=== PATIENT | female | born 1960 | race Caucasian/White ===

== ENCOUNTER → 2020-03-08 | Outpatient (CLI) | payer OTHER, SELFPAY ==
[2015-02-25 07:00] VITALS: BMI 38.9
== END | disposition home or self-care (01) ==
LOC: LABSPEC 15:51
PROVIDERS: PCP Family Medicine; Visit Provider Nurse Practitioner Adult Health
DX: N20.0 Calculus of kidney (principal)
CPT/HCPCS: 87086; 87088

== ENCOUNTER 2023-04-02 13:05 | Emergency (ER) | payer OTHER, SELFPAY ==
[2023-04-02] VITALS (7 sets, daily range): BP systolic 111–144; BP diastolic 74–100; PULSE 104–130; RESP 18–29; TEMP 36.9–37.1; O2SAT 95–100; BMI 31.3
--- NOTE | 2023-04-02 13:13 | NURSING ---
NO OLD EKGS
--- NOTE | 2023-04-02 14:12 | EKG12_ITS ---
Test Reason : DIZZY Blood Pressure : / mmHG Vent. Rate : 119 BPM Atrial Rate : 119 BPM P-R Int : 142 ms QRS Dur : 070 ms QT Int : 322 ms P-R-T Axes : 054 -09 076 degrees QTc Int : 452 ms Sinus tachycardia Cannot rule out Inferior infarct , age undetermined Poor R wave progression Abnormal ECG Confirmed by Bobby Lombardo ([id number]), photography editor KAI BENITES ([id number]) on 04/03/2023 10:56:28 AM Referred By: KODAK/AR Confirmed By:Bobby Lombardo
--- NOTE | 2023-04-02 14:15 | RAD_ITS ---
STUDY: X-RAY CHEST REASON FOR EXAM: Female, 62 years old. Chest pain TECHNIQUE: Single AP portable view of the chest. COMPARISON: None. FINDINGS: EKG electrodes are seen. The lungs are clear and expanded. There is no demonstrated pleural abnormality. Normal size heart. Normal mediastinum and alicja. Normal visualized pulmonary arteries. Normal visualized aortic arch and descending thoracic aorta. There are degenerative changes of the visualized thoracic spine. Calcific tendinitis of the right shoulder. There is no demonstrated abnormality of the visualized soft tissue structures of the upper abdomen. RAD/Chest 1 View (Portable) IMPRESSION: No acute abnormality seen. Calcific tendinitis of the right shoulder. Electronically Signed: Darrel Knight MD at 14:33 EST ,
[2023-04-02] MEDS: 0.9% Normal Saline (1000mL) 1,000 ML 1000 ML IV (14:24)
[2023-04-02 14:32] LABS: Absolute Lymphocyte Count 0.66 X10^3/uL (0.83-4.51); Absolute Neutrophil Count 12.8 X10^3/uL (2.0-7.7); Basophil# 0.03 X10^3/uL; Basophil% 0.2 % (0-1); Eosinophil# 1.56 X10^3/uL; Eosinophils% 9.8 % (0-5); Hematocrit 48.7 % (37-47); Hemoglobin 15.5 g/dL (12.0-15.0); Lymphocyte # 0.66 X10^3/ul (0.83-4.51); Lymphocyte % 4.2 % (19-41); Mean Corp Hgb Conc 31.8 g/dL (32-36); Mean Corpuscular Hgb 28.9 pg (27.0-32.0); Mean Corpuscular Volume 90.7 fL (81-99); Mean Platelet Vol. 10.8 fl (6.2-12.0); Monocyte# 0.57 X10^3/uL; Monocyte% 3.6 % (0-10); NRBC Flagged by Analyzer 0 % (0-5); Neutrophil # 12.79 X10^3/uL (2.7-7.7); Neutrophil % 80.7 % (47-70); POSITIVE MORPHOLOGY YES; Platelet Count 215 K/mm3 (150-450); RBC Distribution Width CV 14.7 % (11.6-14.6); RBC Distribution Width SD 48.5 fl (35.1-43.9); Red Blood Count 5.37 M/mm3 (4.2-5.4); White Blood Count 15.8 K/mm3 (4.4-11.0)
[2023-04-02 14:34] LABS: Differential Indicated SCAN CRITERIA MET
--- NOTE | 2023-04-02 14:39 | CT_ITS ---
EXAM: CT ANGIOGRAPHY HEAD AND NECK WITH INTRAVENOUS CONTRAST CLINICAL INDICATION: Neuro deficit, acute, stroke suspected TECHNIQUE: [place] [facility] [place]/head and neck CT angiography protocol performed with intravenous contrast. This CT exam was performed using one or more of the following dose reduction techniques: automated exposure control, adjustment of the mA and/or kV according to patient size, and/or use of iterative reconstruction technique. MIP reconstructed images were created and reviewed. CONTRAST: IV 100mL [id number] COMPARISON: No relevant prior studies available. FINDINGS: HEAD: RIGHT ANTERIOR CEREBRAL ARTERY: Unremarkable. No occlusion or significant stenosis. Anterior communicating artery is present. No aneurysm. RIGHT MIDDLE CEREBRAL ARTERY: Unremarkable. No occlusion or significant stenosis. No aneurysm. RIGHT POSTERIOR CEREBRAL ARTERY: Unremarkable. No occlusion or significant stenosis. No aneurysm. RIGHT INTRACRANIAL INTERNAL CAROTID ARTERY: There is calcification seen within the distal internal carotid arteries bilaterally at the skull base with no stenosis. No dissection or occlusion. RIGHT INTRACRANIAL VERTEBRAL ARTERY: Unremarkable. No significant stenosis. No dissection or occlusion. LEFT ANTERIOR CEREBRAL ARTERY: Unremarkable. No occlusion or significant stenosis. No aneurysm. LEFT MIDDLE CEREBRAL ARTERY: Unremarkable. No occlusion or significant stenosis. No aneurysm. LEFT POSTERIOR CEREBRAL ARTERY: Unremarkable. No occlusion or significant stenosis. No aneurysm. LEFT INTRACRANIAL INTERNAL CAROTID ARTERY: See above. LEFT INTRACRANIAL VERTEBRAL ARTERY: Unremarkable. No significant stenosis. No dissection or occlusion. BASILAR ARTERY: Unremarkable. No occlusion or significant stenosis. No aneurysm. OTHER VASCULATURE: Left vertebral artery is larger on the right is dominant supplier to the basilar system. No vascular malformation. NECK: RIGHT COMMON CAROTID ARTERY: Unremarkable. No significant stenosis. No dissection or occlusion. RIGHT EXTRACRANIAL INTERNAL CAROTID ARTERY: Unremarkable. No significant stenosis. No dissection or occlusion. RIGHT EXTERNAL CAROTID ARTERY: Unremarkable. No occlusion. RIGHT EXTRACRANIAL VERTEBRAL ARTERY: Unremarkable. No significant stenosis. No dissection or occlusion. LEFT COMMON CAROTID ARTERY: Unremarkable. No significant stenosis. No dissection or occlusion. LEFT EXTRACRANIAL INTERNAL CAROTID ARTERY: There is dense calcification seen within the left carotid bulb and origin of the left internal carotid artery with the internal carotid artery likely narrowed greater than 50% at its origin. There is no soft plaque identified. LEFT EXTERNAL CAROTID ARTERY: Unremarkable. No occlusion. LEFT EXTRACRANIAL VERTEBRAL ARTERY: Unremarkable. No significant stenosis. No dissection or occlusion. BRACHIOCEPHALIC AND SUBCLAVIAN ARTERIES: Unremarkable as visualized. No occlusion or significant stenosis. LUNG APICES: See above. HEAD and NECK: BONES/JOINTS: Unremarkable. No discrete lytic or blastic abnormalities. SOFT TISSUES: Unremarkable. CAROTID STENOSIS REFERENCE USING NASCET CRITERIA: % ICA stenosis = (1 - narrowest ICA diameter/diameter of distal cervical ICA) x 100. Mild - <50% stenosis. Moderate - 50-69% stenosis. Severe - 70-94% stenosis. Near occlusion - 95-99% stenosis. Occluded - 100% stenosis. CT/CTA Head AND Neck W/ Contrast IMPRESSION: Dense calcification in the left carotid bulb and origin of the left internal carotid artery with the left internal carotid artery is narrowed greater than 50% at its origin. No other stenoses are identified. Electronically Signed: Garfield Soto MD at 17:16 EST ,
--- NOTE | 2023-04-02 14:39 | EX.ED.VIS.HA ---
HPI History of Present Illness Chief Complaint: Dizziness Narrative Narrative: 75-year-old female presenting with dizziness, nausea, vomiting. She states she presented to [facility] on the seventh with dizziness, headaches, nausea and vomiting and states she was about 4 days with symptoms until she was seen there. She had been admitted to the hospital admitted vascular studies that she had mixed plaques bilaterally in the carotids. There was significant stenosis in the right ICA of 70%. In the left ICA there was near occlusion. Patient discharged home to follow-up with [facility] but states nobody was calling her back. Today she has been having lightheadedness which is different than her dizziness. She originally had some double vision but now she states she has visual flashes when she moves her eyes around. She still has mild headache. She still vomiting periodically. She is able to hold down some food and fluids. She complains now of having diarrhea. No new foods or change in diet. Patient is on aspirin 81 mg daily. Patient overall feels somewhat better as her double vision is better but now concern for probably dehydration. Denies chest pain or shortness of breath. No fevers or chills. No abdominal pain. [facility] Medical History Diabetes Hypercholesteremia Hypertension Stroke/cerebrovascular accident Home Medications aspirin 81 mg tablet,delayed release 81 mg PO DAILY@0800 02/24/15 [History Last Taken Unknown] atorvastatin 20 mg tablet 20 mg PO QHS 02/24/15 [History Last Taken Unknown] glipizide 10 mg tablet 10 mg PO BIDAC 02/24/15 [History Last Taken Unknown] lisinopril 20 mg tablet 20 mg PO DAILY 02/24/15 [History Last Taken 02/25/15 04:30] metformin 500 mg tablet,extended release 24 hr 1,000 mg PO BID 02/24/15 [History Last Taken Unknown] metoprolol tartrate 100 mg tablet 100 mg PO DAILY 02/24/15 [History Last Taken 02/25/15 04:30] meclizine 25 mg tablet 25 mg PO TID PRN dizziness or vertigo #20 tabs 04/02/23 [Rx Last Taken Unknown] ondansetron 4 mg disintegrating tablet 4 mg PO Q8H PRN PRN Nausea #14 tabs 04/02/23 [Rx Last Taken Unknown] Allergy/AdvReac Type Severity Reaction Status Date / Time No Known Allergies Allergy Verified 04/02/23 13:06 Surgical History History of coronary artery stent placement Social History Smoking Status: Former smoker ROS ROS ED Constitutional Constitutional ED: Denies chills, fever(s) or sweats Eyes Eyes: Denies blurry vision or change in vision ENT ENT ED: Denies ear pain or sore throat Cardiovascular Cardiovascular: Denies chest pain, palpitations or racing heartbeat Respiratory/Chest Respiratory/Chest: Denies cough, dyspnea or sputum Gastrointestinal Gastrointestinal: Reports diarrhea, nausea and vomiting; Denies abdominal pain or constipation Genitourinary Genitourinary ED: Denies dysuria, hematuria or urinary frequency Musculoskeletal Musculoskeletal: Denies arthralgias, myalgias or neck pain Integumentary Denies abscess, Abrasions or rash Neurologic Neurologic: Reports headache(s); Denies paresthesias or weakness Psychiatric Psychiatric: Denies anxiety, depression, suicidal ideation or suicidal thoughts Endocrine Endocrinology: Denies polydipsia or polyuria EXAM Physical Exam Const Vital Signs: 04/02/23 13:06 04/02/23 14:20 04/02/23 15:00 Temperature 98.5 F Temperature Source Temporal Pulse Rate 130 H 124 H 115 H Respiratory Rate 18 21 H 29 H Blood Pressure 111/74 144/92 H Blood Pressure Mean 86 106 Pulse Ox 100 Oxygen Delivery Method Room Air 04/02/23 16:06 04/02/23 16:00 04/02/23 17:00 Temperature Temperature Source Pulse Rate 105 H 104 H Respiratory Rate 19 H 20 H Blood Pressure 137/82 H 142/100 H Blood Pressure Mean 96 113 Pulse Ox 96 95 Oxygen Delivery Method Room Air Positive well nourished General Appearance ED: NAD HEENT Reports normocephalic atraumatic Eyes PERRL and EOMs intact bilaterally Neck no lymphadenopathy Resp normal respiratory effort Auscultation: Negative for rales, rhonchi or wheezes Cardio regular rhythm Rate: tachycardic GI non-tender and non-distended Neuro oriented x3 and CN's II-XII intact bilaterally Neuro Narrative: No focal neurologic deficits or lateralizing signs or symptoms. Sensorium / Orientation: awake and alert Motor Exam: strength 5/5 throughout Psych mental status grossly normal MDM MDM MDM Narrative Medical decision making narrative: Patient presenting with nausea, vomiting, diarrhea. Recent stroke workup and discharge. She had posterior circulation stroke and some findings of carotid vessel disease. She is to follow-up with [facility] however now she is having nausea, vomiting, diarrhea. She still having headache and lightheadedness more than vertiginous dizziness symptoms. Differential includes stroke, intracranial hemorrhage, dehydration, anemia, electrolyte abnormalities, COVID, flu, influenza. Will obtain CT brain and CTA to rule out stroke or occlusive vessel disease. CBC to assess white blood cell count, hemoglobin, platelets. BMP to assess renal function, electrolytes, glucose. High-sensitivity troponin EKG to rule out dysrhythmia. BNP to rule out CHF. Urinalysis to rule out UTI. COVID, influenza, RSV all obtained. Patient given IV fluids and meclizine help with her dizziness. CBC shows leukocytosis of 15.8. Hemoglobin 15.5. Platelets are normal at 215. Renal function and electrolytes within normal limits. Troponin 6. BNP 24.7. EKG on my interpretation showed sinus tachycardia ventricular rate of 119 bpm without sign of ischemic change. Chest ray my interpretation shows no acute process. CT of the brain she is negative for acute findings. CT brain negative. Ultimately patient counseled that we did not find anything acute for her symptoms. She feels well enough to go home and does not require rehab or inpatient care. This was offered. Patient also asked if she could follow-up with vascular surgery here at [facility] so I did discuss with her that I would give her Dr. Aguilar's name. I do not believe she is in an urgent consult and we do not have vascular surgery on-call today. Patient amenable to this. She discharged home in stable condition. Impression: 1. History of posterior cerebellar stroke 2. Dizziness 3. Leukocytosis 4. Headache 5. Tachycardia Lab Data Attestation: I reviewed the patient's lab results. Labs: Laboratory Results - last 24 hr 04/02/23 04/02/23 04/02/23 14:25 15:25 17:41 WBC 15.8 H RBC 5.37 Hgb 15.5 H Hct 48.7 H MCV 90.7 MCH 28.9 MCHC 31.8 L RDW Std Deviation 48.5 H RDW Coeff of Afsaneh 14.7 H Plt Count 215 MPV 10.8 Immature Gran % (Auto) 1.500 H Neut % (Auto) 80.7 H Lymph % (Auto) 4.2 L Mcdonough % (Auto) 3.6 Eos % (Auto) 9.8 H Baso % (Auto) 0.2 Absolute Neuts (auto) 12.8 H Absolute Lymphs (auto) 0.66 L Nucleated RBC % 0 Differential Comment COMMENT Sodium 143 Potassium 4.6 Chloride 109 H Carbon Dioxide 26.0 Anion Gap 8 BUN 16 Creatinine 1.01 Estim Creat Clear Calc 60.89 Est GFR (MDRD) Af Amer 72 Est GFR (MDRD) Non-Af 59 L BUN/Creatinine Ratio 15.8 Glucose 204 H Calcium 9.5 Troponin I High Sens 6 B-Natriuretic Peptide 24.7 Urine Color Yellow Urine Clarity Clear Urine pH 5.0 Ur Specific [place] 1.020 Urine Protein 15 H Urine Glucose (UA) Normal Urine Ketones 5 H Urine Occult Blood Negative Urine Nitrite Negative Urine Bilirubin 1 H Urine Urobilinogen Normal Ur Leukocyte Esterase 25 H Urine RBC 0-5 SEEN Urine WBC 5-10 SEEN Ur Squamous Epith Cells 0-5 SEEN Urine Bacteria 0 SEEN Urine Mucus RARE POC Glucose 111 H Radiography Diagnostic Testing: Clinical Impression(s) from Imaging Studies Chest X-Ray 04/02/23 14:15 IMPRESSION: No acute abnormality seen. Calcific tendinitis of the right shoulder. Electronically Signed: Darrel Knight MD at 14:33 EST , Head/Neck CTA 04/02/23 14:39 IMPRESSION: Dense calcification in the left carotid bulb and origin of the left internal carotid artery with the left internal carotid artery is narrowed greater than 50% at its origin. No other stenoses are identified. Electronically Signed: Garfield Soto MD at 17:16 EST , Discharge Plan Triage Chief Complaint: Dizziness Other Complaint: Headache Nausea/Vomiting/Diarrhea ED Provider: Chandler Chakraborty Dx/Rx/DC Orders Instructions: ED Headache Unspecified, ED Vertigo, Unspecified Prescriptions: New ondansetron 4 mg tablet,disintegrating 4 mg PO Q8H PRN PRN (Reason: Nausea) Qty: 14 0RF meclizine 25 mg tablet 25 mg PO TID PRN (Reason: dizziness or vertigo) Qty: 20 0RF No Action atorvastatin 20 MG tablet 20 mg PO QHS metoprolol tartrate 100 MG tablet 100 mg PO DAILY lisinopril 20 MG tablet 20 mg PO DAILY glipizide 10 MG tablet 10 mg PO BIDAC aspirin 81 MG tablet 81 mg PO DAILY@0800 metformin 500 MG tablet 1,000 mg PO BID Primary Care Provider: Vee Singletary NP Referrals: Reese Aguilar MD [Med Staff - Active Staff] - 3-5 Days Josephine Celaya MD [Med Staff - Straightedge Worker] - Disposition Disposition: Home, Self Care
[2023-04-02 14:52] LABS: BNP,B-Type NATRIURETIC PEPTIDE 24.7 pg/mL (0-100)
[2023-04-02 14:53] LABS: Anion Gap 8 (5-15); BUN 16 mg/dL (7-18); BUN/Creat Ratio 15.8 RATIO (10-20); Calcium,Total 9.5 mg/dL (8.5-10.1); Chloride 109 mmol/L (98-107); Creatinine, Serum 1.01 mg/dL (0.55-1.02); EST Glomerular Filtration Rate 59 mL/min (>60); Est Glom Filt Rate - Afr Amer 72 mL/min (>60); Estimated Creatinine Clearance 60.89 ml/min; Glucose 204 mg/dL (74-106); Potassium 4.6 mmol/L (3.5-5.1); Sodium Level 143 mmol/L (136-145); Troponin-I HS 6 pg/mL (3.0-54.0)
[2023-04-02 15:36] LABS: Bacteria 0 SEEN /hpf (None Seen)
[2023-04-02 15:38] LABS: Color, Urine Yellow (Yellow); Glucose, Dipstick Normal (Normal); Ketone-Dipstick 5 mg/dl (Negative); Leukocyte Esterase-Dipstick 25 /ul (Negative); Nitrite-Dipstick Negative (Negative); Occult Blood-Urine Negative /ul (Negative); Protein-Dipstick 15 mg/dl (Negative); Urine Clarity Clear (Clear); Urine Urobilinogen Normal (Normal)
[2023-04-02 15:39] LABS: Urine Bilirubin Dipstick 1 mg/dL (Negative)
[2023-04-02 15:45] LABS: Mucous, Urine RARE /hpf (<or=2+); White Blood Cells 5-10 SEEN /hpf (0-5)
[2023-04-02] MEDS: Meclizine HCl 25 MG Tablet PO (15:45)
[2023-04-02 15:46] LABS: Red Blood Cells-Urine 0-5 SEEN /hpf (0-5); Squamous Epithelial Cells - UA 0-5 SEEN /hpf (5-10)
--- NOTE | 2023-04-02 17:43 | ED.RN ---
Pt and demanding food for pt. Educated that we are awaiting md re-evaluation and we cannot give her any food at this time. Pt's got loud and said well have you checked her sugar, she's diabetic! This RN stated she would be happy to check the BG, which was 111, with pt on po meds for DM. continued to be irrate that they've been here for 4 and a half hours! This RN continued education regarding expectations in the ED. Education re-emphasized on all labs and tests back and awaiting MD re-eval.
[2023-04-02 17:59] LABS: Bedside Glucose 111 mg/dL (74-106)
== END 2023-04-02 18:30 | disposition home or self-care (01) ==
PROVIDERS: Emergency Provider Student in an Organized Health Care Education/Training Program; PCP Nurse Practitioner Family; Visit Provider Student in an Organized Health Care Education/Training Program
DX: R11.2 Nausea with vomiting, unspecified (principal); E11.9 Type 2 diabetes mellitus without complications; R19.7 Diarrhea, unspecified; R42 Dizziness and giddiness; I10 Essential (primary) hypertension; E78.00 Pure hypercholesterolemia, unspecified; Z11.52 Encounter for screening for COVID-19; R00.0 Tachycardia, unspecified; D72.829 Elevated white blood cell count, unspecified; Z87.891 Personal history of nicotine dependence; I65.23 Occlusion and stenosis of bilateral carotid arteries; Z79.82 Long term (current) use of aspirin; Z79.84 Long term (current) use of oral hypoglycemic drugs; Z79.899 Other long term (current) drug therapy; Z86.73 Personal history of transient ischemic attack (TIA), and cerebral infarction without residual deficits
CPT/HCPCS: 70496; 70498; 71045; 80048; 81001; 82962; 83880; 84484; 85025; 87631; 93005; 96360; 99284; J7030; Q9967; A4216

== ENCOUNTER 2023-04-29 05:28 | Inpatient (IN) | payer OTHER, SELFPAY ==
[2023-04-29] VITALS (26 sets, daily range): BP systolic 99–147; BP diastolic 44–90; PULSE 64–91; RESP 11–19; TEMP 35.8–36.6; O2SAT 92–100; BMI 32.1; BMI 32.5
--- OUTSIDE RECORDS SUMMARY | 2023-04-29 05:44 | XMS RPT_ITS | CCD ---
Author Name Unknown Address [address] [place] [address] Organization [facility] Care Team Providers Care Dictating Machine Typist Name Role Phone MEDHAT GRIFFIN Unavailable Unavailable AUGUSTO TEMPLE Unavailable Unavailable MEDHAT GRIFFIN Unavailable Unavailable ANAM CARBAJAL Unavailable Unavailable AUGUSTO TEMPLE CNP Consulting Unavailable AUGUSTO TEMPLE CNP Referring Unavailable INDIO, DENISE E Admitting Unavailable INDIO, DENISE E Primary Care Unavailable INDIO, DENISE E Attending Unavailable PROVIDER, UNKNOWN Consulting Unavailable PROVIDER, UNKNOWN Consulting Unavailable SUKHJINDER LEE MD Admitting Unavailable SUKHJINDER LEE MD Primary Care Unavailable SUKHJINDER LEE MD Attending Unavailable AUGUSTO TEMPLE CNP Consulting Unavailable AUGUSTO TEMPLE CNP Referring Unavailable PROVIDER, UNKNOWN Consulting Unavailable PROVIDER, UNKNOWN Consulting Unavailable AUGUSTO TEMPLE CNP Consulting Unavailable HORN, DARSHAN DPM Admitting Unavailable HORN, DARSHAN DPM Primary Care Unavailable HORN, DARSHAN DPM Attending Unavailable PROVIDER, UNKNOWN Consulting Unavailable PROVIDER, UNKNOWN Consulting Unavailable AUGUSTO TEMPLE CNP Consulting Unavailable HORN, DARSHAN DPM Admitting Unavailable HORN, DARSHAN DPM Attending Unavailable HORN, DARSHAN DPM Primary Care Unavailable PROVIDER, UNKNOWN Consulting Unavailable PROVIDER, UNKNOWN Consulting Unavailable AUGUSTO TEMPLE CNP Consulting Unavailable AUGUSTO TEMPLE CNP Attending Unavailable AUGUSTO TEMPLE CNP Primary Care Unavailable AUGUSTO TEMPLE CNP Admitting Unavailable PROVIDER, UNKNOWN Consulting Unavailable PROVIDER, UNKNOWN Consulting Unavailable AUGUSTO TEMPLE CNP Consulting Unavailable AUGUSTO TEMPLE CNP Attending Unavailable AUGUSTO TEMPLE CNP Primary Care Unavailable AUGUSTO TEMPLE CNP Admitting Unavailable PROVIDER, UNKNOWN Consulting Unavailable PROVIDER, UNKNOWN Consulting Unavailable AUGUSTO TEMPLE CNP Consulting Unavailable AUGUSTO TEMPLE CNP Primary Care Unavailable AUGUSTO TEMPLE CNP Attending Unavailable AUGUSTO TEMPLE CNP Admitting Unavailable PROVIDER, UNKNOWN Consulting Unavailable PROVIDER, UNKNOWN Consulting Unavailable AUGUSTO TEMPLE CNP Consulting Unavailable AUGUSTO TEMPLE CNP Attending Unavailable AUGUSTO TEMPLE CNP Primary Care Unavailable AUGUSTO TEMPLE CNP Admitting Unavailable PROVIDER, UNKNOWN Consulting Unavailable PROVIDER, UNKNOWN Consulting Unavailable AUGUSTO TEMPLE CNP Consulting Unavailable AUGUSTO TEMPLE CNP Attending Unavailable AUGUSTO TEMPLE CNP Primary Care Unavailable AUGUSTO TEMPLE CNP Admitting Unavailable PROVIDER, UNKNOWN Consulting Unavailable PROVIDER, UNKNOWN Consulting Unavailable AUGUSTO TEMPLE CNP Consulting Unavailable JAN ADRIAN MD Primary Care Unavailable JAN ADRIAN MD Attending Unavailable JAN ADRIAN MD Admitting Unavailable PROVIDER, UNKNOWN Consulting Unavailable PROVIDER, UNKNOWN Consulting Unavailable AUGUSTO TEMPLE CNP Consulting Unavailable AUGUSTO TEMPLE CNP Attending Unavailable AUGUSTO TEMPLE CNP Primary Care Unavailable AUGUSTO TEMPLE CNP Admitting Unavailable PROVIDER, UNKNOWN Consulting Unavailable PROVIDER, UNKNOWN Consulting Unavailable DANNA MALDONADO MD Admitting Unavailabl e DANNA MALDONADO MD Primary Care Unavailabl DANNA Dawn MD Attending Unavailabl e AUGUSTO TEMPLE CNP Consulting Unavailable PROVIDER, UNKNOWN Consulting Unavailable PROVIDER, UNKNOWN Consulting Unavailable CSERNYIK, ELIEZER DO Admitting Unavailable CSERNYIK, ELIEZER DO Primary Care Unavailable CSERMANDI, ELIEZER DO Attending Unavailable AUGUSTO TEMPLE CNP Consulting Unavailable AUGUSTO TEMPLE CNP Referring Unavailable PROVIDER, UNKNOWN Consulting Unavailable PROVIDER, UNKNOWN Consulting Unavailable Problems Active Problems Problem Classification Problem Date Documented Da te Episodic/Chronic Acute cerebrovascular disease (3 sources) Cerebral infarction, unspecified; Translations: [Cerebral infarction, unspecified] Onset: 03-28-2023 Chronic Diabetes mellitus with complications (2 sources) Type 2 diabetes mellitus with hyperglycemia; Translations: [Type 2 diabetes mellitus with hyperglycemia] Onset: 02-20-2023 Chronic Other gastrointestinal disorders (1 source) Diarrhea, unspecified; Translations: [Diarrhea, unspecified] Onset: 03-27-2023 Episodic Other nutritional; endocrine; and metabolic disorders (4 sources) Hyperuricemia without signs of inflammatory arthritis and tophaceous disease; Translations: [Hyperuricemia without signs of inflammatory arthritis and tophaceous disease] Onset: 06-08-2022 Episodic Past or Other Problems Problem Classification Problem Date Documented Da te Episodic/Chronic Other non-traumatic joint disorders (3 sources) Pain in unspecified joint; Translations: [Pain in unspecified joint] Onset: 05-11-2022 Episodic Results Test Name Value Interpretation Reference Range Facil ity Encounters Encounter Date Encounter Type Care Provider Facility Start: 04-20-2023 End: 04-20-2023 ambulatory AUGUSTO GUILLAUME [facility] Start: 03-28-2023 End: 03-29-2023 Evaluation and management of inpatient SUKHJINDER RODRIGUEZ [facility] Start: 03-27-2023 ambulatory AUGUSTO GUILLAUME [facility] Start: 02-24-2023 End: 02-24-2023 Emergency department patient visit ELIEZER WOODY [facility] Start: 02-20-2023 End: 02-20-2023 ambulatory AUGUSTO GUILLAUME [facility] Start: 02-14-2023 End: 02[facility]14[facility]: 11-27-2022 End: 11-27-2022 ambulatory AUGUSTO [facility] Start: 11-24-2022 End: 11-24-2022 Emergency department patient visit AUGUSTO GUILLAUME [facility] Start: 10-15-2022 End: 10-15-2022 ambulatory AUGUSTO [facility] Start: 06-20-2022 End: 06-20-2022 ambulatory AUGUSTO [facility] Start: 06-08-2022 End: 06-08-2022 ambulatory AUGUSTO GUILALUME [facility] Start: 05-24-2022 End: 05-24-2022 ambulatory AUGUSTO GUILLAUME [facility] Start: 05-11-2022 End: 05-11-2022 ambulatory UAGUSTO [facility] Start: 07-25-2017 End: 07-26-2017 Ambulatory MEDHAT GRIFFIN Facility:A Payers Date Payer Category Payer Unknown [id number] 2017 Unknown [id number] 1960 Unknown [id number] 2.16.8 [id number] 1961 Unknown [id number] 2.16.8 [id number] 1961 Unknown [id number] 2.16.8 [id number] 1961 Unknown [id number] 2.16.8 [id number] 1961 Unknown [id number] 2.16.8 [id number] 1961 Unknown [id number] 2.16.8 [id number] 1961 Unknown [id number] 2.16.8 [id number] 1961 Unknown [id number] 2.16.8 [id number] 1961 Unknown [id number] 2.16.8 [id number] 1961 Unknown [id number] 2.16.84 [id number] 1961 Unknown [id number] 2.16.84 [id number] 1961 Unknown [id number] 2.16.84 [id number] 1961 Unknown [id number] 2.16.84 [id number] Summary Purpose Family History No Family History Records FoundNo Family History Records FoundNo Family History Records Found Advance Directives No Advanced Directives Records FoundNo Advanced Directives Records FoundNo Advanced Directives Records Found Additional Source Comments INFORMATION SOURCE (unrecogn ized section and content) DATE CREATED AUTHOR AUTHOR'S ORGANIZ ATION 01/13/2021 [facility] DATE CREATED AUTHOR AUTHOR'S ORGANIZ ATION [facility] FOR RECORDS PERTAINING TO PATIENTS WHO ARE OR HAVE BEEN ENROLLED IN A CHEMICAL DEPENDENCY/SUBSTANCEABUSE PROGRAM, SOME INFORMATION MAY BE OMITTED. This clinical summary was aggregated from multiple sources. Caution should be exercised in using it in the provision of clinical care. This summary normalizes information from multiple sources, and as a consequence, information in this document may materially change the coding, format and clinical context of patient data. In addition, data may be omitted in some cases. CLINICAL DECISIONS SHOULD BE BASED ON THE PRIMARY CLINICAL RECORDS. [facility]. provides no warranty or guarantee of the accuracy or completeness of information in this document.
[2023-04-29] MEDS: Lactated Ringers 1,000 ML 15 ML IV (06:18)
[2023-04-29] MEDS: 0.9% Normal Saline (1000mL) 1,000 ML IV (06:19)
[2023-04-29 06:53] LABS: Bedside Glucose 146 mg/dL (74-106)
--- NOTE | 2023-04-29 07:28 | HP.PCM_ITS ---
History and Physical Allergies No Known Allergies Allergy (Verified 04/10/23 15:19) Medications aspirin 81 mg tablet,delayed release 81 mg PO DAILY@0800 02/24/15 [History Confirmed 04/10/23] atorvastatin 20 mg tablet 20 mg PO QHS 02/24/15 [History Confirmed 04/10/23] glipizide 10 mg tablet 10 mg PO BIDAC 02/24/15 [History Confirmed 04/10/23] metformin 500 mg tablet,extended release 24 hr 1,000 mg PO BID 02/24/15 [History Confirmed 04/10/23] metoprolol tartrate 100 mg tablet 100 mg PO DAILY 02/24/15 [History Confirmed 04/10/23] meclizine 25 mg tablet 25 mg PO TID PRN dizziness or vertigo #20 tabs 04/02/23 [Rx Confirmed 04/10/23] ondansetron 4 mg disintegrating tablet 4 mg PO Q8H PRN PRN Nausea #14 tabs 04/02/23 [Rx Confirmed 04/10/23] PFSH Medical History Diabetes Hypercholesteremia Hypertension Stroke/cerebrovascular accident Surgical History History of coronary artery stent placement Family History Other Asthma Breast cancer CAD (coronary artery disease) Cancer Colon cancer Myocardial infarction Social History Smoking Status: Former smoker how long ago did patient quit smokin yrs HPI HPI HPI: DANYELLE GRANDE, is a 62 F who presents to the office today for evaluation of symptomatic left carotid stenosis. On ~ Mar she awoke not feeling well and wi th right hand numbness/weakness. She was taken to outside hospital where MRI revealed 2 left parietal infarcts and duplex revealed >70% left ICA stenosis. She was discharged and referred to vascular surgery but was unable to get connected with them. She subsequently was further evaluated with CTA neck here and referred to us for evaluation. No prior similar events, symptoms have fully resolved. She thinks she might have had more hand numbness intermittently that was brief in duration. She has been on ASA/plavix since cardiac stents several years ago. ROS General General: No weight change, appetite, fatigue, colon cancer, breast cancer or weakness HEENT HEENT: No difficulty swallowing, eye injury, eye surgery, swollen glands or hoarseness Endo Endocrine: Yes diabetes mellitus; No thyroid disease, thyroid cancer, Hair loss, heat intolerance or cold intolerance Skin Skin: No rash or changing moles Musc Musculoskeletal: Yes gout; No back problems, arthritis, rheumatoid arthritis or joint pain Cardio Cardiovascular: Yes high blood pressure, heart attack and heart stent; No murmur, pacemaker, heart disease, atrial fibrillation, palpitations, shortness of breat with exertion or chest pain Psych Psychiatric: No depression, anxiety or hearing voices Resp Respiratory: No shortness of breath, Yes sleep apnea, No cough, No COPD, No asthma, No emphysema and No wheezing Gastro Gastrointestinal: No abdominal pain, Yes nausea or vomiting, Yes diarrhea, No constipation, No blood in stool, No acid reflux, No hemorrhoids, No ulcers, No gallbladder problem and No black,tarry stools Hussain Hematologic: No blood thinners, No blood disorders, No bleeding, No anemia and No blood clots Neuro Neurologic: No system reviewed and no additional complaints, except as documented, No as per HPI, No abnormal gait, No abnormal hearing, No abnormal movements, No abnormal speech, No behavioral changes, No burning sensations, No confusion, No convulsions, Yes disequilibrium, Yes dizziness, No localized weakness, No frequent falls, Yes headache(s), No lack of coordination, No loss of vision, No memory loss, Yes numbness, No other visual disturbances, No radicular pain, No restless legs, No sensory deficit, No syncope, Yes tingling, No tremor(s), No weakness and No other Exam Const General: cooperative, healthy appearing, comfortable, no acute distress and well developed Nutritional Appearance: well nourished Orientation: alert, awake and oriented x3 HENMT Head: normocephalic and atraumatic Ears: hearing grossly normal bilaterally Nose: external nose normal Eyes General: appearance normal, both eyes and all related structures EOM: EOM intact bilaterally Neck Neck: normal visual inspection, full ROM, no lymphadenopathy and trachea midline Thyroid: thyroid normal Lymphatic: no lymphadenopathy noted Resp Effort & Inspection: normal respiratory effort, able to speak in complete sentences, symmetric chest movement, no audible wheezes, not labored, no stridor and no use of accessory muscles Cardio Rate: regular rate Rhythm: regular rhythm Pulses: brachial pulses present, radial pulses present, posterior tibial pulses present and dorsalis pedis present Skin General: no rashes or lesions noted and no erythema Wounds: no wounds Neuro Cranial Nerves: CN's II-XI intact bilaterally and EOM intact bilaterally Speech: speech normal Gait: normal gait Motor: strength 5/5 throughout Sensory Exam: no sensory deficits noted Psych Appearance: grossly normal and well kempt Mental Status: mental status grossly normal Mood: congruent mood Speech and Movement: speech and movement normal Thought Content: normal Judgment: judgment good Coding Level of Care Code Off vis,new,level 4 Diagnoses Stenosis of left internal carotid artery with cerebral infarction I63.232 Assessment and Plan Assessment and Plan (1) Stenosis of left internal carotid artery with cerebral infarction: Status: Chronic Comment: CTA- images reviewed, left ICA 83% stenosis by NASCET, right 51% NASCET Plan: -symptomatic left ICA stenosis with severe stenosis -significant calcification -plan CEA
--- NOTE | 2023-04-29 07:30 | PLAQ_PTH ---
PATHOLOGY RESULTS PATIENT: DANYELLE GRANDE LOC: ICU U#:[id number] AGE/SX: 62/F ROOM: [place] [id number] RE04/29/[address]: Dr. Reese Aguilar MD : 1960 BED: 1 DIS: 04/30/2023 SPEC #: [id number] RECD: 04/29/23 12:50 STATUS: ÁNGELA REClifford #: [id number] ARNIE: 04/29/23 07:[address]: Reese Aguilar DEPT: SURGICAL PATHOLOGY RECD BY: Hattie Back ENTERED: 04/29/23 13:45 SP TYPE: PLAQUE OTHR DR: Vee Singletary, RUDI-Salima Tissues: PLAQUE Procedures: Decalcification bone/plaque Surgery Specimen Level III HEADER OPERATION: Carotid Endarterectomy PRE-OP DIAGNOSIS: Stenosis of left internal carotid artery with cerebral infarction TISSUE SUBMITTED: Plaque left carotid artery MICROSCOPIC DIAGNOSIS Plaque left carotid artery, Endarterectomy; Atherosclerotic tissue with moderate calcifications (plaque). / 05/02/2023 GROSS DESCRIPTION Received in fixative is one container labeled with the patient's name and designated Plaque left carotid artery. The specimen consists of two irregular and elongated fragments of amato-yellow plaque-like material that in aggregate measure 2.2 x 1.0 x 1.0 cm. The specimen is totally submitted and totally submitted in one cassette after decalcification. DILIP/ 04/29/23 TC:5 CPT: 97135,63199
[2023-04-29] MEDS: Cefazolin 2 GM in 0.9% Normal Saline (100mL Bag) 100 ML IV (08:25)
[2023-04-29] MEDS: Heparin Injection (Vial) 5,000 UNIT/ML VIAL 5000 UNIT (09:12)
[2023-04-29] MEDS: Nitro/D5w 25MG/250ML Bottle 25 MG (10:56)
--- NOTE | 2023-04-29 10:58 | PCM.OPRPT ---
Report of Operation Date of Procedure: 04/29/23 Pre-Operative Diagnosis: symptomatic left carotid stenosis Post-Operative Diagnosis: same Surgery/Procedure Performed:: left carotid endarterectomy Surgeon: Reese Aguilar Type of Anesthesia: General Drains: 19 Fr TJ Estimated Blood Loss (mL): 25 Description of Procedure: HPI: Patient is a 62-year-old female with previous left hemispheric cerebrovascular accident and severe carotid stenosis. She presents now for carotid endarterectomy. Description of procedure: Upon obtaining form consent and verification correct patient procedure site patient was taken to the operating where she was placed under general anesthesia. She was then positioned prepped and draped in usual sterile fashion a time out was performed. Oblique incision was made along the sternocleidomastoid and Bovie electrocautery to dissect down through the subcutaneous tissue to the level of platysma. The platysma was then divided and self-retaining retractors put in position. Further dissection carried down to the sternocleidomastoid which was freed along its anterior border and retracted laterally. Sharp dissection was then used to dissect free the jugular vein with the facial vein identified, ligated with silk ties, and divided. This was then retracted laterally exposing the carotid vessels and sharp dissection used to dissect free the common carotid artery proximally with care taken to identify and protect the vagus nerve. A right angle was used to place a vessel loop and attention turned to the internal carotid artery. Sharp dissection used dissect free the internal carotid artery distal to the palpable and visible plaque with care taken to identify and protect the hypoglossal nerve. A right angle was used to place a vessel loop and the patient was in heparinized allowed to surveilled for 3 minutes. Subsequent heparin dosing was performed based on ACT results. Sharp dissection was then used to dissect free the external carotid artery with a right angle used to place a vessel loop. Vessels were then occluded first the internal followed by the common and external and a longitudinal arteriotomy created 11 blade extended with Lundberg scissors. A 10 Bengali [place] shunt was then placed first in the internal carotid artery allowed to backbleed before being placed in the common carotid artery. The shunt was interrogated Doppler found to be patent with low size and signal. We then performed her endarterectomy with a freer elevator with satisfactory endpoint distally onto the internal carotid artery and eversion endarterectomy of the external carotid artery. The limb was then flushed with heparinized saline to clear of debris and a bovine pericardial patch secured in position with a 6-0 Prolene in a running fashion. Prior to completing the suture line the shunt was removed and the vessels back bled. After completing the suture line the internal carotid artery was allowed to backbleed into the bifurcation and then reoccluded as origin and then the clamps released from the external and the common carotid arteries allowing 10 heartbeats of antegrade flow to flush prior to reestablishing flow into the internal carotid artery. After clamps removed satisfactory stasis was noted and the vessels were interrogated with Doppler. The internal carotid arteries. Low resistance signal in the external carotid was patent with normal signal. Heparin was then reversed with protamine and 19 Bengali channel TJ placed via separate stab incision. The incision was then closed with 2-0 Vicryl, 3-0 Vicryl, 4 Monocryl and Dermabond for the skin. At the conclusion of the case patient was awakened anesthesia moving all extremities to command with cranial nerves intact. She was then taken the recovery room with anticipated mission intensive care unit for hemodynamic and neurologic monitoring.
[2023-04-29] MEDS: Bupivacaine Mpf 0.5% 30 ML VIAL (11:04)
[2023-04-29] MEDS: 0.9% Normal Saline (1000mL) 1,000 ML 15 ML IV (11:26)
[2023-04-29 13:01] LABS: Bedside Glucose 229 mg/dL (74-106)
[2023-04-29] MEDS: 0.45% Normal Saline 1,000 ML 75 ML IV (13:01)
[2023-04-29] MEDS: Acetaminophen 500 MG Tablet 1000 MG PO ×2 (13:57→20:44)
[2023-04-29] MEDS: Cefazolin 1 GM/50 ML BAG IV ×2 (13:57→20:43)
[2023-04-29 17:25] LABS: Bedside Glucose 149 mg/dL (74-106)
--- NOTE | 2023-04-29 20:00 | NURSING ---
Telephone order from Dr. Aguilar given to louise RN to remove femoral arterial line so patient could get up and attempt to void on the BSC. Sutures removed and arterial line removed while holding pressure. Pressure held for 10 minutes and gauze dressing applied. Sandbag placed over site. Patient to remain on bedrest for 2 hours until she may get up.
[2023-04-29] MEDS: Atorvastatin Calcium 80 MG Tablet PO (20:44)
[2023-04-29 21:04] LABS: Bedside Glucose 191 mg/dL (74-106)
[2023-04-30] VITALS (15 sets, daily range): BP systolic 112–134; BP diastolic 57–97; PULSE 58–89; RESP 12–21; TEMP 36.2–36.3; O2SAT 95–100; BMI 32.5
[2023-04-30] MEDS: 0.45% Normal Saline 1,000 ML 75 ML IV (02:43)
[2023-04-30 02:57] LABS: Absolute Lymphocyte Count 1.26 X10^3/uL (0.83-4.51); Absolute Neutrophil Count 6.8 X10^3/uL (2.0-7.7); Basophil# 0.01 X10^3/uL; Basophil% 0.1 % (0-1); Eosinophil# 0.01 X10^3/uL; Eosinophils% 0.1 % (0-5); Hematocrit 32.3 % (37-47); Hemoglobin 10.6 g/dL (12.0-15.0); Lymphocyte # 1.26 X10^3/ul (0.83-4.51); Lymphocyte % 14.1 % (19-41); Mean Corp Hgb Conc 32.8 g/dL (32-36); Mean Corpuscular Hgb 30.2 pg (27.0-32.0); Mean Platelet Vol. 10.8 fl (6.2-12.0); Monocyte# 0.83 X10^3/uL; Monocyte% 9.3 % (0-10); NRBC Flagged by Analyzer 0 % (0-5); Neutrophil # 6.81 X10^3/uL (2.7-7.7); Neutrophil % 76.1 % (47-70); Platelet Count 179 K/mm3 (150-450); RBC Distribution Width CV 14.4 % (11.6-14.6); RBC Distribution Width SD 48.2 fl (35.1-43.9); Red Blood Count 3.51 M/mm3 (4.2-5.4)
[2023-04-30 03:06] LABS: Bedside Glucose 134 mg/dL (74-106)
[2023-04-30] MEDS: Acetaminophen 500 MG Tablet 1000 MG PO (05:07)
[2023-04-30] MEDS: Enoxaparin 40 MG/0.4 ML Syringe SC (08:05)
[2023-04-30] MEDS: Clopidogrel Bisulfate 75 MG Tablet PO (08:05)
[2023-04-30] MEDS: glipiZIDE XL 5 MG Tablet PO (08:05)
[2023-04-30] MEDS: Aspirin E.C. 81 MG Tablet PO (08:05)
[2023-04-30] MEDS: metFORMIN (XR) 500 MG Tablet 1000 MG PO (08:05)
[2023-04-30] MEDS: 0.9% Saline Lock 10 ML Syringe IV (08:13)
[2023-04-30 08:32] LABS: Bedside Glucose 137 mg/dL (74-106)
--- NOTE | 2023-04-30 09:23 | CASEMGMT ---
SARA WOODS Assessment Face to Face with patient for initial transition planning/care coordination assessment. SARA WOODS introduced self and role at [facility], pt voices understanding. Pt is A&Ox4 and is resting comfortably in bed and is calm. Care providers, pharmacy, and demographics verified. Admitting dx: Carotid Endarterectomy LACE Strata: 1 PCP: Vee Singletary ([employer]) Specialists: Patrick (Cardio), Angel (Neuro) Preferred Pharmacy: [facility] Insurance: [employer] Prescription Benefit: Yes LNOK: Lena Reynoso (DARCY) Living Arrangements: Pt lives alone in an apartment with 2 steps to enter with a HR. Pt states there is a basement with a slope/ ramp to go down. Pt denies issues at home. ADLs/IADLs: Ind Transportation: Self, pt cousin DME: Pt states that she has a working BGM and enough supplies to check her BS at home. Pt denies all other DME uses or needs. HHC/SNF: Denies history or needs. Pt?s goal: Home no needs. Plan: 6-click is 21. Therapy evaluation pending. Pt states that her cousin and daughter are good resources that help her at home. Pt states that she feels safe and comfortable being DC home with no additional needs at this time. Pt declines HH and OP therapy at time of assessment. CM to follow for safe DC home. Martir Will RN, CM
--- NOTE | 2023-04-30 16:06 | DS.PCM_ITS ---
Providers Date of Admission: 04/29/23 Date of Discharge: 04/30/23 Primary Care Physician: Vee Singletary, RUDI-C Reason For Visit: Carotid Endarterectomy Medications at Discharge Home Medications aspirin 81 mg tablet,delayed release 81 mg PO DAILY@0800 HEART 02/24/15 metformin 500 mg tablet,extended release 24 hr 1,000 mg PO BID DIABETIC 02/24/15 metoprolol tartrate 100 mg tablet 100 mg PO DAILY HEART 02/24/15 meclizine 25 mg tablet 25 mg PO TID PRN dizziness or vertigo #20 tabs 04/02/23 ondansetron 4 mg disintegrating tablet 4 mg PO Q8H PRN PRN Nausea #14 tabs 04/02/23 allopurinol 300 mg tablet 300 mg PO DAILY GOUT 04/17/23 clopidogrel 75 mg tablet 75 mg PO DAILY CAD 04/17/23 dicyclomine 20 mg tablet 20 mg PO PRN PRN IBS 04/17/23 atorvastatin 80 mg tablet 80 mg PO QHS Cholesterol 04/29/23 glipizide 5 mg tablet, extended release 24 hr 5 mg PO DAILY diabetes 04/29/23 oxycodone 5 mg tablet 5 mg PO Q8H PRN PRN Pain Score 4-10 5 days #15 tabs 04/30/23 Hospital Course Summary of Care Provided Hospital Course: Mrs. Kyra Roman is a 62 y/o female who underwent L CEA on 04/29/23. Postoperatively, she was routinely admitted to the ICU for neurologic and hemodynamic monitoring. Following surgery she was noted to have tongue deviation which has somewhat improved overnight. The hypoglossal nerve was identified and protected during surgery, but was manipulated for necessary exposure so this tongue deviation was not unexpected. She did pass a bedside dysphagia screen. Otherwise, she has remained neurologically stable. She has remained hemodynamically stable throughout her admission. TJ drain was removed today without issue. The incision site is satisfactory in appearance. She had some urinary retention postoperatively which has improved to her baseline. She is ambulating well and her pain is well controlled. She is medically stable for discharge home today with anticipated follow-up in the office on 05/16/23. Physical Exam Const oriented x3 and no apparent distress HEENT normocephalic, head/scalp atraumatic, hearing grossly normal bilaterally, external ears normal and external nose normal Eyes EOMs intact bilaterally General Eye: normal appearance of both eyes Neck Neck Narrative: L CEA incision site with surgical glue intact. No focal swelling, erythema, ecchymosis. Resp normal respiratory effort and clear to auscultation bilaterally Cardio regular rate and regular rhythm Extremity no clubbing, cyanosis or edema Skin no rashes or lesions noted and no wounds General Skin Exam: no breakdown Neuro Neuro Narrative: Tongue deviation as noted but otherwise neurologically intact Psych mental status grossly normal Appearance: grossly normal Attitude: calm and engaged Activity / Motor Behavior: appropriate eye contact Mood & Affect: euthymic mood Judgement: judgement good Weight / BMI Weight Weight: 189 lb 6.033 oz Body Mass Index (BMI) 32.5 ABG / Lab / Microbiology Data 04/30/23 02:45 Laboratory: Laboratory Results - last 24 hr 04/29/23 17:02: POC Glucose 149 H 04/29/23 20:42: POC Glucose 191 H 04/30/23 02:42: POC Glucose 134 H 04/30/23 02:45: WBC 9.0, RBC 3.51 L, Hgb 10.6 L, Hct 32.3 L, MCV 92.0, MCH 30.2, MCHC 32.8, RDW Std Deviation 48.2 H, RDW Coeff of Afsaneh 14.4, Plt Count 179, MPV 10.8, Immature Gran % (Auto) 0.300, Neut % (Auto) 76.1 H, Lymph % (Auto) 14.1 L, [place] % (Auto) 9.3, Eos % (Auto) 0.1, Baso % (Auto) 0.1, Absolute Neuts (auto) 6.8, Absolute Lymphs (auto) 1.26, Nucleated RBC % 0 04/30/23 08:12: POC Glucose 137 H D/C Instructions Discharge Diet: No restrictions May shower in (days): 1 Weight Bearing Status: Weight bearing as tolerated Lifting Restricted to (Lbs): 20 Lifting Restrictions: Do not lift greater than 20 pounds for 3 weeks Call your doctor if your incision/area has: Sudden Increased Bleeding, Increased Pain/ Swelling and Foul Smelling Discharge Call your doctor if you observe: Fever of 101 or Higher and Uncontrolled pain Additional Instructions: You have a small bandage over the site from which the surgical drain was removed. You may remove this bandage tomorrow. As long as there is no residual drainage, you may leave this open to air. If you do notice some continued drainage, you may re-cover with a Band-Aid. Your incision site is covered with surgical glue which will continue to protect it. The surgical glue will peel/flake off on its own over the next few weeks. Please do not pick at it. You may shower tomorrow. It is okay for soap and water to rinse over the incision site, pat to dry. Do not submerge the incision site in water such as to take a bath or go swimming etc. for 3 weeks. Do not lift greater than 20 pounds for 3 weeks. Otherwise, please continue with activity as tolerated. Do not drive until you can turn your head well enough to safely check your blind spots. I have prescribed a prescription pain medication oxycodone 5 mg tablets to be taken by mouth every 8 hours as needed for pain. This is an opioid pain medication and is to be taken only as directed and as needed. Do not take in combination with any other prescription pain medications. You may take this in addition to Tylenol or ibuprofen as allowed. Follow-up in the office in 2 to 4 weeks. If an appointment has not already been scheduled then please contact the office at [phone] to make your appointment. Please call or return to the office sooner as needed. Please Follow Up With: Shasta De Los Santos PA When: 05/16/2023 Meaningful Use Info Meaningful Use Diagnoses (Choose all that apply): None applicable Discharge Plan Admission Admit Date/Time: 04/29/23 05:28 Primary Reason for Your Visit: Left Carotid Endarterectomy Attending Provider: Reese Aguilra Primary Care Provider: Vee Singletary NP Instructions Additional Instructions / Restrictions: You have a small bandage over the site from which the surgical drain was removed. You may remove this bandage tomorrow. As long as there is no residual drainage, you may leave this open to air. If you do notice some continued drainage, you may re-cover with a Band-Aid. Your incision site is covered with surgical glue which will continue to protect it. The surgical glue will peel/flake off on its own over the next few weeks. Please do not pick at it. You may shower tomorrow. It is okay for soap and water to rinse over the incision site, pat to dry. Do not submerge the incision site in water such as to take a bath or go swimming etc. for 3 weeks. Do not lift greater than 20 pounds for 3 weeks. Otherwise, please continue with activity as tolerated. Do not drive until you can turn your head well enough to safely check your blind spots. I have prescribed a prescription pain medication oxycodone 5 mg tablets to be taken by mouth every 8 hours as needed for pain. This is an opioid pain medi cation and is to be taken only as directed and as needed. Do not take in combination with any other prescription pain medications. You may take this in addition to Tylenol or ibuprofen as allowed. Your follow-up appointment is scheduled for 05/16/2023. If you need to change this appointment or have any other questions/concerns, please contact the office at [phone]. Discharge Orders/Prescriptions Prescriptions: New oxycodone 5 mg Tablet 5 mg PO Q8H PRN PRN (Reason: Pain Score 4-10) 5 Days Qty: 15 0RF Continued metoprolol tartrate 100 MG tablet 100 mg PO DAILY aspirin 81 MG tablet 81 mg PO DAILY@0800 metformin 500 MG tablet 1,000 mg PO BID ondansetron 4 mg tablet,disintegrating 4 mg PO Q8H PRN PRN (Reason: Nausea) Qty: 14 0RF meclizine 25 mg tablet 25 mg PO TID PRN (Reason: dizziness or vertigo) Qty: 20 0RF allopurinol 300 mg tablet 300 mg PO DAILY Patient Comments: TAKE 1 TABLET BY MOUTH ONCE DAILY dicyclomine 20 mg tablet 20 mg PO PRN PRN (Reason: IBS) Patient Comments: TAKE 1 TABLET BY MOUTH 4 TIMES DAILY NEEDED clopidogrel 75 mg tablet 75 mg PO DAILY Patient Comments: TAKE 1 TABLET BY MOUTH ONCE DAILY atorvastatin 80 mg tablet 80 mg PO QHS glipizide 5 mg tablet extended release 24hr 5 mg PO DAILY Discontinued atorvastatin 20 MG tablet 20 mg PO QHS glipizide 10 MG tablet 10 mg PO BIDAC Referrals / Follow Up: Vee Singletary NP, [employer] [Primary Care Provider] - Disposition Disposition (needs filled in before D/C Order can be placed): Home, Self Care
[2023-05-01 13:00] LABS: ACT Activated Clotting Time 260 sec (74-137)
== END 2023-04-30 16:55 | disposition home or self-care (01) | DRG 39 ==
LOC: ACINP 05:35 → ICU 08:25
PROVIDERS: Admitting Provider Surgery Trauma Surgery; PCP Nurse Practitioner Family; Visit Provider Surgery Trauma Surgery
PROC: 03CL0ZZ Extirpation of Matter from Left Internal Carotid Artery, Open Approach (ICD-10-PCS; CPT 35301; principal; 2023-04-29 07:10)
DX: I65.22 Occlusion and stenosis of left carotid artery (principal); E11.9 Type 2 diabetes mellitus without complications; I10 Essential (primary) hypertension; E78.00 Pure hypercholesterolemia, unspecified; I25.10 Atherosclerotic heart disease of native coronary artery without angina pectoris; I25.2 Old myocardial infarction; G52.3 Disorders of hypoglossal nerve; Z95.5 Presence of coronary angioplasty implant and graft; Z79.02 Long term (current) use of antithrombotics/antiplatelets; Z79.82 Long term (current) use of aspirin; Z79.84 Long term (current) use of oral hypoglycemic drugs; Z79.899 Other long term (current) drug therapy; Z86.73 Personal history of transient ischemic attack (TIA), and cerebral infarction without residual deficits; Z87.891 Personal history of nicotine dependence
CPT/HCPCS: 82962; 85025; 85347; 86850; 86900; 86901; 88304; 88311; 94668; 99252; A4648; J7030; J7120; A4216; G0463; J2405

== ENCOUNTER → 2023-11-12 | Outpatient (CLI) | payer OTHER, SELFPAY ==
--- NOTE | 2023-11-12 10:39 | CDU_ITS ---
Reason For Study: s/p Lt CEA Rt. Velocities/BP Lt. Velocities/BP Prox CCA 82/17 cm/sec. Prox CCA 89/20 cm/sec. Mid CCA 62/11 cm/sec. Mid CCA 87/23 cm/sec. Dist CCA 74/17 cm/sec. Dist CCA 73/20 cm/sec. Prox ICA 218/31 cm/sec. Prox ICA 79/16 cm/sec. Mid ICA 71/16 cm/sec. Mid ICA 60/22 cm/sec. Dist ICA 66/20 cm/sec. Dist ICA 71/27 cm/sec. Rt. ICA/CCA = 3.5. Lt. ICA/CCA = 0.9. Prox ECA 159/43 cm/sec. Prox ECA 105/11 cm/sec. Rt. Vert. 45/10 cm/sec. Lt. Vert. 50/17 cm/sec. Right Extracranial There is intimal thickening but no significant atherosclerotic plaque noted in the right common carotid artery. There is heterogeneous, irregular atherosclerotic plaque noted in the right internal carotid artery. There is heterogeneous, irregular atherosclerotic plaque noted in the right external carotid artery. Antegrade flow is noted in the right vertebral artery. Left Extracranial There is heterogeneous, irregular atherosclerotic plaque noted in the left common carotid artery. There is intimal thickening but no significant atherosclerotic plaque noted in the left internal carotid artery. There is no significant atherosclerotic plaque noted in the left external carotid artery. Antegrade flow is noted in the left vertebral artery. Procedure Carotid Duplex [id number]. This is a Carotid Duplex examination using B-mode, color flow and specral Doppler. Exam performed in department. VL/Carotid Duplex Ultrasound Interpretation Summary Moderate (50-69%) stenosis right extracranial internal carotid. Normal left extracranial internal carotid. Patent and antegrade vertebrals bilaterally. Ordering Physician: Shasta De Los Santos Referring Physician: Vee Singletary Performed By: Rani Jones, JAYMECS, RVT
== END | disposition home or self-care (01) ==
LOC: CVS 10:36
PROVIDERS: PCP Nurse Practitioner Family; Referring Provider Physician Assistant; Visit Provider Physician Assistant
DX: I63.232 Cerebral infarction due to unspecified occlusion or stenosis of left carotid arteries (principal); Z98.890 Other specified postprocedural states
CPT/HCPCS: 93880

== ENCOUNTER → 2024-02-05 | Outpatient (CLI) | payer OTHER, SELFPAY ==
[2024-02-05 16:39] LABS: Absolute Lymphocyte Count 1.06 X10^3/uL (0.83-4.51); Absolute Neutrophil Count 8.4 X10^3/uL (2.0-7.7); Basophil# 0.03 X10^3/uL; Basophil% 0.3 % (0-1); Eosinophil# 0.02 X10^3/uL; Eosinophils% 0.2 % (0-5); Hematocrit 42.3 % (37-47); Hemoglobin 13.7 g/dL (12.0-15.0); Lymphocyte # 1.06 X10^3/ul (0.83-4.51); Lymphocyte % 10.9 % (19-41); Mean Corp Hgb Conc 32.4 g/dL (32-36); Mean Corpuscular Hgb 28.7 pg (27.0-32.0); Mean Corpuscular Volume 88.5 fL (81-99); Mean Platelet Vol. 10.1 fl (6.2-12.0); Monocyte# 0.14 X10^3/uL; Monocyte% 1.4 % (0-10); NRBC Flagged by Analyzer 0 % (0-5); Neutrophil # 8.39 X10^3/uL (2.7-7.7); Neutrophil % 86.6 % (47-70); Platelet Count 216 K/mm3 (150-450); RBC Distribution Width CV 14.6 % (11.6-14.6); RBC Distribution Width SD 46.2 fl (35.1-43.9); Red Blood Count 4.78 M/mm3 (4.2-5.4); White Blood Count 9.7 K/mm3 (4.4-11.0)
[2024-02-05 17:09] LABS: Ferritin 27 ng/mL (8-252); Iron 41 ug/dL (50-170); Iron Binding Capacity,Total 418 ug/dL (250-450); PERCENT IRON SATURATION 9.8 % (15.0-55.0)
== END | disposition home or self-care (01) ==
LOC: LAB 15:40
PROVIDERS: PCP Nurse Practitioner Family; Referring Provider Nurse Practitioner Acute Care; Visit Provider Nurse Practitioner Acute Care
DX: R19.7 Diarrhea, unspecified (principal); R11.2 Nausea with vomiting, unspecified; R15.9 Full incontinence of feces
CPT/HCPCS: 36415; 82728; 83540; 83550; 85025

== ENCOUNTER → 2024-02-17 | Outpatient (CLI) | payer OTHER, SELFPAY ==
[2024-02-18 15:07] LABS: H. PYLORI STOOL AG Negative (Negative)
[2024-02-20 08:07] LABS: Calprotectin, Stool 15 ug/g (0-120)
== END | disposition home or self-care (01) ==
LOC: LAB 06:43 → LABSPEC 06:43
PROVIDERS: PCP Nurse Practitioner Family; Referring Provider Nurse Practitioner Acute Care; Visit Provider Nurse Practitioner Acute Care
DX: K58.0 Irritable bowel syndrome with diarrhea (principal); R11.2 Nausea with vomiting, unspecified; R15.9 Full incontinence of feces
CPT/HCPCS: 83993; 87177; 87209; 87338; 87506

== ENCOUNTER 2024-02-21 05:10 | Day surgery (SDC) | payer OTHER, SELFPAY ==
--- NOTE | 2024-02-17 17:07 | PAT.ANESEVAL ---
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 When Was Last Pacemaker Check QUESTION #4 FULL TEXT: You/Your Family Experience fever (hyperthermia) with Anesthesia Last Oral Intake Last Oral intake: Last Oral Intake NPO since Meds taken in AM with sips of water? Meds patient instructed to take am of surgery PONV PONV - production tech: PONV - production tech Female Yes 02/17/24 09:12 HX of Motion Sickness No 02/17/24 09:12 HX of N/V After Surgery No 02/17/24 09:12 Non-Smoker Yes 02/17/24 09:12 Duration of Surgery greater No 02/17/24 09:12 than 60 minutes Number of Risk Factors 2 02/17/24 09:12 PONV Score Moderate Risk 02/17/24 09:12 Height & Weight Height & Weight: Anesthesia: Height & Weight Height 5 ft 4 in 02/05/24 14:38 Respiratory Assessment Respiratory Assessment - production tech: Respiratory Tract Infection Hx - production tech Hx Respiratory Tract Infection No 02/17/24 09:12 STOP Sleep Apnea STOP Sleep Apnea - production tech: STOP Sleep Apnea - production tech Hx Hypertension Yes: CONTROLLED WITH MED 02/17/24 09:12 Hx Sleep Apnea Yes 02/17/24 09:12 CPAP No 02/17/24 09:12 BIPAP Yes 02/17/24 09:12 Do you snore loudly (louder than talking or can be heard Do you often feel tired/ fatigued/ sleepy during daytime? Has anyone observed you stop breathing during sleep? STOP Results Positive 02/17/24 09:12 QUESTION #5 FULL TEXT : Do you snore loudly (louder than talking or can be heard through closed doors)? 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 Specify any problems Hx of Preganancy in last 3 No 02/17/24 09:12 Months Nurse Filling Out Transfusion VCHRISTIN 02/17/24 09:12 & Questions: Date: 02/17/24 02/17/24 09:12 Time: 09:14 02/17/24 09:12 Patient unable to answer at this time (ie. confused, unrespo /Reproduction History /Reproductive History - production tech: /Reproductive Hx- production tech Hx Now Gestational Age (in weeks): EDC: Hx Hx Para Hx Section SAB PFSH Medical History (Updated 02/17/24 @ 09:12 by Juana Green) GERD (gastroesophageal reflux disease) Reflux esophagitis Kidney stones High cholesterol Generalized headaches Gout IBS (irritable bowel syndrome) Back problem Wears glasses Post-menopausal CAD (coronary artery disease) Anemia Back pain Migraine headache Syncope Dietary restriction History of IBS Former smoker Shortness of breath on exertion BiPAP (biphasic positive airway pressure) dependence History of echocardiogram History of stress test Cardiology follow-up encounter History of heart attack Hypercholesteremia Diabetes Hypertension Stroke/cerebrovascular accident Home Medications ?Medication ?Instructions ?Recorded ?Last Taken ?Type aspirin 81 mg tablet,delayed 81 mg PO DAILY@0800 HEART 02/24/15 04/29/23 History release metoprolol tartrate 100 mg tablet 100 mg PO DAILY HEART 02/24/15 04/29/23 History meclizine 25 mg tablet 25 mg PO TID PRN dizziness or 04/02/23 Unknown Rx vertigo #20 tabs allopurinol 300 mg tablet 300 mg PO DAILY GOUT 04/17/23 04/28/23 History clopidogrel 75 mg tablet 75 mg PO DAILY CAD 04/17/23 04/29/23 History dicyclomine 20 mg tablet 20 mg PO PRN PRN IBS 04/17/23 04/28/23 History atorvastatin 80 mg tablet 80 mg PO QHS Cholesterol 04/29/23 04/28/23 History glipizide 5 mg tablet, extended 5 mg PO DAILY diabetes 04/29/23 04/28/23 History release 24 hr pramipexole 0.125 mg tablet 0.125 mg PO QDAY 09/05/23 Unknown History cilostazol 50 mg tablet 50 mg PO BID #60 tabs 12/03/23 Unknown Rx lisinopril 20 mg tablet 20 mg PO QDAY 02/05/24 Unknown History nitroglycerin 0.4 mg sublingual 0.4 mg sublingual Q5M PRN chest 02/05/24 Unknown History tablet pain ondansetron 8 mg disintegrating 8 mg PO Q8H PRN nausea and vomiting 02/05/24 Unknown History tablet tirzepatide 7.5 mg/0.5 mL 7.5 mg subcut QWEEK 02/05/24 02/14/24 History subcutaneous pen injector (Mounjaro) Allergy/AdvReac Type Severity Reaction Status Date / Time No Known Allergies Allergy Verified 02/17/24 09:05 Family History Other Asthma Breast cancer CAD (coronary artery disease) Cancer Cervical cancer Colon cancer Heart disease Kidney disease Myocardial infarction Ovarian cancer Surgical History History of left-sided carotid endarterectomy History of cardiac catheterization Hx of tonsillectomy Hx of hysterectomy History of coronary artery stent placement Social History Smoking Status: Former smoker how long ago did patient quit smokin yrs alcohol intake: never substance use type: does not use Audit: Pertinent Findings Pertinent Findings EKG Perinent findings: 04/03/2023 sinus tachycardia at 119 bpm cannot rule out inferior infarct age undetermined poor R wave progression Consult pertinent findings: [facility] 02/13/2024 preoperative clearance stress test - July 2023 low risk procedure EKG done today normal sinus rhythm at 92 low voltage QRS status post PCI RCA and left circumflex 2013 2017 hypertension status post CEA of left ICA carotid no further workup recommended Recommendation Anesthesia Recommendation Anesthesia recommendation: OPTIMIZED for anesthesia
[2024-02-21] VITALS (8 sets, daily range): BP systolic 81–170; BP diastolic 50–97; PULSE 84–97; RESP 14–18; TEMP 36.3–37.4; O2SAT 94–98; BMI 33.5
[2024-02-21 06:19] LABS: Bedside Glucose 180 mg/dL (74-106)
--- NOTE | 2024-02-21 06:30 | IMM_PTH ---
PATIENT: DANYELLE GRANDE LOC: EN U#:[id number] AGE/SX: 63/F ROOM: RE02/21/[address]: Dr. Thor Galdamez DO : 1960 BED: DIS: 02/21/2024 SPEC #: [id number] RECD: 02/21/24 10:41 STATUS: ÁNGELA REQ #: [id number] ARNIE: 02/21/24 06:[address]: Thor Galdamez DEPT: IMMUNOHISTOCHEMISTRY RECD BY: Gasper Davis ENTERED: 02/21/24 10:42 SP TYPE: IMMUNO OTHR DR: Vee Singletary, PLASTIC SHEETING CUTTER-C Tissues: B - Gastric mucous membrane Procedures: H Pylori (initial) PHYSICIAN & INSTITUTION [place] [id number] SPECIMEN INFORMATION: Tissue Source: B- Gastric body biopsy Clinical Info: Diarrhea, nausea/vomiting, fecal incontinence Specimen Number: [id number] CPT code: 94453 METHODOLOGY: Deparaffinized sections of prefer/formalin-fixed tissue or PAP/DQ stained slides are incubated with monoclonal/polyclonal antibodies/oligonucleotide probes. Localization is made via biotin free immunoperoxidase method. Appropriate controls are performed and reacted as expected. Results on target cell population are indicated in the following table: RESULTS: ANTIBODY / CLONE RESULT Block B H Pylori (polyclonal) negative These tests were developed and their performance characteristics determined by [facility]. They may not have been cleared or approved by the [place]. Food and Drug Administration. The FDA has determined that such clearance or approval is not necessary. The above immunohistochemical/dualISH markers are ordered and reviewed by the Pathologist. INTERPRETATION: B. Gastric body, biopsy: Negative for Helicobacter pylori organisms. 02/24/2024
--- NOTE | 2024-02-21 06:30 | EGD_PTH ---
PATIENT: DANYELLE GRANDE LOC: EN U#:[id number] AGE/SX: 63/F ROOM: RE02/21/[address]: Dr. Thor Galdamez DO : 1960 BED: DIS: 02/21/2024 SPEC #: [id number] RECD: 02/21/24 08:37 STATUS: ÁNGELA GHULAM #: [id number] ARNIE: 02/21/24 06:[address]: Thor Galdamez DEPT: SURGICAL PATHOLOGY RECD BY: Hattie Back ENTERED: 02/21/24 09:53 SP TYPE: EGD BIOPSY OT DR: Vee Singletary, CUSTOMER SERVICE SECURITY OFFICER-C Tissues: A - Duodenum, NOS B - Gastric mucous membrane C - Esophagus, NOS D - Ileum, NOS E - COLON BIOPSY Procedures: Surgery Specimen Level IV HEADER OPERATION: Colonoscopy with biopsy, EGD with biopsy PRE-OP DIAGNOSIS: Diarrhea, nausea/vomiting, fecal incontinence TISSUE SUBMITTED: A- Duodenum biopsy, B- Gastric body biopsy, C- Distal esophagus biopsy,D- Terminal ileum biopsy, E- Random colon biopsy MICROSCOPIC DIAGNOSIS A. Duodenum, biopsy: A fragment of duodenal mucosa with focal villous blunting. B. Gastric body, biopsy: Mild gastritis. See microscopic description and comment. C. Distal esophagus, biopsy: Fragments of benign squamous epithelium. D. Terminal ileum, biopsy: Fragments of small intestinal mucosa, no pathologic diagnosis. E. Colon, random biopsy: Fragments of colonic mucosa, no pathologic diagnosis. 02/24/2024 COMMENT B. The results of immunohistochemistry for Helicobacter pylori will be reported separately ([id number]). MICROSCOPIC DESCRIPTION Slides are reviewed. B. The specimen shows fragments of gastric mucosa with chronic inflammatory cell infiltrates in the lamina propria consisting of lymphocytes and plasma cells, consistent with mild chronic gastritis. GROSS DESCRIPTION A. Received in fixative is one container labeled with the patient's name and designated Duodenum biopsy. The specimen consists of one irregular fragment of light amato soft tissue that measures 0.5 x 0.2 x 0.1 cm. The specimen is totally submitted in one cassette. B. Received in fixative is one container labeled with the patient's name and designated Gastric body biopsy. The specimen consists of one irregular fragment of light amato soft tissue that measures 0.5 x 0.3 x 0.1 cm. The specimen is totally submitted in one cassette. C. Received in fixative is one container labeled with the patient's name and designated Distal esophagus biopsy. The specimen consists of two irregular fragments of light amato soft tissue that in aggregate measure 0.5 x 0.2 x 0.1 cm. The specimen is totally submitted in one cassette. D. Received in fixative is one container labeled with the patient's name and designated Terminal ileum biopsy. The specimen consists of two irregular fragments of light amato soft tissue that in aggregate measure 0.9 x 0.3 x 0.1 cm. The specimen is totally submitted in one cassette. E. Received in fixative is one container labeled with the patient's name and designated Random colon biopsy. The specimen consists of multiple irregular fragments of light amato soft tissue that in aggregate measure 1.2 x 0.4 x 0.1 cm. The specimen is totally submitted in one cassette. 02/21/2024 TC:3 CPT:67141k1
--- NOTE | 2024-02-21 06:39 | PCM.PRE.AN2 ---
ASA Classification* ASA Classification ASA Classification: 3 Assessment & Plan Anesthesia* Anesthesia Assessment Anesthesia Assessment: Discussed sedation and/or anesthesia options, risks, benefits, and alternatives with patient/parents/legal guardian/POA. Questions invited. The patient/parents/legal guardian/POA seems to understand and agrees to proceed with anesthesia plan. Reviewed the physical assessment, medical history, allergy history and patient home medications list prior to surgery/procedure/anesthetic and documented any changes. Performed airway and anesthesia risk assessments. Anesthesia Type Anesthesia Type: MAC Anesthesia Focused Assessment* Temperature: 99.3 F Pulse Rate: 97 Blood Pressure: 170/97 Respiratory Rate: 16 Pulse Ox: 98 Airway Assessment Mouth opens: >3 cm Mallampati Score: II Focused Labs Anesthesia Preop lab: CBC WBC 9.7 K/mm3 (4.4-11.0) 02/05/24 15:42 RBC 4.78 M/mm3 (4.2-5.4) 02/05/24 15:42 Hgb 13.7 g/dL (12.0-15.0) 02/05/24 15:42 Hct 42.3 % (37-47) 02/05/24 15:42 Plt Count 216 K/mm3 (150-450) 02/05/24 15:42 CHEMISTRY Potassium 4.6 mmol/L (3.5-5.1) 04/02/23 14:25 Sodium 143 mmol/L (136-145) 04/02/23 14:25 BUN 16 mg/dL (7-18) 04/02/23 14:25 Creatinine 1.01 mg/dL (0.55-1.02) 04/02/23 14:25 Glucose 204 mg/dL (74-106) H 04/02/23 14:25 POC Glucose 180 mg/dL (74-106) H 02/21/24 05:59 COAG Pre-Assessment Diagnosis/Proposed Procedure Planned Operative Procedure(s): COLONOSCOPY/EGD Anesthesia History Anesthesia History - potato chip cooker machine: Anesthesia History - potato chip cooker machine Hx Hospitalization Yes: 03/27/2023 STROKE, 02/17/24 09:12 2023 L CAROTID Any Problems With Anesthesia No 02/17/24 09:12 Cholinesterase deficiency No 02/17/24 09:12 You/Your Family Experience No 02/17/24 09:12 fever (hyperthermia) with Relationship Recent Exposure to Contagious No 02/21/24 05:49 Disease Does patient have nerve No 02/17/24 09:12 stimulator Patient instructed to have device shut off --Does patient have Pacemaker No 02/21/24 05:49 or ICD? When Was Last Pacemaker Check QUESTION #4 FULL TEXT: You/Your Family Experience fever (hyperthermia) with Anesthesia Last Oral Intake Last Oral intake: Last Oral Intake NPO since Meds taken in AM with sips of water? Meds patient instructed to take am of surgery PONV PONV - potato chip cooker machine: PONV - potato chip cooker machine Female Yes 02/17/24 09:12 HX of Motion Sickness No 02/17/24 09:12 HX of N/V After Surgery No 02/17/24 09:12 Non-Smoker Yes 02/17/24 09:12 Duration of Surgery greater No 02/17/24 09:12 than 60 minutes Number of Risk Factors 2 02/17/24 09:12 PONV Score Moderate Risk 02/17/24 09:12 Height & Weight Height & Weight: Anesthesia: Height & Weight Height 5 ft 3 in 02/21/24 05:49 Weight: 85.7 kg 02/21/24 05:49 Body Mass Index (BMI) 33.5 02/21/24 05:49 Respiratory Assessment Respiratory Assessment - potato chip cooker machine: Respiratory Tract Infection Hx - potato chip cooker machine Hx Respiratory Tract Infection No 02/17/24 09:12 STOP Sleep Apnea STOP Sleep Apnea - potato chip cooker machine: STOP Sleep Apnea - potato chip cooker machine Hx Hypertension Yes: CONTROLLED WITH MED 02/17/24 09:12 Hx Sleep Apnea Yes 02/17/24 09:12 CPAP No 02/17/24 09:12 BIPAP Yes 02/17/24 09:12 Do you snore loudly (louder than talking or can be heard Do you often feel tired/ fatigued/ sleepy during daytime? Has anyone observed you stop breathing during sleep? STOP Results Positive 02/17/24 09:12 QUESTION #5 FULL TEXT : Do you snore loudly (louder than talking or can be heard through closed doors)? 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 Specify any problems Hx of Preganancy in last 3 No 02/17/24 09:12 Months Nurse Filling Out Transfusion VCHRISTIN 02/17/24 09:12 & Questions: Date: 02/17/24 02/17/24 09:12 Time: 09:14 02/17/24 09:12 Patient unable to answer at this time (ie. confused, unrespo /Reproduction History /Reproductive History - potato chip cooker machine: /Reproductive Hx- potato chip cooker machine Hx Now Gestational Age (in weeks): EDC: Hx Hx Para Hx Section SAB PFSH Medical History GERD (gastroesophageal reflux disease) Reflux esophagitis Kidney stones High cholesterol Generalized headaches Gout IBS (irritable bowel syndrome) Back problem Wears glasses Post-menopausal CAD (coronary artery disease) Anemia Back pain Migraine headache Syncope Dietary restriction History of IBS Former smoker Shortness of breath on exertion BiPAP (biphasic positive airway pressure) dependence History of echocardiogram History of stress test Cardiology follow-up encounter History of heart attack Hypercholesteremia Diabetes Hypertension Stroke/cerebrovascular accident Home Medications ?Medication ?Instructions ?Recorded ?Last Taken ?Type aspirin 81 mg tablet,delayed 81 mg PO DAILY@0800 HEART 02/24/15 02/16/24 History release metoprolol tartrate 100 mg tablet 100 mg PO DAILY HEART 02/24/15 02/21/24 History meclizine 25 mg tablet 25 mg PO TID PRN dizziness or 04/02/23 Unknown Rx vertigo #20 tabs allopurinol 300 mg tablet 300 mg PO DAILY GOUT 04/17/23 04/28/23 History clopidogrel 75 mg tablet 75 mg PO DAILY CAD 04/17/23 02/16/24 History dicyclomine 20 mg tablet 20 mg PO PRN PRN IBS 04/17/23 04/28/23 History atorvastatin 80 mg tablet 80 mg PO QHS Cholesterol 04/29/23 04/28/23 History glipizide 5 mg tablet, extended 5 mg PO DAILY diabetes 04/29/23 04/28/23 History release 24 hr pramipexole 0.125 mg tablet 0.125 mg PO QDAY 09/05/23 Unknown History cilostazol 50 mg tablet 50 mg PO BID #60 tabs 12/03/23 Unknown Rx lisinopril 20 mg tablet 20 mg PO QDAY 02/05/24 Unknown History nitroglycerin 0.4 mg sublingual 0.4 mg sublingual Q5M PRN chest 02/05/24 Unknown History tablet pain ondansetron 8 mg disintegrating 8 mg PO Q8H PRN nausea and vomiting 02/05/24 Unknown History tablet tirzepatide 7.5 mg/0.5 mL 7.5 mg subcut QWEEK 02/05/24 02/14/24 History subcutaneous pen injector (Mounjaro) Allergy/AdvReac Type Severity Reaction Status Date / Time No Known Allergies Allergy Verified 02/21/24 05:49 Family History Other Asthma Breast cancer CAD (coronary artery disease) Cancer Cervical cancer Colon cancer Heart disease Kidney disease Myocardial infarction Ovarian cancer Surgical History History of left-sided carotid endarterectomy History of cardiac catheterization Hx of tonsillectomy Hx of hysterectomy History of coronary artery stent placement Social History Smoking Status: Former smoker how long ago did patient quit smokin yrs alcohol intake: never substance use type: does not use Review of Systems (Anesthesia) ROS Narrative System reviewed and no additional complaints, except as documented.
--- NOTE | 2024-02-21 06:47 | HP.PCM_ITS ---
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 scared to have an accident - symptoms started 1 month ago with watery diarrhea - no control - does not matter what she eats it just goes right through her - can settle down for a couple of days and then kicks back up - she is trying to stick to a bland diet - diarrhea wakes her in middle of the night - weight loss of 4lbs - denies any bleeding - vomiting can be clear liquid or food - she is on an ATB presently for bronchitis - prior to now denies any ATB in the past 6 months - denies any travel - denies any sick contact - denies any prior colonoscopy - she is diabetic x8 years - c/o nausea - denies any new medications or dose changes - she does experience HB - manages with Tums CCX 7-8 years ago - has not had issues with diarrhea post CCX COUNTS INCLUDE 234 BEDS AT THE [facility] Medical History GERD (gastroesophageal reflux disease) Reflux esophagitis Kidney stones High cholesterol Generalized headaches Gout IBS (irritable bowel syndrome) Back problem Wears glasses Post-menopausal CAD (coronary artery disease) Anemia Back pain Migraine headache Syncope Dietary restriction History of IBS Former smoker Shortness of breath on exertion BiPAP (biphasic positive airway pressure) dependence History of echocardiogram History of stress test Cardiology follow-up encounter History of heart attack Hypercholesteremia Diabetes Hypertension Stroke/cerebrovascular accident Home Medications ?Medication ?Instructions ?Recorded ?Last Taken ?Type aspirin 81 mg tablet,delayed 81 mg PO DAILY@0800 HEART 02/24/15 02/16/24 History release metoprolol tartrate 100 mg tablet 100 mg PO DAILY HEART 02/24/15 02/21/24 History meclizine 25 mg tablet 25 mg PO TID PRN dizziness or 04/02/23 Unknown Rx vertigo #20 tabs allopurinol 300 mg tablet 300 mg PO DAILY GOUT 04/17/23 04/28/23 History clopidogrel 75 mg tablet 75 mg PO DAILY CAD 04/17/23 02/16/24 History dicyclomine 20 mg tablet 20 mg PO PRN PRN IBS 04/17/23 04/28/23 History atorvastatin 80 mg tablet 80 mg PO QHS Cholesterol 04/29/23 04/28/23 History glipizide 5 mg tablet, extended 5 mg PO DAILY diabetes 04/29/23 04/28/23 History release 24 hr pramipexole 0.125 mg tablet 0.125 mg PO QDAY 09/05/23 Unknown History cilostazol 50 mg tablet 50 mg PO BID #60 tabs 12/03/23 Unknown Rx lisinopril 20 mg tablet 20 mg PO QDAY 02/05/24 Unknown History nitroglycerin 0.4 mg sublingual 0.4 mg sublingual Q5M PRN chest 02/05/24 Unknown History tablet pain ondansetron 8 mg disintegrating 8 mg PO Q8H PRN nausea and vomiting 02/05/24 Unknown History tablet tirzepatide 7.5 mg/0.5 mL 7.5 mg subcut QWEEK 02/05/24 02/14/24 History subcutaneous pen injector (Mounjaro) Allergy/AdvReac Type Severity Reaction Status Date / Time No Known Allergies Allergy Verified 02/21/24 05:49 Family History Other Asthma Breast cancer CAD (coronary artery disease) Cancer Cervical cancer Colon cancer Heart disease Kidney disease Myocardial infarction Ovarian cancer Surgical History History of left-sided carotid endarterectomy History of cardiac catheterization Hx of tonsillectomy Hx of hysterectomy History of coronary artery stent placement Social History Smoking Status: Former smoker how long ago did patient quit smokin yrs alcohol intake: never substance use type: does not use ROS Constitutional Constitutional: Denies fatigue, fever(s), poor appetite, weight gain or weight loss Gastrointestinal Gastrointestinal: Denies belching, bloating, change in bowel habits, change in stool character, chewing difficulty, coffee ground emesis, constipation, cramping, diarrhea, dyspepsia, dysphagia, early satiety, excessive flatus, fecal incontinence, heartburn, hematemesis, hematochezia, hemorrhoids, loose stools, melena, nausea, odynophagia, rectal bleeding, tenesmus, vomiting or weight changes Vital Signs Vital Signs Vital Signs: 02/21/24 05:49 02/21/24 05:49 02/21/24 06:40 Temperature 99.3 F H 99.3 F H Temperature Source Temporal Pulse Rate 97 97 Respiratory Rate 16 16 Respiratory Pattern Normal Blood Pressure 170/97 H 170/97 H Blood Pressure Mean 121 Blood Pressure Source Monitor Blood Pressure Position Semi-Fowlers Blood Pressure Location Left Arm Pulse Ox 98 98 Oxygen Delivery Method Room Air Weight Weight: 188 lb 14.978 oz Body Mass Index (BMI) 33.5 Physical Exam Const alert, oriented x3, no apparent distress and healthy appearing General Appearance: cooperative GI normal to inspection, nondistended, normoactive bowel sounds, soft to palpation, non-tender and non-distended Percussion: normal to percussion Rectal Exam: deferred Results Lab / Micro Data Labs: Laboratory Results - last 24 hr 02/21/24 05:59: POC Glucose 180 H Assessment & Plan Assessment/Plan (1) Fecal incontinence: (2) Nausea & vomiting: (3) Diarrhea: PLAN: Plan Assessment and Plan Assessment and Plan (1) Diarrhea: Status: Acute (2) Nausea & vomiting: Status: Acute (3) Fecal incontinence: Status: Acute Orders: Orders Calprotectin, Stool Today R11.2 - Nausea with vomiting, unspecified, R15.9 - Full incontinence of feces, R19.7 - Diarrhea, unspecified ENTERIC PATHOGEN PANEL STOOL Today K58.9 - Irritable bowel syndrome, unspecified, R11.2 - Nausea with vomiting, unspecified, R15.9 - Full incontinence of feces, R19.7 - Diarrhea, unspecified Ova and Parasites 8623 Today K58.9 - Irritable bowel syndrome, unspecified, R11.2 - Nausea with vomiting, unspecified, R15.9 - Full incontinence of feces, R19.7 - Diarrhea, unspecified CBC W/Diff, Automated Today R11.2 - Nausea with vomiting, unspecified, R15.9 - Full incontinence of feces, R19.7 - Diarrhea, unspecified H. PYLORI STOOL AG Today R11.2 - Nausea with vomiting, unspecified, R15.9 - Full incontinence of feces, R19.7 - Diarrhea, unspecified Colonoscopy Today R11.2 - Nausea with vomiting, unspecified, R15.9 - Full incontinence of feces, R19.7 - Diarrhea, unspecified EGD 1 Month R11.2 - Nausea with vomiting, unspecified, R15.9 - Full incontinence of feces, R19.7 - Diarrhea, unspecified Ferritin Today R11.2 - Nausea with vomiting, unspecified, R15.9 - Full incontinence of feces, R19.7 - Diarrhea, unspecified Plan 63y/o female presents for consultation with complaints of vomiting and diarrhea for the past month. She reports a long history of IBS. PMH is significant for DM, [place] 2012 with stenting in 2012 and 2016, CVA s/p left CEA 04/29/2023 on cilostazol and clopidogrel. Family history significant for mom with colon cancer in her 40's. Diarrhea is frequent, urgent and she is experiencing incontinence as well as nocturnal stools. She denies any new medications or dietary changes prior to the onset of symptoms. Nausea is persistent with intermittent emesis and heartburn. I have ordered labs, stool testing and scheduled her for a colonoscopy and EGD. She will start Metamucil and probiotic daily with Imodium prn. Patient Instructions: Start a daily probiotic: Parish Montaño or Cloudvu Start Metamucil 2tsp once a day in 8 ounces of water Imodium as needed Follow-up in office 3 weeks after procedure is completed Off work note provided for remainder of the week Plan Details Follow Up: 6 Weeks
--- NOTE | 2024-02-21 07:26 | PCM.POST.ANE ---
Anesthesia: Postop Eval I Current Vital Signs Temperature: 97.3 F Pulse Rate: 89 Blood Pressure: 81/51 Respiratory Rate: 16 Pulse Ox: 97 Oxygen Delivery Method: Room Air Assessment Airway patent: Yes Spontaneous unlabored respirations: Yes Mental status: Awake and Calm nausea: No Vomiting: No Anesthesia Complication: No Fluid Hydration Crystalloid volume administer (ml): 75 Total IV fluid infused: 75 Progress Note Anesthesia document: Postop Eval 1 completed: Yes
--- NOTE | 2024-02-21 07:27 | OP.EGD_ITS ---
Patient Name: Kyra Roman Procedure Date: 02/21/2024 6:18 AM Date of : 1960 Age: 63 Procedure: Upper GI endoscopy Indications: Epigastric abdominal pain Providers: Thor Galdamez DO Referring MD: Tano Tidwell Medicines: Monitored Anesthesia Care Patient Profile: This is a 63 year old female. Refer to note in patient chart for documentation of history and physical. Patient has symptoms of acute abdominal cramping, acute abdominal distention, acute nausea, chronic nausea and acute vomiting. Complications: No immediate complications. Procedure: Pre-Anesthesia Assessment: - Prior to the procedure, a History and Physical was performed, and patient medications and allergies were reviewed. The patient is competent. The risks and benefits of the procedure and the sedation options and risks were discussed with the patient. All questions were answered and informed consent was obtained. Patient identification and proposed procedure were verified by the physician in the pre-procedure area. Mental Status Examination: alert and oriented. Airway Examination: normal oropharyngeal airway and neck mobility. Respiratory Examination: clear to auscultation. CV Examination: normal. Prophylactic Antibiotics: The patient does not require prophylactic antibiotics. Prior Anticoagulants: The patient has taken no anticoagulant or antiplatelet agents except for NSAID medication. ASA Grade Assessment: II - A patient with mild systemic disease. After reviewing the risks and benefits, the patient was deemed in satisfactory condition to undergo the procedure. The anesthesia plan was to use monitored anesthesia care (MAC). Immediately prior to administration of medications, the patient was re-assessed for adequacy to receive sedatives. The heart rate, respiratory rate, oxygen saturations, blood pressure, adequacy of pulmonary ventilation, and response to care were monitored throughout the procedure. The physical status of the patient was re-assessed after the procedure. After obtaining informed consent, the endoscope was passed under direct vision. Throughout the procedure, the patient's blood pressure, pulse, and oxygen saturations were monitored continuously. The Colonoscope was introduced through the mouth, and advanced to the second part of duodenum. The upper GI endoscopy was accomplished without difficulty. The patient tolerated the procedure well. Scope In: 6:57:26 AM Scope Out: 7:01:02 AM Total Procedure Duration Time 0 hours 3 minutes 36 seconds Findings: LA Grade B (one or more mucosal breaks greater than 5 mm, not extending between the tops of two mucosal folds) esophagitis with no bleeding was found 38 to 40 cm from the incisors. Biopsies were taken with a cold forceps for histology. Verification of patient identification for the specimen was done. Estimated blood loss was minimal. A small hiatal hernia was present. Patchy mildly erythematous mucosa without bleeding was found in the cardia and in the gastric body. Biopsies were taken with a cold forceps for histology. Verification of patient identification for the specimen was done. Biopsies were taken with a cold forceps for Helicobacter pylori testing. Verification of patient identification for the specimen was done. Estimated blood loss was minimal. Suspect gastroparesis due to absence of peristalsis and patient symptoms. No gross lesions were noted in the duodenal bulb. Biopsies were taken with a cold forceps for histology. Verification of patient identification for the specimen was done. Estimated blood loss was minimal. Impression: - LA Grade B erosive esophagitis with no bleeding. Biopsied. - Small hiatal hernia. - Erythematous mucosa in the cardia and gastric body. Biopsied. - Gastroparesis, secondary to drug side effect. - No gross lesions in the duodenal bulb. Biopsied. Recommendation: - Discharge patient to home. - Resume previous diet. - Continue present medications. - Await pathology results. Procedure Code(s): --- Professional --- 30856, Esophagogastroduodenoscopy, flexible, transoral; with biopsy, single or multiple CPT copyright 2021 [employer]. All rights reserved. The codes documented in this report are preliminary and upon utilization reviewer review may be revised to meet current compliance requirements. Thor Galdamez DO 02/21/2024 7:26:31 AM This report has been signed electronically. Number of Addenda: 0 Note Initiated On: 02/21/2024 6:18 AM
--- NOTE | 2024-02-21 07:27 | OP.CCLET_ITS ---
02/21/2024 Tano Tidwell Re : Upper GI endoscopy procedure for Kyra Roman Dear Hayder This procedure was performed on Wednesday, February 21, 2024. My impressions and recommendations are as follows: Impressions : - LA Grade B erosive esophagitis with no bleeding. Biopsied. - Small hiatal hernia. - Erythematous mucosa in the cardia and gastric body. Biopsied. - Gastroparesis, secondary to drug side effect. - No gross lesions in the duodenal bulb. Biopsied. Recommendations : - Discharge patient to home. - Resume previous diet. - Continue present medications. - Await pathology results. My findings are described in the full procedure note, which is enclosed. If I can be of further assistance, please feel free to contact me at . Sincerely, Thor Galdamez, 02/21/2024 7:26:31 AM This report has been signed electronically.
--- NOTE | 2024-02-21 07:30 | OP.COLON_ITS ---
Patient Name: Kyra Roman Procedure Date: 02/21/2024 7:01 AM Date of : 1960 Age: 63 Procedure: Colonoscopy Indications: Clinically significant diarrhea of unexplained origin Providers: Thor Galdamez DO Referring MD: Tano Tidwell Medicines: Monitored Anesthesia Care Patient Profile: This is a 63 year old female. Refer to note in patient chart for documentation of history and physical. Patient has symptoms of acute abdominal cramping, acute abdominal distention, acute nausea, chronic nausea and acute vomiting. Last Colonoscopy: more than 10 years ago. Complications: No immediate complications. Procedure: Pre-Anesthesia Assessment: - Prior to the procedure, a History and Physical was performed, and patient medications and allergies were reviewed. The patient is competent. The risks and benefits of the procedure and the sedation options and risks were discussed with the patient. All questions were answered and informed consent was obtained. Patient identification and proposed procedure were verified by the physician in the pre-procedure area. Mental Status Examination: alert and oriented. Airway Examination: normal oropharyngeal airway and neck mobility. Respiratory Examination: clear to auscultation. CV Examination: normal. Prophylactic Antibiotics: The patient does not require prophylactic antibiotics. Prior Anticoagulants: The patient has taken no anticoagulant or antiplatelet agents except for NSAID medication. ASA Grade Assessment: II - A patient with mild systemic disease. After reviewing the risks and benefits, the patient was deemed in satisfactory condition to undergo the procedure. The anesthesia plan was to use monitored anesthesia care (MAC). Immediately prior to administration of medications, the patient was re-assessed for adequacy to receive sedatives. The heart rate, respiratory rate, oxygen saturations, blood pressure, adequacy of pulmonary ventilation, and response to care were monitored throughout the procedure. The physical status of the patient was re-assessed after the procedure. After I obtained informed consent, the scope was passed under direct vision. Throughout the procedure, the patient's blood pressure, pulse, and oxygen saturations were monitored continuously. The Colonoscope was introduced through the anus and advanced to the terminal ileum. The colonoscopy was performed without difficulty. The patient tolerated the procedure well. The quality of the bowel preparation was fair. The terminal ileum, ileocecal valve, appendiceal orifice, and rectum were photographed. Scope In: 7:02:12 AM Scope Withdrawal Time 0 hours 11 minutes 19 seconds Scope Out: 7:16:18 AM Total Procedure Duration Time 0 hours 14 minutes 6 seconds Findings: The perianal and digital rectal examinations were normal. Stool was found in the rectum, in the recto-sigmoid colon, in the sigmoid colon, in the transverse colon and in the ascending colon. An area of mildly congested mucosa was found in the recto-sigmoid colon, in the sigmoid colon and in the descending colon. Biopsies were taken with a cold forceps for histology. Verification of patient identification for the specimen was done. Estimated blood loss was minimal. A patchy area of the distal ileum and terminal ileum was congested. Biopsies were taken with a cold forceps for histology. Verification of patient identification for the specimen was done. Estimated blood loss was minimal. Impression: - Preparation of the colon was fair. - Stool in the rectum, in the recto-sigmoid colon, in the sigmoid colon, in the transverse colon and in the ascending colon. - Congested mucosa in the recto-sigmoid colon, in the sigmoid colon and in the descending colon. Biopsied. - Congested mucosa in the distal ileum and in the terminal ileum. Biopsied. Recommendation: - Patient has a contact number available for emergencies. The signs and symptoms of potential delayed complications were discussed with the patient. Return to normal activities tomorrow. Written discharge instructions were provided to the patient. - Resume previous diet. - Continue present medications. - Await pathology results. - Repeat colonoscopy in 5 years because the bowel preparation was poor and for surveillance. Procedure Code(s): --- Professional --- 91855, Colonoscopy, flexible; with biopsy, single or multiple CPT copyright 2021 [employer]. All rights reserved. The codes documented in this report are preliminary and upon certified orthotist review may be revised to meet current compliance requirements. Thor Galdamez DO 02/21/2024 7:30:10 AM This report has been signed electronically. Number of Addenda: 0 Note Initiated On: 02/21/2024 7:01 AM
--- NOTE | 2024-02-21 07:30 | OP.CCLET_ITS ---
02/21/2024 Tano Tidwell Re : Colonoscopy procedure for Kyra Johnsonr Hayder This procedure was performed on Wednesday, February 21, 2024. My impressions and recommendations are as follows: Impressions : - Preparation of the colon was fair. - Stool in the rectum, in the recto-sigmoid colon, in the sigmoid colon, in the transverse colon and in the ascending colon. - Congested mucosa in the recto-sigmoid colon, in the sigmoid colon and in the descending colon. Biopsied. - Congested mucosa in the distal ileum and in the terminal ileum. Biopsied. Recommendations : - Patient has a contact number available for emergencies. The signs and symptoms of potential delayed complications were discussed with the patient. Return to normal activities tomorrow. Written discharge instructions were provided to the patient. - Resume previous diet. - Continue present medications. - Await pathology results. - Repeat colonoscopy in 5 years because the bowel preparation was poor and for surveillance. My findings are described in the full procedure note, which is enclosed. If I can be of further assistance, please feel free to contact me at . Sincerely, Thor Galdamez, 02/21/2024 7:30:10 AM This report has been signed electronically.
== END 2024-02-21 08:13 | disposition home or self-care (01) ==
LOC: EN 05:11 → AC 05:17
PROVIDERS: PCP Nurse Practitioner Family; Referring Provider Nurse Practitioner Family; Visit Provider Internal Medicine Gastroenterology
PROC: 0DJD8ZZ Inspection of Lower Intestinal Tract, Via Natural or Artificial Opening Endoscopic (ICD-10-PCS; CPT 45378; principal; 2024-02-21 06:25)
DX: K29.70 Gastritis, unspecified, without bleeding (principal); E11.43 Type 2 diabetes mellitus with diabetic autonomic (poly)neuropathy; I25.10 Atherosclerotic heart disease of native coronary artery without angina pectoris; K44.9 Diaphragmatic hernia without obstruction or gangrene; R15.9 Full incontinence of feces; Z80.0 Family history of malignant neoplasm of digestive organs; E78.00 Pure hypercholesterolemia, unspecified; Z87.891 Personal history of nicotine dependence; I10 Essential (primary) hypertension; K31.84 Gastroparesis; Z79.899 Other long term (current) drug therapy; K22.10 Ulcer of esophagus without bleeding; T50.905A Adverse effect of unspecified drugs, medicaments and biological substances, initial encounter; R19.7 Diarrhea, unspecified; K21.9 Gastro-esophageal reflux disease without esophagitis
CPT/HCPCS: 45380; 82962; 88305; 88312; 88342; A4216; J2405

== ENCOUNTER → 2024-03-12 | Outpatient (CLI) | payer OTHER, SELFPAY ==
[2024-03-16 12:07] LABS: Endomysial Antibody IgA Negative (Negative); Immunoglobulin A 238 mg/dL (87-352); t-Transglutaminase IgA <2 U/mL (0-3)
== END | disposition home or self-care (01) ==
PROVIDERS: PCP Nurse Practitioner Family; Referring Provider Nurse Practitioner Acute Care; Visit Provider Nurse Practitioner Acute Care
DX: R11.2 Nausea with vomiting, unspecified (principal); R19.7 Diarrhea, unspecified; D50.9 Iron deficiency anemia, unspecified
CPT/HCPCS: 82784; 83516; 86255

== ENCOUNTER → 2024-07-27 | Outpatient (CLI) | payer OTHER, SELFPAY ==
--- NOTE | 2024-07-27 08:45 | CDU_ITS ---
Reason For Study Reason For Study: S/P Left CEA Rt. Velocities/BP Lt. Velocities/BP Prox CCA 81.4/15.1 cm/sec. Prox CCA 86.3/24.9 cm/sec. Mid CCA 81.4/18.8 cm/sec. Mid CCA 71.6/20 cm/sec. Dist CCA 66.7/17.6 cm/sec. Dist CCA 61.8/18.8 cm/sec. Prox ICA 249.9/72.1 cm/sec. Prox ICA 110.1/24.3 cm/sec. Mid ICA 41/14.6 cm/sec. Mid ICA 60.5/17.6 cm/sec. Dist ICA 50.9/19 cm/sec. Dist ICA 58.1/23.7 cm/sec. Rt. ICA/CCA = 3.07. Lt. ICA/CCA = 1.54. Prox ECA 124.7/7.9 cm/sec. Prox ECA 76.5/12.6 cm/sec. Rt. Vert. 35.5 cm/sec. Lt. Vert. 42.1/11.6 cm/sec. Right Extracranial There is intimal thickening but no significant atherosclerotic plaque noted in the right common carotid artery. There is heterogeneous, irregular atherosclerotic plaque noted in the right internal carotid artery. There is heterogeneous, irregular atherosclerotic plaque noted in the right external carotid artery. Antegrade flow is noted in the right vertebral artery. Left Extracranial There is heterogeneous, irregular atherosclerotic plaque noted in the left common carotid artery. There is intimal thickening but no significant atherosclerotic plaque noted in the left internal carotid artery. The left external carotid artery is not well visualized. Antegrade flow is noted in the left vertebral artery. Procedure Carotid Duplex 94182. This is a Carotid Duplex examination using B-mode, color flow and specral Doppler. Preliminary report given to SARA garcia. Exam performed in department. VL/Carotid Duplex Ultrasound Interpretation Summary Severe (>70%) stenosis right extracranial internal carotid. Normal left extracranial internal carotid. Patent and antegrade vertebrals bilaterally. Ordering Physician: Shasta De Los Santos Referring Physician: Vee Singletary Performed By: Alma Delia Lei RVT
--- OUTSIDE RECORDS SUMMARY | 2024-07-27 09:46 | XMS RPT_ITS | CCD ---
Author Organization [facility] Care Team Providers Care Bar Back Name Role Phone Windy DIRECTOR OF MARKET INTELLIGENCE, DIRECTOR OF MARKET INTELLIGENCE-C Augusto Primary Care Provider 1( [phone] Windy DIRECTOR OF MARKET INTELLIGENCE, DIRECTOR OF MARKET INTELLIGENCE-C Augusto Referring Provider Dr. Reese Aguilar Attending Provider [phone] Reese Aguilar Admit Provider Dr. Reese Aguilar Other Provider FRANCES De Los Santos Attending Provider REMIGIO WILEY MD Attending Unavailable AUGUSTO TEMPLE Primary Care Unavailable REMIGIO WILEY Primary Care Unavailable REMIGIO WILEY Attending Unavailable REMIGIO WILEY Admitting Unavailable AUGUSTO TEMPLE CNP Consulting Unavailable AUGUSTO TEMPLE CNP Referring Unavailable PROVIDER, UNKNOWN Consulting Unavailable PROVIDER, UNKNOWN Consulting Unavailable DANNA MALDONADO MD Primary Care Unavailabl e DANNA MALDONADO MD Attending Unavailabl e AUGUSTO TEMPLE CNP Consulting Unavailable DANNA MALDONADO MD Admitting Unavailabl e PROVIDER, UNKNOWN Consulting Unavailable PROVIDER, UNKNOWN Consulting Unavailable AUGUSTO TEMPLE CNP Primary Care Unavailable AUGUSTO TEMPLE CNP Consulting Unavailable AUGUSTO TEMPLE CNP Attending Unavailable AUGUSTO TEMPLE CNP Admitting Unavailable PROVIDER, UNKNOWN Consulting Unavailable PROVIDER, UNKNOWN Consulting Unavailable SHANAE LAKHANI APRN Primary Care Unavailab SHANAE Arellano APRN Attending Unavailab SHANAE Arellano APRN Admitting Unavailab le AUGUSTO TEMPLE CNP Consulting Unavailable PROVIDER, UNKNOWN Consulting Unavailable PROVIDER, UNKNOWN Consulting Unavailable CURTIS SOOD Primary Care Unavailable CURTIS SOOD Attending Unavailable AUGUSTO TEMPLE CNP Referring Unavailable AUGUSTO TEMPLE CNP Consulting Unavailable CURTIS SOOD Admitting Unavailable PROVIDER, UNKNOWN Consulting Unavailable PROVIDER, UNKNOWN Consulting Unavailable DAVID MERRITT DO Primary Care Unavailable DAVID MERRITT DO Attending Unavailable DAVID MERRITT DO Admitting Unavailable AUGUSTO TEMPLE CNP Consulting Unavailable WINDY, AUGUSTO GUILLAUME Referring Unavailable PROVIDER, UNKNOWN Consulting Unavailable PROVIDER, UNKNOWN Consulting Unavailable WINDY, AUGUSTO GUILLAUME Primary Care Unavailable WINDY, AUGUSTO GUILLAUME Consulting Unavailable WINDY, AUGUSTO GUILLAUME Attending Unavailable AUGUSTO TEMPLE CNP Admitting Unavailable PROVIDER, UNKNOWN Consulting Unavailable PROVIDER, UNKNOWN Consulting Unavailable WINDY BALANCE CLERK-PRODUCT SAFETY ENGINEER, AUGUSTO Patton Primary Care Physicia n DEVAUGHN RUELAS Attending Unavailable WINDY BALANCE CLERK-PRODUCT SAFETY ENGINEER, AUGUSTO Patton Primary Care Unava ilable JHONATHAN DICKSONS, BUCK Blair Consulting Unavailab le De Los Santos, Shasta Referring Unavailable De Los Santos, Shasta Attending Unavailable Windy DIRECTOR OF MARKET INTELLIGENCE, Augsuto Primary Care Unavailable Rony, Shanae Attending Unavailable Rony, Shanae Referring Unavailable Windy DIRECTOR OF MARKET INTELLIGENCE, Augusto Primary Care Unavailable Rony, Shanae Attending Unavailable Rony, Shanae Referring Unavailable Windy DIRECTOR OF MARKET INTELLIGENCE, Augusto Primary Care Unavailable Windy DIRECTOR OF MARKET INTELLIGENCE, Augusto Primary Care Unavailable De Los Santos, Shasta Referring Unavailable De Los Santos, Shasta Attending Unavailable Rony, Shanae Referring Unavailable Rony, Shanae Attending Unavailable Windy DIRECTOR OF MARKET INTELLIGENCE, Augusto Primary Care Unavailable Friend, Thor Attending Unavailable Windy DIRECTOR OF MARKET INTELLIGENCE, Augusto Referring Unavailable Windy DIRECTOR OF MARKET INTELLIGENCE, Augusto Primary Care Unavailable De Los Santos, Shasta Attending Unavailable Windy DIRECTOR OF MARKET INTELLIGENCE, Augusto Primary Care Unavailable De Los Santos, Shasta Attending Unavailable Windy DIRECTOR OF MARKET INTELLIGENCE, Augusto Primary Care Unavailable Windy DIRECTOR OF MARKET INTELLIGENCE, Augusto Referring Unavailable Rony, Shanae Attending Unavailable Windy DIRECTOR OF MARKET INTELLIGENCE, Augusto Referring Unavailable Windy DIRECTOR OF MARKET INTELLIGENCE, Augusto Primary Care Unavailable Windy DIRECTOR OF MARKET INTELLIGENCE, Augusto Primary Care Unavailable De Los Santos, Shasta Referring Unavailable Reese Aguilar Attending Unavailable Friend, Thor Consulting Unavailable Friend, Thor Attending Unavailable Windy DIRECTOR OF MARKET INTELLIGENCE, Augusto Referring Unavailable Windy DIRECTOR OF MARKET INTELLIGENCE, Augusto Primary Care Unavailable Windy DIRECTOR OF MARKET INTELLIGENCE, Augusto Primary Care Unavailable Rony, Shanae Attending Unavailable Windy DIRECTOR OF MARKET INTELLIGENCE, Augusto Referring Unavailable Medications Current Medications Medication Drug Class(es) Dates Sig (Normalized) Sig (Original) 0.5 ML tirzepatide 10 MG/ML Auto-Injector [Tiffanie] (1 source) Start: 01-31-2023 inject 1 dose by subcutaneous injection every week Mounjaro 5 mg/0.5 mL subcutaneous solution Dose : 5 mg =, Subcutaneous, qWeek, rotate injection sites, # 4 EA, 0 Refill(s) Start Date: 01/31/23 Status: Ordered Quantity: 4.0 Unit: EA Repeat number: 1 allopurinol 300 mg oral tablet (2 sources) Xanthine Oxidase Inhibitor Start: 02-13-2024 allopurinol 300 mg oral tablet Dose : 300 mg = 1 tab(s), TAKE 1 TABLET BY MOUTH ONCE DAILY Start Date: 02/13/24 Status: Ordered Repeat number: 1 Start: 04-17-2023 take 300 mg by mouth once tammi y Allopurinol Active 300 MG PO DAILY April 17, 2023 1:00am amoxicillin 500 mg / clavulanate 125 mg oral tablet (1 source) Penicillin-class Antibacterial Start: 06-12-2024 End: 06-22-2024 take 1 tablet by mouth every eight hours amoxicillin-clavulanate 500 mg-125 mg oral tablet 1 tab(s), Oral, q8h, X 10 day(s), # 30 tab(s), 0 Refill(s), 06/22/24 5:39:00 PM EDT, 83.8 Start Date: 06/12/24 Stop Date: 06/22/24 Status: Ordered Quantity: 30.0 Unit: tab(s) Repeat number: 1 aspirin 81 mg delayed release oral tablet (3 sources) Platelet Aggregation Inhibitor, Nonsteroidal Anti-inflammatory Drug Start: 02-24-2015 take 81 mg by mouth once daily Aspirin Active 81 MG PO DAILY@0800 February 24, 2015 1:00am Start: 03-06-2013 [facility] Aspirin 81 mg oral tablet, (chewable) Dose : 81 mg = 1 tab(s), Oral, qDayM, 0 Refill(s) Start Date: 03/06/13 Status: Ordered Repeat number: 1 atorvastatin 80 mg oral tablet (4 sources) HMG-CoA Reductase Inhibitor Start: 01-31-2023 take 80 mg by mouth at bedtime Atorvastatin Active 80 MG PO AT BEDTIME April 29, 2023 12:00am Start: 02-24-2015 End: 04-30-2023 take 20 mg by mouth at bedtime Atorvastatin Discontinu ed 20 MG PO AT BEDTIME February 24, 2015 1:00am April 30, 2023 4:20pm cilostazol 50 mg oral tablet (1 source) Phosphodiesterase 3 Inhibitor Start: 07-29-2023 take 1 tablet by mouth twice daily cilostazol 50 mg oral tablet TAKE 1 TABLET BY MOUTH TWICE DAILY Start Date: 07/29/23 Status: Ordered Repeat number: 1 clopidogrel 75 mg oral tablet (2 sources) [id number] Platelet Inhibitor Start: 02-13-2024 clopidogrel 75 mg oral tablet Dose : 75 mg = 1 tab(s), TAKE 1 TABLET BY MOUTH ONCE DAILY Start Date: 02/13/24 Status: Ordered Repeat number: 1 Start: 04-17-2023 take 75 mg by mouth once daily Clopidogrel Active 75 MG PO DAILY April 17, 2023 1:00am dicyclomine hydrochloride 20 mg oral tablet (2 sources) Anticholinergic Start: 07-24-2017 Dicyclomine Ac tive 20 MG PO NEEDED April 17, 2023 1:00am glipiZIDE er 5 mg 24 hr extended release oral tablet (4 sources) Sulfonylurea Start: 04-29-2023 take 5 mg by mouth once daily Glipizide Active 5 MG PO DAILY April 29, 2023 12:00am Start: 07-24-2017 glipiZIDE 5 mg oral tablet Dose : 5 mg = 1 tab(s), Oral, qDayAC, 0 Refill(s) Start Date: 07/24/17 Status: Ordered Repeat number: 1 Start: 02-24-2015 End: 04-30-2023 take 10 mg by mouth twice daily before mealtime Glipizide Discontinued 10 MG PO TWICE DAILY BEFORE MEALS February 24, 2015 1:00am April 30, 2023 4:21pm lisinopril 20 mg oral tablet (3 sources) Angiotensin Converting Enzyme Inhibitor Start: 02-24-2015 End: 04-10-2023 lisinopril 20 mg oral tablet Dose : 20 mg = 1 tab(s), Oral, Daily, 0 Refill(s) Start Date: 07/24/17 Status: Ordered Repeat number: 1 meclizine hydrochloride 25 mg oral tablet (2 sources) Antiemetic Start: 04-02-2023 take 25 mg by mouth three times daily Meclizine Active 25 MG PO THREE TIMES A DAY April 02, 2023 7:08pm metFORMIN hydrochloride 500 mg oral tablet (3 sources) Biguanide Start: 07-25-2017 metFORMIN 500 mg oral tablet Dose : 1,000 mg = 2 tab(s), Oral, BIDM, 0 Refill(s) Start Date: 07/25/17 Status: Ordered Repeat number: 1 Start: 02-24-2015 take 1000 mg by mout h twice daily Metformin Active 1000 MG PO TWICE A DAY February 24, 2015 1:00am methylPREDNISolone 4 mg oral tablet (1 source) Corticosteroid Start: 06-12-2024 End: 06-18-2024 Medrol Dosepak 4 mg oral tablet Per Dosepak Instructions, Oral, Daily, as directed on package labeling, X 6 day(s), # 1 EA, 0 Refill(s), 06/18/24 5:39:00 PM EDT Start Date: 06/12/24 Stop Date: 06/18/24 Status: Ordered Quantity: 1.0 Unit: EA Repeat number: 1 24 hr metoprolol succinate 100 mg extended release oral tablet (3 sources) beta-Adrenergic Marlene Start: 07-24-2017 metoprolol succinate 100 mg oral tablet, extended release Dose : 100 mg = 1 tab(s), Oral, qDayM, 0 Refill(s) Start Date: 07/24/17 Status: Ordered Repeat number: 1 Start: 02-24-2015 take 100 mg by mouth once tammi y Metoprolol Tartrate Active 100 MG PO DAILY February 24, 2015 1:00am nitroglycerin 0.4 mg sublingual tablet (1 source) Nitrate Vasodilator Start: 02-13-2024 Nitrostat 0.4 mg sublingual tablet Dose : 0.4 mg = 1 tab(s), Sublingual, q5min, PRN as needed for chest pain, # 30 tab(s), 11 Refill(s), Pharmacy: [id number], 160, cm, 02/13/24 15:36:00 EST, Height, kg, 02/13/24 15:36:00 EST, Dosing Weight Start Date: 02/13/24 Status: Ordered Quantity: 30.0 Unit: tab(s) Repeat number: 12 ondansetron 4 mg disintegrating oral tablet (2 sources) Serotonin-3 Receptor Antagonist Start: 04-02-2023 take 4 mg by mouth every eight hours as needed Ondansetron Active 4 MG PO EVERY 8 HOURS NEEDED April 02, 2023 1:00am oxyCODONE hydrochloride 5 mg oral tablet (1 source) Opioid Agonist Start: 04-30-2023 take 5 mg by mouth every eight hours as needed Oxycodone Active 5 MG PO EVERY 8 HOURS NEEDED 15 April 30, 2023 pramipexole dihydrochloride 0.125 mg oral tablet (1 source) Nonergot Dopamine Agonist Start: 02-13-2024 pramipexole 0.125 mg oral tablet Dose : 0.125 mg = 1 tab(s), 0 Refill(s) Start Date: 02/13/24 Status: Ordered Repeat number: 1 Problems Active Problems Problem Classification Problem Date Documented Da te Episodic/Chronic Acute cerebrovascular disease (3 sources) Cerebral infarction due to stenosis of carotid artery; Translations: [Cerebral infarction due to unspecified occlusion or stenosis of left carotid arteries] Onset: 4 04-10-2023 Chronic Acute myocardial infarction (1 source) Acute non-ST segment elevation myocardial infarction 07-24-2017 Chronic Coronary atherosclerosis and other heart disease (2 sources) Coronary arteriosclerosis; Translations: [Coronary arteriosclerosis in [place] artery] 07-14-2019 Chronic Comment on above: 07/25/17:Left main nor mal; LAD 50% ostial stenosis followed by 40% proximal stenosis; first diagonal minor luminal irregularities. LCx 90% mid vessel stenosis. RCA 50% proximal stenosis. RPDA 30% stenosis. Right posterior lateral extension had patent stent. PCI on the 90% stenosis in the mid left circumflex- balloon angioplasty- stent placement: 2.75mm x 15mm Resolute Misha RX stent status post NSTEMI on 03/06/2013 treated with 2.25 x 12 mm Promus Premier drug-eluting stent placed into posterolateral branch of RCA. There is residual 70% LAD disease. Diabetes mellitus with complications (1 source) Type 2 diabetes mellitus with hyperglycemia; Translations: [Type 2 diabetes mellitus with hyperglycemia] Onset: 5 Chronic Diabetes mellitus without complication (1 source) Diabetes mellitus 07-24-2017 Chronic Disorders of lipid metabolism (1 source) Hyperlipidemia 03-24-2019 Chronic Comment on above: 12/03/14 CHOL 161 TR IG 114 HDL 45 LDL 93 04/19/2018: Cholesterol 162, triglycerides 89, HDL 45, LDL 99. Disorders of teeth and jaw (5 sources) Disorder of teeth AND/OR supporting structures; Translations: [Other specified disorders of teeth and supporting structures] Onset: 5 Episodic Endometriosis (1 source) Endometriosis of cervix 03-05-2013 Chronic Essential hypertension (2 sources) Essential hypertension; Translations: [Hypertensive disorder] 03-24-2019 Chronic Headache; including migraine (2 sources) Headache; including migraine; Translations: [Headache, unspecified] Onset: 5 Occlusion or stenosis of precerebral arteries (1 source) Carotid artery stenosis 02-14-2024 Chronic Other aftercare (1 source) Encounter for surgical aftercare following surgery on the circulatory system; Translations: [Encounter for surgical aftercare following surgery on the circulatory system] Onset: 5 Episodic Other gastrointestinal disorders (1 source) Celiac disease; Translations: [Celiac disease] Onset: 5 Chronic Other gastrointestinal disorders (1 source) Irritable bowel syndrome with diarrhea; Translations: [Irritable bowel syndrome with diarrhea] Onset: 5 Chronic Other lower respiratory disease (1 source) Dyspnea 03-24-2019 Episodic Other nutritional; endocrine; and metabolic disorders (1 source) Overweight 03-24-2019 Episodic Peripheral and visceral atherosclerosis (1 source) Atherosclerosis of [place] arteries of extremities with intermittent claudication, right leg; Translations: [Atherosclerosis of [place] arteries of extremities with intermittent claudication, right leg] Onset: 4 Chronic Residual codes; unclassified (1 source) Obstructive sleep apnea syndrome 07-29-2021 Chronic Residual codes; unclassified (1 source) Peripheral edema 07-24-2017 Episodic Residual codes; unclassified (1 source) Preoperative state 02-14-2024 Episodic Residual codes; unclassified (1 source) Other specified postprocedural states; Translations: [Other specified postprocedural states] Onset: 5 Episodic Screening and history of mental health and substance abuse codes (1 source) Personal history of nicotine dependence; Translations: [Personal history of nicotine dependence] Onset: 5 Episodic Unclassified (1 source) Influenza vaccination declined 03-24-2019 Comment on above: 2019/ Patient inform ed to follow up with Primary Care Physician. Unclassified (1 source) Vaccine refused by parent 03-24-2019 Comment on above: Patient informed to follow up with Primary Care Physician. 2019 Past or Other Problems Problem Classification Problem Date Documented Da te Episodic/Chronic Deficiency and other anemia (2 sources) Iron deficiency anemia, unspecified; Translations: [Iron deficiency anemia, unspecified] Onset: 03-02-2024 Episodic Nausea and vomiting (6 sources) Nausea with vomiting, unspecified; Translations: [Nausea and vomiting] Onset: 03-02-2024 Episodic Other gastrointestinal disorders (4 sources) Diarrhea, unspecified; Translations: [Diarrhea, unspecified] Onset: 02-20-2024 Episodic Other gastrointestinal disorders (2 sources) Full incontinence of feces; Translations: [Full incontinence of feces] Onset: 02-05-2024 Episodic Other nutritional; endocrine; and metabolic disorders (1 source) Hyperuricemia without signs of inflammatory arthritis and tophaceous disease; Translations: [Hyperuricemia without signs of inflammatory arthritis and tophaceous disease] Onset: 02-20-2024 Episodic Results Test Name Value Interpretation Reference Range Facility .Auto Diffon 06-12-2024 Basophil, Absolute 0.0 10 3/mcL Normal 0.0-0.3 [facility] Comment on above: Performed By: #### A DIFF, ANEU, BMP, MDW, GFR, CBC #### [address] [address] Basophils/100 WBC (Bld) 0.4 % Normal 0.0-2.5 [facility] Comment on above: Performed By: #### A DIFF, ANEU, BMP, MDW, GFR, CBC #### [address] [address] Eosinophil, Absolute 0.1 10 3/mcL Normal 0.0-0.7 [facility] Comment on above: Performed By: #### A DIFF, ANEU, BMP, MDW, GFR, CBC #### [address] [address] Eosinophils/100 WBC (Bld) 1.1 % Normal 0.0-6.0 [facility] Comment on above: Performed By: #### A DIFF, ANEU, BMP, MDW, GFR, CBC #### [address] [address] Lymphocyte, Absolute 2.2 10 3/mcL Normal 0.9-4.3 [facility] Comment on above: Performed By: #### A DIFF, ANEU, BMP, MDW, GFR, CBC #### [address] [address] Lymphocytes/100 WBC (Bld) 19.7 % Low 20.0-40.0 [facility] Comment on above: Performed By: #### A DIFF, ANEU, BMP, MDW, GFR, CBC #### [address] [address] Monocyte, Absolute 1.4 10 3/mcL Normal 0.1-1.4 [facility] Comment on above: Performed By: #### A DIFF, ANEU, BMP, MDW, GFR, CBC #### [address] [address] Monocytes/100 WBC (Bld) 12.8 % Normal 2.0-13.0 [facility] Comment on above: Performed By: #### A DIFF, ANEU, BMP, MDW, GFR, CBC #### [address] [address] Neutrophils/100 WBC (Bld) 66.0 % Normal 50.0-75.0 [facility] Comment on above: Performed By: #### A DIFF, ANEU, BMP, MDW, GFR, CBC #### [address] [address] .GFRon 06-12-2024 Estimated Glomerular Filtration Rate 33 ml/min/1.73sqm Normal [facility] Comment on above: Result Comment: Stages of Chronic Kidney Disease (CKD) Stage Description eGFR(ml/min/1.73 sq.m.) CKD 1 Normal kidney function or >=90 normal kindney function with possible kidney damage (ex. Proteinuria) CKD 2 Kidney damage with mild loss 60-89 of kidney function CKD 3a Mild to moderate loss of kidney 45-59 function CKD 3b Moderate to severe loss of 30-44 of kindey function CKD 4 Severe loss of kidney function 15-29 CKD 5 Kidney failure <15 Note: (go live 2024) the eGFR calculation was updated to the 2020 CKD-EPI creatinine equation without a race factor to calculate the eGFR results. Performed By: #### A DIFF, ANEU, BMP, MDW, GFR, CBC #### [address] [address] .MDWon 06-12-2024 Monocyte Distribution Width 19.23 Normal 0.00-20.00 [facility] Comment on above: Result Comment: For ED adult patients suspected of sepsis, MDW<=20.0 does not rule out sepsis or risk of sepsis Performed By: #### A DIFF, ANEU, BMP, MDW, GFR, CBC #### [address] [address] .NEUABSon 06-12-2024 Neutrophil, Absolute 7.4 10 3/mcL Normal 2.3-8.1 [facility] Comment on above: Performed By: #### A DIFF, ANEU, BMP, MDW, GFR, CBC #### [address] [address] BMPon 06-12-2024 BUN/Creatinine Ratio 12.8 ratio Normal 10.0-22.0 [facility] Comment on above: Performed By: #### A DIFF, ANEU, BMP, MDW, GFR, CBC #### [address] [address] Calcium [Mass/Vol] 10.0 mg/dL Normal 8.7-10.4 [facility] Comment on above: Performed By: #### A DIFF, ANEU, BMP, MDW, GFR, CBC #### [address] [address] Chloride [Moles/Vol] 103 mmol/L Normal 98-110 [facility] Comment on above: Performed By: #### A DIFF, ANEU, BMP, MDW, GFR, CBC #### [address] [address] CO2 [Moles/Vol] 28 mmol/L Normal 22-32 [facility] Comment on above: Performed By: #### A DIFF, ANEU, BMP, MDW, GFR, CBC #### [address] [address] Creatinine [Mass/Vol] 1.72 mg/dL High 0.50-1.20 [facility] Comment on above: Result Comment: Test ing performed on Zoyi analyzer using enzymatic creatinine methodology. Performed By: #### A DIFF, ANEU, BMP, MDW, GFR, CBC #### [address] [address] Electrolyte Balance 9.0 mEq/L Normal 4.0-15.0 [facility] Comment on above: Performed By: #### A DIFF, ANEU, BMP, MDW, GFR, CBC #### [place] [id number] Glucose [Mass/Vol] 85 mg/dL Normal 82-115 [facility] Comment on above: Performed By: #### A DIFF, ANEU, BMP, MDW, GFR, CBC #### [place] [id number] Potassium [Moles/Vol] 4.4 mmol/L Normal 3.5-5.0 [facility] Comment on above: Performed By: #### A DIFF, ANEU, BMP, MDW, GFR, CBC #### [place] [id number] Sodium [Moles/Vol] 140 mmol/L Normal 136-145 [facility] Comment on above: Performed By: #### A DIFF, ANEU, BMP, MDW, GFR, CBC #### [place] [id number] Urea nitrogen [Mass/Vol] 22.0 mg/dL Normal 8.0-22.0 [facility] Comment on above: Performed By: #### A DIFF, ANEU, BMP, MDW, GFR, CBC #### [address] [address] CBCon 06-12-2024 Erythrocyte distribution width (RBC) [Ratio] 14.4 % Normal 11.5-15.5 [facility] Comment on above: Performed By: #### A DIFF, ANEU, BMP, MDW, GFR, CBC #### [address] [address] Hematocrit (Bld) [Volume fraction] 40.2 % Normal 34.0-46.0 [facility] Comment on above: Performed By: #### A DIFF, ANEU, BMP, MDW, GFR, CBC #### [place] [address] Hgb 13.6 G/dL Normal 12.0-16.0 [facility] Comment on above: Performed By: #### A DIFF, ANEU, BMP, MDW, GFR, CBC #### [place] [address] MCH (RBC) [Entitic mass] 30.4 pg Normal 27.0-33.0 [facility] Comment on above: Performed By: #### A DIFF, ANEU, BMP, MDW, GFR, CBC #### [place] [address] MCHC 33.9 G/dL Normal 32.0-36.0 [facility] Comment on above: Performed By: #### A DIFF, ANEU, BMP, MDW, GFR, CBC #### [place] [address] MCV (RBC) [Entitic vol] 89.7 fL Normal 80.0-99.0 [facility] Comment on above: Performed By: #### A DIFF, ANEU, BMP, MDW, GFR, CBC #### [place] [address] Platelet 233 10 3/mcL Normal 150-450 [facility] Comment on above: Performed By: #### A DIFF, ANEU, BMP, MDW, GFR, CBC #### [place] [address] Platelet mean volume (Bld) [Entitic vol] 8.3 fL Normal 6.6-10.5 [facility] Comment on above: Performed By: #### A DIFF, ANEU, BMP, MDW, GFR, CBC #### [place] [address] RBC 4.48 10 6/mcL Normal 4.10-5.30 [facility] Comment on above: Performed By: #### A DIFF, ANEU, BMP, MDW, GFR, CBC #### [address] [place], [place] [address] WBC 11.2 10 3/mcL High 4.5-10.8 [facility] Comment on above: Performed By: #### A DIFF, ANEU, BMP, MDW, GFR, CBC #### [facility] [address] [place] [id number] MAXILLOFACIAL W/ CONTRAST on 06-12-2024 CT MAXILLOFACIAL W/ CONTRAST ORIGINAL EXAMINATION: CT OF THE FACE WITH CONTRAST 06/12/2024 TECHNIQUE: CT of the face was performed with the administration of intravenous contrast. Multiplanar reformatted images are provided for review. Automated exposure control, iterative reconstruction, and/or weight based adjustment of the mA/kV was utilized to reduce the radiation dose to as low as reasonably achievable. COMPARISON: None. HISTORY: ORDERING SYSTEM PROVIDED HISTORY: Reason for Exam: impacted left wisdom teeth, w abscess and infection in left jaw, left facial swelling left dental abscess FINDINGS: Periapical lucency of the left maxillary 2nd premolar, with a buccal sided subperiosteal abscess measuring 1.6 x 0.6 cm in the axial plane and 1.7 cm cranio caudally. Overlying phlegmonous changes. Soft tissue swelling and edema, which extends into the infraorbital, left cheek and mandibular/submandibula r region. Multiple dental caries and periapical lucencies, including of the left mandibular 2nd molar with lingual sided cortical dehiscence although without subjacent fluid collection. Mucosal thickening in the left maxillary sinus inferiorly, presumably odontogenic. IMPRESSION: Periapical lucency of the left maxillary 2nd premolar, with a buccal sided subperiosteal abscess. Interpreted by: Stephany Brown Preliminary Report By: Stephany Brown Electronically signed By Stephany Brown Dictated Date: 06/12/2024 4:01:15 PM Prelim Date: 06/12/2024 4:06:15 PM Sign Date: 06/12/2024 4:06:15 PM Ordering Provider: MAYUR Pelaez [facility] LABORATORYOrdered By: SYSTEM SYSTEM on 06-12-2024 Basophils (Bld) [#/Vol] 0.0 103/mcL Normal 0.0 - 0.3 10^3/mcL AH Workflow SS Basophils/100 WBC (Bld) 0.4 % Normal 0.0 - 2.5 % AH Workflow SS Calcium [Mass/Vol] 10.0 mg/dL Normal 8.7 - 10. 4 mg/dL ADM SS Chloride [Moles/Vol] 103 mmol/L Normal 98 - 11 0 mEq/L ADM SS CO2 [Moles/Vol] 28 mmol/L Normal 22 - 32 mEq/L ADM SS Creatinine [Mass/Vol] 1.72 mg/dL High 0.50 - 1.20 mg/dL ADM SS Comment on above: Interpretive Data: T esting performed on Zoyi analyzer using enzymatic creatinine methodology. Electrolyte Balance 9.0 mEq/L Normal 4.0 - 15 .0 mEq/L ADM SS Eosinophils (Bld) [#/Vol] 0.1 103/mcL Normal 0.0 - 0.7 10^3/mcL Workflow SS Eosinophils/100 WBC (Bld) 1.1 % Normal 0.0 - 6.0 % Workflow SS Erythrocyte distribution width (RBC) [Ratio] 14.4 % Normal 11.5 - 15.5 % Workflow SS Estimated Glomerular Filtration Rate 33 ml/min/1.73sqm Invalid Interpretation Code ADM SS Comment on above: Interpretive Data: Stages of Chronic Kidney Disease (CKD) Stage Description eGFR(ml/min/1.73 sq.m.) CKD 1 Normal kidney function or >=90 normal kindney function with possible kidney damage (ex. Proteinuria) CKD 2 Kidney damage with mild loss 60-89 of kidney function CKD 3a Mild to moderate loss of kidney 45-59 function CKD 3b Moderate to severe loss of 30-44 of kindey function CKD 4 Severe loss of kidney function 15-29 CKD 5 Kidney failure <15 Note: (go live 2024) the eGFR calculation was updated to the 2020 CKD-EPI creatinine equation without a race factor to calculate the eGFR results. Glucose [Mass/Vol] 85 mg/dL Normal 82 - 115 mg/dL ADM SS Hematocrit (Bld) [Volume fraction] 40.2 % Normal 34.0 - 46.0 % Workflow SS Hemoglobin (Bld) [Mass/Vol] 13.6 G/dL Normal 12.0 - 16.0 G/dL Workflow SS Lymphocytes (Bld) [#/Vol] 2.2 103/mcL Normal 0.9 - 4.3 10^3/mcL Workflow SS Lymphocytes/100 WBC (Bld) 19.7 % Low 20.0 - 40.0 % AH Workflow SS MCH (RBC) [Entitic mass] 30.4 pg Normal 27. 0 - 33.0 pg AH Workflow SS MCHC 33.9 G/dL Normal 32.0 - 36.0 G/dL AH Workflow SS MCV (RBC) [Entitic vol] 89.7 fL Normal 80.0 - 99.0 fL AH Workflow SS Monocyte distribution width Auto (Bld) [Entitic vol] 19.23 1 Normal 0.00 - 20.00 AH Workflow SS Comment on above: Result Comment: For ED adult patients suspected of sepsis, MDW<=20.0 does not rule out sepsis or risk of sepsis Monocytes (Bld) [#/Vol] 1.4 103/mcL Normal 0.1 - 1.4 10^3/mcL AH Workflow SS Monocytes/100 WBC (Bld) 12.8 % Normal 2.0 - 13.0 % AH Workflow SS Neutrophils (Bld) [#/Vol] 7.4 103/mcL Normal 2.3 - 8.1 10^3/mcL AH Workflow SS Neutrophils/100 WBC (Bld) 66.0 % Normal 50.0 - 75.0 % AH Workflow SS Platelet mean volume (Bld) [Entitic vol] 8.3 fL Normal 6.6 - 10.5 fL AH Workflow SS Platelets (Bld) [#/Vol] 233 103/mcL Normal 150 - 450 10^3/mcL AH Workflow SS Potassium [Moles/Vol] 4.4 mmol/L Normal 3.5 - 5.0 mEq/L AH ADM SS RBC (Bld) [#/Vol] 4.48 106/mcL Normal 4.10 - 5.3 0 10^6/mcL AH Workflow SS Sodium [Moles/Vol] 140 mmol/L Normal 136 - 145 mEq/L AH ADM SS Urea nitrogen [Mass/Vol] 22.0 mg/dL Normal 8.0 - 22.0 mg/dL AH ADM SS Urea nitrogen/Creatinine [Mass ratio] 12.8 ratio Normal 10.0 - 22.0 ratio AH ADM SS WBC (Bld) [#/Vol] 11.2 103/mcL High 4.5 - 10.8 10^3/mcL AH Workflow SS No Panel Informationon 06-12 Microscopic examination of blood, culture Culture has been received in lab and is no growth to date. Routine cultures are held for 5 days. [facility] Work Phone: Microscopic examination of blood, culture Culture has been received in lab and is no growth to date. Routine cultures are held for 5 days. [facility] Work Phone: CBC + DIFFon 06-11-2024 Baso # 0.02 x10EE3/UL Normal 0.00 - 0.10 [facility] Comment on above: Performed By: #### 2 [id number] ####[facility],[address] [place] [address]7840 Basophils/100 WBC (Bld) 0.2 % Normal 0.0 - 2.0 [facility] Comment on above: Performed By: #### 2 36636 ####[facility],[address] [place] [address] 33710 CBC + DIFF Normal [facility] Comment on above: Result Comment: CBC- COMPLETE BLOOD COUNT Performed By: #### 2 [id number] ####[facility],[address] [place] [address] 23917 EO # 0.22 x10EE3/UL Normal 0.00 - 0.50 [facility] Comment on above: Performed By: #### 2 99028 ####[facility],[address] [place] [address] 29703 Eosinophils/100 WBC (Bld) 2.3 % Normal 0.0 - 7.0 [facility] Comment on above: Performed By: #### 2 25170 ####[facility],[address] [place] [address] 18479 Erythrocyte distribution width (RBC) [Ratio] 13.2 % Normal 12.0 - 15.6 [facility] Comment on above: Performed By: #### 2 49569 ####[facility],[address] [place] [address] Hematocrit (Bld) [Volume fraction] 40.8 % Normal 34.0 - 46.0 [facility] Comment on above: Performed By: #### 2 50148 ####[facility],[address] [place] [address] Hemoglobin (Bld) [Mass/Vol] 14.6 g/dL Normal 12.0 - 16.0 [facility] Comment on above: Result Comment: RPT FOR H & H CHECK Performed By: #### 2 97777 ####[facility],[address] [place] [address] Lymph # 1.09 x10EE3/UL Normal 0.80 - 2.80 [facility] Comment on above: Performed By: #### 2 78722 ####[facility],[address] [place] [address] Lymphocytes/100 WBC (Bld) 11.4 % Low 20.0 - 45.0 [facility] Comment on above: Performed By: #### 2 26181 ####[facility],[address] [place] [address] MANUAL DIFF N/A Normal [facility] Comment on above: Performed By: #### 2 97397 ####[facility],[address] [place] [address] MCH (RBC) [Entitic mass] 32 pg Normal 27 - 33 [facility] Comment on above: Performed By: #### 2 [id number] ####[facility],[address] [place] [address] MCHC 36 X10 3 Normal 32 - 36 [facility] Comment on above: Performed By: #### 2 08260 ####[facility],[address] [place], [place] [id number] MCV (RBC) [Entitic vol] 89 fL Normal 80 - 99 [facility] Comment on above: Performed By: #### 2 99610 ####[facility],[address] [place] [address] [place] # 0.75 x10EE3/UL Normal 0.20 - 1.00 [facility] Comment on above: Performed By: #### 2 77724 ####[facility],[address] [place] [address] MONOS % 7.9 % Normal 0.0 - 10.0 [facility] Comment on above: Performed By: #### 2 67328 ####[facility],[address] [place] [address] 83688 Morphology Alexander (Bld) [Interp] N/A Normal [facility] Comment on above: Performed By: #### 2 18867 ####[facility],[address] [place] [address] Neut # 7.50 x10EE3/UL High 1.50 - 7.10 [facility] Comment on above: Performed By: #### 2 39739 ####[facility],[address] [place] [address] 28078 Neutrophils/100 WBC (Bld) 78.3 % High 46.0 - 76.0 [facility] Comment on above: Performed By: #### 2 25141 ####[facility],[address] [place] [address] 93226 PLATELET 196 x10EE3/UL Normal 150 - 450 [facility] Comment on above: Performed By: #### 2 09884 ####[facility],[address] [place] [address] 20988 Platelet mean volume (Bld) [Entitic vol] 7.5 fL Normal 6.6 - 10.5 [facility] Comment on above: Result Comment: AUTO MATED DIFFERENTIAL Performed By: #### 2 58837 ####[facility],[address] [place] [address] 66587 RBC 4.60 x 10EE6/UL Normal 4.10 - 5.30 [facility] Comment on above: Performed By: #### 2 64590 ####[facility],[address] [place] [address] 22261 WBC 9.6 x 10EE3/UL Normal 4.5 - 10.8 [facility] Comment on above: Performed By: #### 2 55042 ####[facility],[address] [place] [address] 31685 ED MED ADMINISTRATION DETAIL on 06-11-2024 ED MED ADMINISTRATION DETAIL Control Systems Technician Medication Administration Record [address] [address] [id number] 06/11/2024 Patient: KYRA GRANDE Sex: Female : 1960 Age: 63y MEASUREMENTS: Wt: 102.1 kg, Ht/Aris: 62.0 in, BMI: 41.15 ALLERGIES: No known drug allergies Medication Ordered Medication Administration Date/Time Clindamycin PO 01:39 06/11 Clindamycin PO 300 mg given. Allergies verified and Given 300 mg (NOW x1) confirmed 5 rights. Information reviewed with patient. Verbalizes 01:39 06/11/2024 understanding. - 01:40 Ana Nelson R.N. Scanned 1 of 1 Normal [facility] ED NURSES CLINICAL NOTEon ED NURSES CLINICAL NOTE Nurse Narrative Nurse Clinical Narrative [address] [address] [id number] 06/11/2024 01:18:00 Patient: KYRA GRANDE Sex: Female : 1960 Age: 63y Disposition: Discharge to Home Disposition Decision Time: 02:18 06/11/2024 Departure Time: 02:20 06/11/2024 TRIAGE Arrived by private vehicle. Historian: (patient). Primary care physician notified of patient's arrival. Primary physician (AUGUSTO TEMPLE PCP/ - ORAL SURGEON). Triage time: 01:12 06/11/2024. Chief Complaint: LEFT LOWER TOOTHACHE and SWELLING OF JAW / FACE. ( DR AWARE OF SIRS). The patient has had severe left-sided facial pain (- worsening). No mouth sores or enlarged lymph nodes. The patient has had moderate swelling of the left jaw (- worsening). The patient has had moderate swelling of the left face (- worsening). 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 (PATIENT TAKING PAIN MEDICINE FROM PAST RX). SEPSIS SCREEN: NEGATIVE. SIRS criteria positive: heart rate greater than 90 and respiratory rate greater than 20. No possible sources of infection. -- 01:06/11/24 DEANDRAT Mali David R.N. 01:06/11/24. ( DR. MERRITT NOTIFIED OF PATIENT MEETING SIRS CRITERIA). -- 02:06/11/24 EDT Mali David R.N. 01:06/11/24. BP: 171/91 MAP: 118. HR: 112. RR: 22. O2 saturation: 95% Temperature: 99.1 F. Pain level now 10/10. (PATIENT STATES 11). -- 01:06/11/24 EDT Mali David R.N. 1 of 4 Nurse Narrative Acuity: LEVEL 4. 01:06/11/24. -- 01:06/11/24 EDT Mali David R.N. Measurements: 01:06/11/24 Wt: 102.1 kg, Ht/Aris: 62.0 in, BMI: 41.15 -- 01:06/11/24 DEANDRAT Mali David R.N. Medications: nitroglycerin 0.4 mg sublingual tablet -- 01:06/11/24 DEANDRAT Mali David R.N. metoprolol succinate ER 100 mg tablet,extended release 24 hr -- 01:06/11/24 DEANDRAT Mali David R.N. aspirin 81 mg tablet,delayed release -- 01:06/11/24 DEANDRAT Mali David R.N. pramipexole 0.125 mg tablet -- 01:06/11/24 DEANDRAT Mali David R.N. atorvastatin 80 mg tablet -- 01:06/11/24 AMARA David R.N. cilostazol 50 mg tablet -- 01:06/11/24 DEANDRAT Mali David R.N. lisinopril 20 mg tablet -- 01:06/11/24 AMARA David R.N. clopidogrel 75 mg tablet -- 01:06/11/24 AMARA David R.N. dicyclomine 20 mg tablet -- 01:06/11/24 DEANDRAT Mali David R.N. glipizide ER 5 mg tablet, extended release 24 hr -- 01:06/11/24 AMARA David R.N. Mounjaro 7.5 mg/0.5 mL subcutaneous pen injector -- 01:06/11/24 DEANDRAT Mali David R.N. allopurinol 300 mg tablet -- 01:06/11/24 DEANDRAT Mali David R.N. Allergies: no known drug allergies -- 01:06/11/24 AMARA David R.N. Problems: Myocardial Infarction -- 01:06/11/24 AMARA David R.N. Hypertension -- 01:06/11/24 AMARA David R.N. Diabetes Mellitus -- 01:06/11/24 AMARA David R.N. Celiac Disease -- 01:06/11/24 AMARA David R.N. Hyperlipidemia -- 01:06/11/24 AMARA David R.N. CVA - Cerebrovascular Accident -- 01:06/11/24 AMARA David R.N. ADDITIONAL SURGERIES: Cardiac Catheterization -- 01:06/11/24 AMARA David R.N. Hysterectomy -- 01:06/11/24 AMARA David R.N. Cholecystectomy -- 01:06/11/24 AMARA David R.N. 2 of 4 Nurse Narrative Carotid Surgery -- 01:06/11/24 AMARA David R.N. History 01:06/11/24. SOCIAL HX: Never smoker. No alcohol use or drug use. ABUSE ASSESSMENT: No report of abuse. SELF HARM ASSESSMENT: Self harm assessment was performed. The patient answered no to the question(s) Have you recently felt down, depressed, or hopeless? and Do you have thoughts of harming or killing yourself?. FALL RISK ASSESSMENT: Fall risk assessment completed. No risk factors identified. -- 01:31 06/11/24 EDT Mali David R.N. 01:32 06/11/24. SOCIAL HX: The patient has not traveled outside the [place] Infectious disease exposure: No infectious disease exposure. -- 01:32 06/11/24 EDT Mali David R.N. PHYSICAL ASSESSMENT 01:30 06/11/24. Ambulatory to room. ( PATIENT STATES 11/10 PAIN. THIS STARTED WHEN SHE WOKE UP AN HAD THE PAIN. THIS PAULO IS CHRONIC AND SHE IS UNDER THE TREATMENT OF A ORAL FACIAL SURGEON FOR THIS ISSUE. PATIENT HAS SWELLING TO LEFT LOWER ASPECT OF THE FACE THAT DOES NOT GO PAST THE JAW LINE OF THE FACE. I DID NOT APPRECIATE LYMPH NODE SWELLING AT THIS TIME.). GENERAL / NEURO / PSYCH: Alert. Oriented X 4. Appears in no acute distress. HEENT: Pharynx within normal limits. Voice within normal limits. No dental injury noted. Left buccal area: tenderness, swelling and erythema (UNABLE TO VISUALIZE ANY DENTAL TERESA (more content not included)... Normal [facility] ED ORDER SHEET (CPOE ONLY)on 06-11-2024 ED ORDER SHEET (CPOE ONLY) Order Sheet Order Sheet [address] [address] [id number] 06/11/2024 Patient: KYRA GRANDE Sex: Female : 1960 Age: 63y MEASUREMENTS: Wt: 102.1 kg, Ht/Aris: 62.0 in, BMI: 41.15 ALLERGIES: No known drug allergies MEDICATION/IV/DRIP/FLUI D ORDERS Order Description Priority Entered Acknowledged Completed Clindamycin PO300 mg (NOW 01:34 06/11/2024 01:40 x1) David Merritt D.O. 06/11/2024 Mali David R.N. LAB ORDERS Order Description Priority Entered Acknowledged Collected Completed CBC w Diff Stat Stat 01:33 06/11/2024 01:37 06/11/2024 01:46 06/11/2024 David Merritt, Crystal Mali David D.O. R.N. RMaria TeresaNMaria Teresa DIAGNOSTIC STUDY ORDERS Order Description Priority Entered Acknowledged Completed STAFF ORDERS Order Description Priority Entered Acknowledged Collected Completed 1 of 2 Order Sheet [Electronically signed by David Merritt D.O. (06/11/2024 02:30 EDT)] 2 of 2 Normal [facility] ED PHYSICIAN CLINICAL REPORT on 06-11-2024 ED PHYSICIAN CLINICAL REPORT Narrative Physician Clinical Narrative [place] [address] [place] [address] [phone] 06/11/2024 01:18:00 Patient: KYRA GRANDE Sex: Female : 1960 Age: 63y Disposition: Discharge to Home Disposition Decision Time: 02:18 06/11/2024 Departure Time: 02:20 06/11/2024 Measurements Wt: 102.1 kg, Ht/Aris: 62.0 in, BMI: 41.15 Initial Vital Sign Measured Time BP MAP HR RR O2Sat ETCO2 Temp Pain GCS RTS 01:20 06/11/2024 171/91 118 112 22 95% 99.1 F 10 Time Seen: 01:16 06/11/2024. Arrived- By private vehicle. Historian- patient. HISTORY OF PRESENT ILLNESS Chief Complaint: DENTAL PAIN. (this 63-year-old female presents to ER complaining of increased left lower dental pain since Saturday. Patient states she has not impacted left lower wisdom tooth and is trying to get scheduled to have an extraction. She also complains of awakening with increased pain this evening with facial edema which she did not have before. She was placed on penicillin by her PCP on Saturday. She has also taken some Advil and left over oxycodone for discomfort. She denies any fever. Patient states also that her left lower wisdom tooth had fractured and there is lateral widening between the 2 fragments.). Is still present. Pain described as moderate. No sore throat or mouth sores. Similar symptoms previously. Patient has had similar symptoms chronically. Milder from previously. 1 of 6 Narrative REVIEW OF SYSTEMS CONSTITUTIONAL: No fever. EYES: No eye discomfort. NEUROLOGICAL: No headache. PAST HISTORY Celiac Disease CVA - Cerebrovascular Accident Diabetes Mellitus Hyperlipidemia Hypertension Myocardial Infarction Surgeries: Cardiac Catheterization Carotid Surgery Cholecystectomy Hysterectomy Medications: allopurinol 300 mg tablet aspirin 81 mg tablet,delayed release atorvastatin 80 mg tablet cilostazol 50 mg tablet clopidogrel 75 mg tablet dicyclomine 20 mg tablet glipizide ER 5 mg tablet, extended release 24 hr lisinopril 20 mg tablet metoprolol succinate ER 100 mg tablet,extended release 24 hr Mounjaro 7.5 mg/0.5 mL subcutaneous pen injector nitroglycerin 0.4 mg sublingual tablet pramipexole 0.125 mg tablet Allergies: no known drug allergies 2 of 6 Narrative SOCIAL HISTORY Never smoker. No alcohol use. Does not use tobacco. ADDITIONAL NOTES The nursing notes have been reviewed. PHYSICAL EXAM Vital Signs: Have been reviewed. Appearance: Alert. No acute distress. Head: No mandibular swelling. (there is some mild to moderate swelling of the left facial area without erythema. There is Mild left lower gingival edema but no erythema. Left lower molar with significant widening between 2 broken fragments with filler between the fragments.). ENT: Dental decay. Ears normal. Nose normal. No trismus. Neck: Normal inspection. Trachea midline. No adenopathy. Thyroid normal. Neck supple. CVS: Normal heart rate. Heart sounds normal. Respiratory: No respiratory distress. Skin: Normal skin color. No rash. Neuro: Oriented X 3. LABS, X-RAYS, AND EKG Laboratory Tests: CBC + DIFF Final ARNIE: 06/11/2024 01:35:00 EDT MsgRcvd: 06/11/2024 01:53 EDT Lab Test Result Reference Status Received Comments 06/11/2024 01:53 CBC-COMPLETE CBC + DIFF Final EDT BLOOD COUNT 06/11/2024 01:53 WBC 9.6 x 10/UL 4.5 - 10.8 Final EDT 3 of 6 Narrative Lab Test Result Reference Status Received Comments 06/11/2024 01:53 RBC 4.60 x 10/UL 4.10 - 5.30 Final EDT 06/11/2024 01:53 RPT FOR H H HEMOGLOBIN 14.6 g/dl 12.0 - 16.0 Final EDT CHECK 06/11/2024 01:53 HEMATOCRIT 40.8 % 34.0 - 46.0 Final EDT 06/11/2024 01:53 MCV 89 fl 80 - 99 Final EDT 06/11/2024 01:53 MCH 32 pg 27 - 33 Final EDT 06/11/2024 01:53 MCHC 36 X10 3 32 - 36 Final EDT 06/11/2024 01:53 RDW/CV 13.2 % 12.0 - 15.6 Final EDT 06/11/2024 01:53 PLATELET 196 x10/UL 150 - 450 Final EDT 06/11/2024 01:53 AUTOMATED MPV 7.5 fl 6.6 - 10.5 Final EDT DIFFERENTIAL 78.3 % 06/11/2024 01:53 NEUT % 46.0 - 76.0 Final Above high normal EDT 11.4 % 06/11/2024 01:53 LYMPH % 20.0 - 45.0 Final Below low normal EDT 06/11/2024 01:53 MONOS % 7.9 % 0.0 - 10.0 Final EDT 06/11/2024 01:53 EO % 2.3 % 0.0 - 7.0 Final EDT 4 of 6 Narrative Lab Test Result Reference Status Received Comments 06/11/2024 01:53 BASO % 0.2 % 0.0 - 2.0 Final EDT 06/11/2024 01:53 Lymph # 1.09 x10/UL 0.80 - 2.80 Final EDT 7.50 x10/UL 06/11/2024 01:53 Neut # 1.50 - 7.10 Final Above high normal EDT 06/11/2024 01:53 [place] # 0.75 x10/UL 0.20 - 1.00 Final EDT 06/11/2024 01:53 EO # 0.22 x10/UL 0.00 - 0.50 Final EDT 06/11/2024 01:53 Baso # 0.02 x10/UL 0.00 - 0.10 Final EDT 06/11/2024 01:53 MAN (more content not included)... Normal [facility] ED SUPER BILLon 06-11-2024 ED SUPER BILL [facility] [address] [place] [address] [phone] 06/11/2024 Patient: KYRA GRANDE Sex: Female : 1960 Age: 63y Item Professional Category Description Facility Code Code Quantity Fee Total Nurse/E/M EMERGENCY 950889 1 $0.00 $0.00 DEPARTMENT VISIT MODERATE SEVERITY (38659-12) Grand Total $0.00 Providers David Merritt D.O. Chief Complaint DENTAL PAIN. Principal Diagnosis Dental abscess. No sinus tract or Andrew's angina. Tooth impaction. 1 of 2 Superbill ICD-10 Codes K04.7: Periapical abscess without sinus K01.1: Impacted teeth 2 of 2 Normal [facility] ED VISIT SUMMARYon ED VISIT SUMMARY Visit Overview Visit Overview [facility] [address] [place] [address] [id number] 06/11/2024 Patient: KYRA GRANDE Sex: Female : 1960 Age: 63y 06/11/2024 02:30 AM EDT ED Arrival:01:18 06/11/2024 EDT Status: Recent Travel:no Language:eng Adv Directive: Isolation Status: Ethnicity:N Fall Risk:no risk Infectious Disease Exposure:no Measurements:5'2 / 157.5 Self-Harm Status:no risk Sepsis Screen:negative cm 225.0 lb / 102.1 kg Chief Complaint:LEFT LOWER TOOTHACHE, SWELLING OF JAW / FACE, (- worsening), (AUGUSTO TEMPLE PCP/ - ORAL SURGEON), (DR AWARE OF SIRS), and (PATIENT TAKING PAIN MEDICINE FROM PAST RX) ALLERGIES No Known Drug Allergies HOME MEDICATIONS allopurinol 300 mg tablet 1 of 4 Visit Overview aspirin 81 mg tablet,delayed release atorvastatin 80 mg tablet cilostazol 50 mg tablet clopidogrel 75 mg tablet dicyclomine 20 mg tablet glipizide ER 5 mg tablet, extended release 24 hr lisinopril 20 mg tablet metoprolol succinate ER 100 mg tablet,extended release 24 hr Mounjaro 7.5 mg/0.5 mL subcutaneous pen injector nitroglycerin 0.4 mg sublingual tablet pramipexole 0.125 mg tablet PAST MEDICAL HISTORY / PROBLEMS Celiac Disease CVA - Cerebrovascular Accident Diabetes Mellitus Hyperlipidemia Hypertension Myocardial Infarction PAST SURGICAL HISTORY Cardiac Catheterization Carotid Surgery Cholecystectomy Hysterectomy SOCIAL HISTORY Smoking status: No Alcohol use: No Drug use: No ED COURSE MEDICATIONS GIVEN IN EMERGENCY DEPARTMENT 01:39 06/11/24 Clindamycin PO 300 mg 2 of 4 Visit Overview IV SITE INFORMATION INTAKE OUTPUT REASSESMENT (most recent) 01:30 06/11/24. Ambulatory to room. ( PATIENT STATES 11 PAIN. THIS STARTED WHEN SHE WOKE UP AN HAD THE PAIN. THIS PAUOL IS CHRONIC AND SHE IS UNDER THE TREATMENT OF A ORAL FACIAL SURGEON FOR THIS ISSUE. PATIENT HAS SWELLING TO LEFT LOWER ASPECT OF THE FACE THAT DOES NOT GO PAST THE JAW LINE OF THE FACE. I DID NOT APPRECIATE LYMPH NODE SWELLING AT THIS TIME.). GENERAL / NEURO / PSYCH: Alert. Oriented X 4. Appears in no acute distress. HEENT: Pharynx within normal limits. Voice within normal limits. No dental injury noted. Left buccal area: tenderness, swelling and erythema (UNABLE TO VISUALIZE ANY DENTAL CARIES AT THIS TIME.). Mucous membranes are pink. RESPIRATORY: Respirations not labored. The patient can speak in full sentences. CVS: Capillary refill less than 2 seconds. SKIN: Skin is warm. Normal skin turgor. VITAL SIGNS First Vitals Last Vitals Temp 01:20 06/11/24 99.1 F Temp 02:06/11/24 98.1 F BP 01:06/11/24 171/91 BP 02:06/11/24 158/91 HR 01:06/11/24 112 HR 02:06/11/24 95 RR 01:06/11/24 22 RR 02:06/11/24 16 O2 Sat 01:06/11/24 95% O2 Sat 02:06/11/24 93% Pain 01:06/11/24 10 Pain 02:06/11/24 7 ETCO2 01:06/11/24 ETCO2 02:06/11/24 GCS 01:06/11/24 GCS 02:06/11/24 RTS 01:06/11/24 RTS 02:06/11/24 PROCEDURES NURSING INTERVENTIONS LABS / STUDIES LABS / STUDIES ORDERED CBC w Diff 3 of 4 Visit Overview CLINICAL IMPRESSION DENTAL ABSCESS. NO SINUS TRACT OR ANDREW'S ANGINA TOOTH IMPACTION 4 of 4 Normal [facility] ED VITALS FLOW SHEETon 06-11 ED VITALS FLOW SHEET Vitals Vital Sign Flow Sheet [facility] [address] [place] [address] [id number] 06/11/2024 Patient: KYRA GRANDE Sex: Female : 1960 Age: 63y Measurements Wt: 102.1 kg, Ht/Aris: 62.0 in, BMI: 41.15 Measured Time BP MAP HR RR O2Sat ETCO2 Temp Pain GCS RTS 02:15 06/11/2024 158/91 113 95 16 93% 98.1 F 7 01:20 06/11/2024 171/91 118 112 22 95% 99.1 F 10 1 of 1 Normal [facility] CHEST 1 VIEWon 04-02-2024 CHEST [address] [address] Patient: KYRA GRANDE Phone#: : 1960 Age: 63 Gender: F Pt. Type: ER Account: [id number] Location: [facility] Ordering: CURTIS SOOD Exam Date: 04/02/2024/12:32 Family Phys: AUGUSTO TEMPLE Charge Code: [id number] Physician: [place] Order #: [id number] Dose#: PROCEDURE: X-RAY CHEST 1 VIEW COMPARISON: [facility], XR, CHEST 1 VIEW, 03/27/2023, 12:24. INDICATIONS: Cough. FINDINGS: LUNGS: Normal. No significant pulmonary parenchymal abnormalities. VASCULATURE: Normal. Unremarkable pulmonary vasculature. CARDIAC: Normal. No cardiac silhouette abnormality or cardiomegaly. MEDIASTINUM: Aortic arch calcifications PLEURA: Normal. No effusion or pleural thickening. BONES: Degenerative changes of the spine OTHER: Monitoring leads project across the CONCLUSION: No acute disease. No significant change has occurred. Dictated by: Khalida Turcios MD on 04/02/2024 at 12:48 Approved by: Khalida Turcios MD on 04/02/2024 at 12:49 Normal [facility] CORONAVIRUS (SARS) ANTIGEN T ESTon 04-02-2024 EXTERNAL QC DONE? YES Normal [facility] Comment on above: Performed By: #### 2 [id number] #### [facility],[address] [place] [address] INTERNAL CONTROL PASS Normal [facility] Comment on above: Performed By: #### 2 [id number] #### [facility],[address] [place] [address],[facility] [address] SARS ANTIGEN Negative Normal NORMAL: NEGATIVE [facility] Comment on above: Performed By: #### 2 [id number] #### [facility],[address] [place] [address] SEND TO IC? NO Normal [facility] Comment on above: Result Comment: SARS -CoV-2 THIS TEST IS BEING USED UNDER THE FDA EUA PROCEDURE. THIS ASSAY HAS BEEN VALIDATED AT [facility] FOR USE WITH NASAL AND NASOPHARYNGEAL SWAB SPECIMENS. INTERPRETIVE DATA TEST RESULTS SHOULD ALWAYS BE CONSIDERED IN THE CONTEXT OF CLINICAL OBSERVATIONS AND EPIDEMIOLOGICAL DATA IN MAKING FINAL DIAGNOSIS AND PATIENT MANAGEMENT DECISIONS. PATIENT MANAGEMENT SHOULD FOLLOW CURRENT CDC GUIDELINES. THE KIRILL SARS ANTIGEN CHARLIE DOES NOT DIFFERENTIATE BETWEEN SARS-CoV & SARS-CoV-2. A POSITIVE TEST RESULT INDICATES THE PRESENCE OF SARS-CoV-2 NUCLEOCAPSID PROTEIN ANTIGEN, AND THE PATIENT IS INFECTED WITH THE VIRUS AND PRESUMED TO BE CONTAGIOUS. A NEGATIVE TEST RESULT FOR THIS TEST MEANS THAT SARS-CoV-2 NUCLEOCAPSID PROTEIN ANTIGEN WAS NOT PRESENT IN THE SPECIMEN ABOVE THE LIMIT OF DETECTION. HOWEVER, A NEGATIVE RESULT DOES NOT RULE OUT COVID-19 AND SHOULD NOT BE USED THE SOLE BASIS FOR TREATMENT OR PATIENT MANAGEMENT DECISIONS. A NEGATIVE RESULT DOES NOT EXCLUDE THE POSSIBILITY OF COVID-19. NEGATIVE RESULTS, FROM PATIENTS WITH SYMPTOM ONSET BEYOND FIVE DAYS, SHOULD BE TREATED PRESUMPTIVE AND CONFIRMATION WITH A MOLECULAR ASSAY, IF NECESSARY, FOR PATIENT MANAGEMENT, MAY BE PERFORMED. WHEN DIAGNOSTIC TESTING IS NEGATIVE, THE POSSIBLILTY OF A FALSE NEGATIVE RESULT SHOULD BE CONSIDERED IN THE CONTEXT OF A PATIENT'S RECENT EXPOSURES AND THE PRESENCE OF CLINICAL SIGNS AND SYMPTOMS CONSISTENT WITH COVID-19. THE POSSIBILITY OF A FALSE NEGATIVE RESULT SHOULD ESPECIALLY BE CONSIDERED IF THE PATIENT'S RECENT EXPOSURES OR CLINICAL PRESENTATION INDICATE THAT COVID-19 IS LIKELY, AND DIAGNOSTIC TESTS FOR OTHER CAUSES OF ILLNESS (e.g., OTHER RESPIRATORY ILLNESS) ARE NEGATIVE. IF COVID-19 IS STILL SUSPECTED BASED ON EXPOSURE HISTORY TOGETHER WITH OTHER CLINICAL FINDINGS, RE-TESTING SHOULD BE CONSIDERED BY HEALTHCARE PROVIDERS IN CONSULTATION WITH PUBLIC HEALTH AUTHORITIES. Performed By: #### 2 [id number] #### [facility],[address] [place] [address] ED MED ADMINISTRATION DETAIL on 04-02-2024 ED MED ADMINISTRATION DETAIL Control Systems Technician Medication Administration Record [address] [address] [id number] 04/02/2024 Patient: KYRA GRANDE Sex: Female : 1960 Age: 63y MEASUREMENTS: Wt: 85.3 kg, Ht/Aris: 63.0 in, BMI: 33.30 ALLERGIES: No known drug allergies Medication Ordered Medication Administration Date/Time 1 of 1 Normal [facility] ED NURSES CLINICAL NOTEon ED NURSES CLINICAL NOTE Nurse Narrative Nurse Clinical Narrative [address] [address] [id number] 04/02/2024 Patient: KYRA GRANDE Sex: Female : 1960 Age: 63y Primary Insurance: [employer] OUTPATIENT Policy Number: [id number] Group Number: [id number] Subscriber: Other Disposition: Discharge Disposition Decision Time: 13:24 04/02/2024 Departure Time: 13:30 04/02/2024 TRIAGE Arrived by private vehicle. Historian: (patient). Accompanied by family. Patient has a primary care physician. Primary physician (windy). Triage time: 12:15 04/02/2024. Acuity: LEVEL 3. Chief Complaint: COUGH. Onset. (saturday evening). SEPSIS SCREEN: NEGATIVE. SIRS criteria negative. No possible sources of infection. -- 12:04/02/24 JOSE E Gonzalez R.N. 12:04/02/24. BP: 170/102 MAP: 125. HR: 80. RR: 18. O2 saturation: 98% Temperature: 98.7 F. Pain level now 0/10. -- 12:04/02/24 JOSE E Gonzalez R.N. Measurements: 12:25 Wt: 85.3 kg, Ht/Aris: 63.0 in, BMI: 33.30 -- 04/02/24 JOSE E Gonzalez R.N. Medications: nitroglycerin 0.4 mg sublingual tablet -- 12:04/02/24 JOSE E Gonzalez R.N. 1 of 4 Nurse Narrative metoprolol succinate ER 100 mg tablet,extended release 24 hr -- 12:04/02/24 JOSE E Gonzalez R.N. aspirin 81 mg tablet,delayed release -- 12:04/02/24 JOSE E Gonzalez R.N. pramipexole 0.125 mg tablet -- 12:04/02/24 JOSE E Gonzalez R.N. atorvastatin 80 mg tablet -- 12:04/02/24 JOSE E Gonzalez R.N. cilostazol 50 mg tablet -- 12:04/02/24 JOSE E Gonzalez R.N. lisinopril 20 mg tablet -- 12:04/02/24 JOSE E Gonzalez R.N. clopidogrel 75 mg tablet -- 12:04/02/24 JOSE E Gonzalez R.N. dicyclomine 20 mg tablet -- 12:04/02/24 JOSE E Gonzalez R.N. glipizide ER 5 mg tablet, extended release 24 hr -- 12:04/02/24 JOSE E Gonzalez R.N. Mounjaro 7.5 mg/0.5 mL subcutaneous pen injector -- 12:04/02/24 JOSE E Gonzalez R.N. allopurinol 300 mg tablet -- 12:04/02/24 JOSE E Gonzalez R.N. Allergies: no known drug allergies -- 12:04/02/24 JOSE E Gonzalez R.N. Problems: Myocardial Infarction -- 12:04/02/24 JOSE E Gonzalez R.N. Hypertension -- 12:04/02/24 JOSE E Gonzalez R.N. Diabetes Mellitus -- 12:04/02/24 JOSE E Gonzalez R.N. Celiac Disease -- 12:16 04/02/24 JOSE E Gonzalez R.N. Hyperlipidemia -- 12:16 04/02/24 JOSE E Gonzalez R.N. CVA - Cerebrovascular Accident -- 12:17 04/02/24 JOSE E Gonzalez R.N. ADDITIONAL SURGERIES: Cardiac Catheterization -- 12:17 04/02/24 JOSE E Gonzalez R.N. Hysterectomy -- 12:17 04/02/24 JOSE E Gonzalez R.N. Cholecystectomy -- 12:17 04/02/24 JOSE E Gonzalez R.N. Carotid Surgery -- 12:17 04/02/24 JOSE E Gonzalez R.N. History 12:15 04/02/24. SOCIAL HX: Never smoker. No alcohol use or drug use. The patient has not traveled outside the [place] Infectious disease exposure: No infectious disease exposure. ABUSE ASSESSMENT: Abuse denied. 2 of 4 Nurse Narrative SELF HARM ASSESSMENT: Self harm assessment was performed. The patient answered no to the question(s) Do you have thoughts of harming or killing yourself? and Do you have a plan for harming or killing yourself?. FALL RISK ASSESSMENT: Fall risk assessment completed. No risk factors identified. -- 12:19 04/02/24 JOSE E Gonzalez R.N. Interventions 12:15 04/02/24. Advanced care plan discussed with patient. Patient does not have advanced directive. -- 12:19 04/02/24 JOSE E Gonzalez R.N. PHYSICAL ASSESSMENT 12:55 04/02/24. GENERAL / NEURO / PSYCH: Alert. Appears in no acute distress. HEENT: Pupils equal, round and reactive to light. RESPIRATORY: Nonproductive cough. Breath sounds within normal limits. ( Patient states that she feels burning in her lungs with deep breathing). CVS: Normal sinus rhythm noted. Cardiac rhythm: normal sinus rhythm. Capillary refill less than 2 seconds. SKIN: Skin is warm and dry. Normal skin turgor. -- 13:10 04/02/24 JOSE E Pereyra R.N. NURSING PROGRESS NOTES 12:18 04/02/24. 12-LEAD EKG: EKG time: (12:18 04/02/2024). 12-Lead EKG was ordered, performed by a central supply tech and shown to the ED physician. -- 12:23 04/02/24 JOSE E Pereyra R.N. 12:22 04/02/24. ED physician at the patient's bedside. -- 12:22 04/02/24 JOSE E Pereyra R.N. 12:40 04/02/24. Patient transported to radiology. (Xray at bedside). -- 13:04 04/02/24 JOSE E Peryera R.N. DISPOSITION / DISCHARGE 13:20 04/02/24. RR: 16. Temperature: Deferred . Pain level now 0/10. -- 13:33 04/02/24 JOSE E Pereyra R.N. 13:21 04/02/24. BP: 112/66 MAP: 81 mmHg. HR: 72 bpm. -- 13:04/02/24 JOSE E Pereyra R.N. 13:24 04/02/24. HR: 73 bpm. O2 saturation: 97%. -- 13:33 04/02/24 JOSE E Pereyra R.N. Cardiac rhythm: normal sinus rhythm. Departure time: (more content not included)... Normal [facility] ED ORDER SHEET (CPOE ONLY)on 04-02-2024 ED ORDER SHEET (CPOE ONLY) Order Sheet Order Sheet [address] [address] [id number] 04/02/2024 Patient: KYRA GRANDE Sex: Female : 1960 Age: 63y MEASUREMENTS: Wt: 85.3 kg, Ht/Aris: 63.0 in, BMI: 33.30 ALLERGIES: No known drug allergies MEDICATION/IV/DRIP/FLUI D ORDERS Order Description Priority Entered Acknowledged Completed LAB ORDERS Order Description Priority Entered Acknowledged Collected Completed Rapid COVID (SARS) Stat 12:23 04/02/2024 12:24 04/02/2024 12:30 04/02/2024 ANTIGEN TEST Stat Curtis Pereyra, Jim Aviles D.O. R.N. RKhai Flu Swab (Influenzae Stat 12:23 04/02/2024 12:24 04/02/2024 12:30 04/02/2024 AAg) Stat Nata Smith Lemasters, D.O. R.N. RKhai DIAGNOSTIC STUDY ORDERS Order Description Priority Entered Acknowledged Completed Chest 1V Stat Stat 12:23 04/02/2024 12:24 12:52 Curtis Sood, 04/02/2024 04/02/2024 Nata Louis R.N. R.N. 1 of 2 Order Sheet Reason for Study: Cough STAFF ORDERS Order Description Priority Entered Acknowledged Collected Completed [Electronically signed by Curtis Sood D.O. (04/02/2024 13:26 EST)] 2 of 2 Normal [facility] ED PHYSICIAN CLINICAL REPORT on 04-02-2024 ED PHYSICIAN CLINICAL REPORT Narrative Physician Clinical Narrative [address] [address] [id number] 04/02/2024 Patient: KYRA GRANDE Sex: Female : 1960 Age: 63y Primary Insurance: [employer] OUTPATIENT Policy Number: [id number] Group Number: [id number] Subscriber: Other Disposition: Discharge Disposition Decision Time: 13:24 04/02/2024 Measurements Wt: 85.3 kg, Ht/Aris: 63.0 in, BMI: 33.30 Initial Vital Sign Measured Time BP MAP HR RR O2Sat ETCO2 Temp Pain GCS RTS 12:22 04/02/2024 170/102 125 80 18 98% 98.7 F 0 Time Seen: 12:20 04/02/2024. Arrived- By private vehicle. Historian- patient. Independent historian- family. HISTORY OF PRESENT ILLNESS Chief Complaint: COUGH. This started 2 days. The patient has had a cough and chest discomfort. (Patient with cough chest tightness. Consistent with previous episodes of bronchitis. Patient states that she had a fever 2 days ago which has since resolved. Also vomited at that same time which has since resolved. Denies any shortness of breath, abdominal pain, urinary symptoms.). REVIEW OF SYSTEMS NEUROLOGICAL: No headache. GI: No abdominal pain. 1 of 10 Narrative PAST HISTORY Celiac Disease CVA - Cerebrovascular Accident Diabetes Mellitus Hyperlipidemia Hypertension Myocardial Infarction Surgeries: Cardiac Catheterization Carotid Surgery Cholecystectomy Hysterectomy Medications: allopurinol 300 mg tablet aspirin 81 mg tablet,delayed release atorvastatin 80 mg tablet cilostazol 50 mg tablet clopidogrel 75 mg tablet dicyclomine 20 mg tablet glipizide ER 5 mg tablet, extended release 24 hr lisinopril 20 mg tablet metoprolol succinate ER 100 mg tablet,extended release 24 hr Mounjaro 7.5 mg/0.5 mL subcutaneous pen injector nitroglycerin 0.4 mg sublingual tablet pramipexole 0.125 mg tablet Allergies: no known drug allergies SOCIAL HISTORY No alcohol use or drug use. 2 of 10 Narrative ADDITIONAL NOTES The nursing notes have been reviewed. PHYSICAL EXAM Vital Signs: Have been reviewed. Appearance: Alert. No acute distress. Eyes: Pupils equal, round and reactive to light. Eyes normal inspection. ENT: Pharynx normal. Uvula midline. Neck: Normal inspection. Neck supple. CVS: Normal heart rate and rhythm. Heart sounds normal. Pulses normal. Respiratory: No respiratory distress. Breath sounds normal. Skin: Skin warm and dry. Normal skin color. Extremities: No lower extremity edema. LABS, X-RAYS, AND EKG 12-LEAD EKG: EKG time: 12:17 04/02/2024. Normal sinus rhythm. Rate: 76. Normal P waves. Normal QRS complex. Non-specific ST segment / T wave abnormalities. The study has been interpreted contemporaneously by me. Interpretation time: 12:20 04/02/2024. Chest X-ray: No acute disease. The X-rays were independently viewed by me and interpreted by the radiologist. Laboratory Tests: CORONAVIRUS (SARS) ANTIGEN TEST Final ARNIE: 04/02/2024 12:26:00 EST MsgRcvd: 04/02/2024 13:05 EST Lab Test Result Reference Status Received Comments NORMAL: 04/02/2024 SARS ANTIGEN NEGATIVE Final NEGATIVE 13:05 EST INTERNAL 04/02/2024 PASS Final CONTROL 13:05 EST 3 of 10 Narrative Lab Test Result Reference Status Received Comments EXTERNAL QC 04/02/2024 YES Final DONE? 13:05 EST 4 of 10 Narrative Lab Test Result Reference Status Received Comments SARS-CoV-2 THIS TEST IS BEING USED UNDER THE FDA EUA PROCEDURE. THIS ASSAY HAS BEEN VALIDATED AT [facility] FOR USE WITH NASAL AND NASOPHARYNGEAL SWAB SPECIMENS. INTERPRETIVE DATA TEST RESULTS SHOULD ALWAYS BE CONSIDERED IN THE CONTEXT OF CLINICAL OBSERVATIONS AND EPIDEMIOLOGICAL DATA IN MAKING FINAL DIAGNOSIS AND PATIENT MANAGEMENT DECISIONS. PATIENT MANAGEMENT SHOULD FOLLOW CURRENT CDC 5 of 10 GUIDELINES. THE KIRILL SARS ANTIGEN CHARLIE DOES Narrative INFLUENZA VIRUS RAPID A/B Final ARNIE: 04/02/2024 12:26:00 EST MsgRcvd: 04/02/2024 13:05 EST Lab Test Result Reference Status Received Comments NEGATIVE 04/02/2024 INFLUENZA A Final [NEGATIVE 13:05 EST NEGATIVE 04/02/2024 INFLUENZA B Final [NEGATIVE 13:05 EST INTERNAL 04/02/2024 PASS Final NEG QC 13:05 EST INTERNAL 04/02/2024 PASS Final POS QC 13:05 EST EXTERNAL QC 04/02/2024 YES Final DONE? 13:05 EST 6 of 10 Narrative Lab Test Result Reference Status Received Comments A NEGATIVE TEST RESULT DOES NOT EXCLUDE INFECTION WITH INFLUENZA A OR B. THEREFORE, THE RESULTS OBTAINED FROM THIS FLU TEST SHOULD BE USED IN CONJUCTION WITH CLINICAL FINDINGS TO MAKE AN ACCURATE DIAGNOSIS. A POSITIVE RESULT DOES NOT RULE OUT CO-INFECTIONS WITH OTHER PATHOGENS OR IDENTIFY ANY SPECIFIC INFLUENZA A VIRU (more content not included)... Normal [facility] ED SUPER BILLon 04-02-2024 ED SUPER BILL [address] [address] [id number] 04/02/2024 Patient: KYRA GRANDE Sex: Female : 1960 Age: 63y Item Professional Category Description Facility Code Code Quantity Fee Total Nurse/E/M EMERGENCY 141952 1 $0.00 $0.00 DEPARTMENT VISIT HIGH/URGENT SEVERITY (20200-29) Grand Total $0.00 Providers Curtis Sood D.O. Chief Complaint COUGH. Principal Diagnosis Bronchitis. ICD-10 Codes 1 of 2 [facility] J40: Bronchitis, not specified as acute or chronic 2 of 2 Normal [facility] ED VISIT SUMMARYon ED VISIT SUMMARY Visit Overview Visit Overview [address] [address] [id number] 04/02/2024 Patient: KYRA GRANDE Sex: Female : 1960 Age: 63y 04/02/2024 01:34 PM EST ED Arrival:12:12 04/02/2024 EST Status: Recent Travel:no Language:eng Adv Directive:No Isolation Status: Ethnicity:N Fall Risk:no risk Infectious Disease Exposure:no Measurements:5'3 / 160.0 Self-Harm Status:no risk Sepsis Screen:negative cm 188.0 lb / 85.3 kg Chief Complaint:COUGH, (windy), and (saturday evening) ALLERGIES No Known Drug Allergies HOME MEDICATIONS allopurinol 300 mg tablet aspirin 81 mg tablet,delayed release atorvastatin 80 mg tablet cilostazol 50 mg tablet clopidogrel 75 mg tablet dicyclomine 20 mg tablet glipizide ER 5 mg tablet, extended release 24 hr 1 of 3 Visit Overview lisinopril 20 mg tablet metoprolol succinate ER 100 mg tablet,extended release 24 hr Mounjaro 7.5 mg/0.5 mL subcutaneous pen injector nitroglycerin 0.4 mg sublingual tablet pramipexole 0.125 mg tablet PAST MEDICAL HISTORY / PROBLEMS Celiac Disease CVA - Cerebrovascular Accident Diabetes Mellitus Hyperlipidemia Hypertension Myocardial Infarction PAST SURGICAL HISTORY Cardiac Catheterization Carotid Surgery Cholecystectomy Hysterectomy SOCIAL HISTORY Smoking status: No Alcohol use: No Drug use: No ED COURSE MEDICATIONS GIVEN IN EMERGENCY DEPARTMENT IV SITE INFORMATION INTAKE OUTPUT REASSESMENT (most recent) 2 of 3 Visit Overview 12:55 04/02/24. GENERAL / NEURO / PSYCH: Alert. Appears in no acute distress. HEENT: Pupils equal, round and reactive to light. RESPIRATORY: Nonproductive cough. Breath sounds within normal limits. ( Patient states that she feels burning in her lungs with deep breathing). CVS: Normal sinus rhythm noted. Cardiac rhythm: normal sinus rhythm. Capillary refill less than 2 seconds. SKIN: Skin is warm and dry. Normal skin turgor. VITAL SIGNS First Vitals Last Vitals Temp 12:22 04/02/24 98.7 F Temp 13:04/02/24 BP 12:04/02/24 170/102 BP 13:04/02/24 HR 12:22 02/13/25 80 HR 13:29 04/02/24 81 RR 12:22 04/02/24 18 RR 13:29 04/02/24 O2 Sat 12:22 04/02/24 98% O2 Sat 13:29 04/02/24 96% Pain 12:22 04/02/24 0 Pain 13:29 04/02/24 ETCO2 12:22 04/02/24 ETCO2 13:29 04/02/24 GCS 12:22 04/02/24 GCS 13:29 04/02/24 RTS 12:22 04/02/24 RTS 13:29 04/02/24 PROCEDURES NURSING INTERVENTIONS LABS / STUDIES LABS / STUDIES ORDERED Chest 1V Flu Swab (Influenzae AAg) Rapid COVID (SARS) ANTIGEN TEST CLINICAL IMPRESSION BRONCHITIS 3 of 3 Normal [facility] ED VITALS FLOW SHEETon 04-02 ED VITALS FLOW SHEET Vitals Vital Sign Flow Sheet [address] [place] [address] [id number] 04/02/2024 Patient: KYRA GRANDE Sex: Female : 1960 Age: 63y Measurements Wt: 85.3 kg, Ht/Aris: 63.0 in, BMI: 33.30 Measured Time BP MAP HR RR O2Sat ETCO2 Temp Pain GCS RTS 13:29 04/02/2024 81 96% 13:24 04/02/2024 73 97% 13:21 04/02/2024 112/66 81 72 13:20 04/02/2024 16 0 13:19 04/02/2024 80 95% 13:14 04/02/2024 77 96% 13:09 04/02/2024 74 96% 13:07 04/02/2024 101/63 75 77 13:04 04/02/2024 80 94% 12:59 04/02/2024 75 94% 12:54 04/02/2024 77 95% 12:52 04/02/2024 116/75 88 81 12:49 04/02/2024 79 96% 12:44 04/02/2024 86 95% 12:39 04/02/2024 78 97% 1 of 2 Vitals Measured Time BP MAP HR RR O2Sat ETCO2 Temp Pain GCS RTS 12:37 04/02/2024 130/77 99 82 12:34 04/02/2024 77 96% 12:29 04/02/2024 85 98% 12:22 04/02/2024 170/102 125 80 18 98% 98.7 F 0 2 of 2 Normal [facility] INFLUENZA VIRUS RAPID A/Bon 04-02-2024 INFLUENZA VIRUS RAPID A/B INFLUENZA A NEGATIVE INFLUENZA B NEGATIVE INTERNAL NEG QC PASS INTERNAL POS QC PASS EXTERNAL QC DONE? YES SEND TO IC? NO A NEGATIVE TEST RESULT DOES NOT EXCLUDE INFECTION WITH INFLUENZA A OR B. THEREFORE, THE RESULTS OBTAINED FROM THIS FLU TEST SHOULD BE USED IN CONJUCTION WITH CLINICAL FINDINGS TO MAKE AN ACCURATE DIAGNOSIS. A POSITIVE RESULT DOES NOT RULE OUT CO-INFECTIONS WITH OTHER PATHOGENS OR IDENTIFY ANY SPECIFIC INFLUENZA A VIRUS SUBTYPE.CO-INFECTION WITH INFLUENZA A AND B IS RARE. IT IS RECOMMENDED THAT DUAL POSITIVE RESULTS BE CONFIRMED BY VIRAL CULTURE OR AN FDA-CLEARED INFLUENZA A AND B MOLECULAR ASSAY. INDIVIDUALS WHO HAVE RECEIVED NASALLY ADMINISTERED INFLUENZA A VACCINE MAY TEST POSITIVE IN COMMERCIALLY AVAILABLE INFLUENZA RAPID DIAGNOSTIC TESTS FOR UP TO THREE DAYS. RESULT CRITICAL? NO Normal [facility] Comment on above: Performed By: #### 2 [id number] ####[facility],[address] [place] [address] t-Transglutaminase IgAon tTG IGA TNP Normal [facility] Comment on above: Performed By: #### L 3410.2400, L3410.2970, L3410.9999, L3410.2920 #### [facility] [address] [place], [address] Celiac Disease Profileon ENDOMYSIAL IGA Negative Normal Negative [facility] Comment on above: Performed By: #### L 3410.2400, L3410.2970, L3410.9999, L3410.2920 #### [facility] [address] [place], [address] IMMUNOGLOB A QN 238 mg/dL Normal 87-352 [facility] Comment on above: Performed By: #### L 3410.2400, L3410.2970, L3410.9999, L3410.2920 #### [facility] [address] [place], [address] tTG IGA <2 Normal 0-3 [facility] Comment on above: Result Comment: Nega tive 0 - 3 Weak Positive 4 - 10 Positive >10 Tissue Transglutaminase (tTG) has been identified as the endomysial antigen. Studies have demonstr- ated that endomysial IgA antibodies have over 99% specificity for gluten sensitive enteropathy. Performed By: #### L 3410.2400, L3410.2970, L3410.9999, L3410.2920 #### [facility] [address] [place], [address] t-Transglutaminase IgGon tTG IGG 2 U/mL Normal 0-5 [facility] Comment on above: Result Comment: Nega tive 0 - 5 Weak Positive 6 - 9 Positive >9 Performed at: - [facility] [address] [id number] Plate Filler: Dieudonne Ohara PhD, Phone: [phone] Performed By: #### L 3410.2400, L3410.2970, L3410.9999, L3410.2920 #### [facility] [address] [place], [address] L3410.9999on 03-14-2024 [facility]. COMMENT Normal . [facility] Comment on above: Order Comment: [id number] DGP TIGER RT Result Comment: Test Ordered: [id number] Celiac Ab tTG DGP TIgA Immunoglobulin A, Qn, Serum 244 mg/dL CB Reference Range: 87-352 Deamidated Gliadin Abs, IgA 3 units CB Reference Range: 0-19 Negative 0 - 19 Weak Positive 20 - 30 Moderate to Strong Positive >30 Deamidated Gliadin Abs, IgG 3 units CB Reference Range: 0-19 Negative 0 - 19 Weak Positive 20 - 30 Moderate to Strong Positive >30 t-Transglutaminase (tTG) IgA <2 U/mL CB Reference Range: 0-3 Negative 0 - 3 Weak Positive 4 - 10 Positive >10 Tissue Transglutaminase (tTG) has been identified as the endomysial antigen. Studies have demonstr- ated that endomysial IgA antibodies have over 99% specificity for gluten sensitive enteropathy. t-Transglutaminase (tTG) IgG <2 U/mL Reference Range: 0-5 Negative 0 - 5 Weak Positive 6 - 9 Positive >9 Performed at: - [facility] [id number] Plate Filler: Dieudonne Ohara PhD, Phone: [phone] Performed By: #### L 0524.0168, O4629.4551, L3003.3843, L3843.9803 #### [facility] [address] [place], [address] Gastroenterology Visit Repor ton 03-12-2024 Gastroenterology Visit Report [facility] Gastroenterology [address] [place] [address] OFFICE VISIT Date of Service: 03/12/24 MR#: [id number] Acct: [id number] Name: KYRA GRANDE ALEX Rep #: [id number] : 1960 Provider: JUAN gallardo Age/Sex: 63/F Location: [facility] [place].[facility] Status: Signed Intake Vital Signs 02/05/24 14:38 02/21/24 05:49 03/12/24 10:47 Height 5 ft 4 in 5 ft 3 in 5 ft 3 in Weight: 194 lb 6 oz BMI 34.4 BP 148/89 H Respiration 16 Pulse 84 Pulse Oximetry (%) 96 Oxygen Delivery Method room air Intake Visit Reasons: 1 M FU Chief Complaint: vomiting and diarrhea Allergies No Known Allergies Allergy (Verified 02/21/24 05:49) Nurse's Note: Nausea and vomiting less often. Still incontinent of bowel without notice. Imodium helps alittle but not enough. [facility] Medical History GERD (gastroesophageal reflux disease) Reflux esophagitis Kidney stones High cholesterol Generalized headaches Gout IBS (irritable bowel syndrome) Back problem Wears glasses Post-menopausal CAD (coronary artery disease) Anemia Back pain Migraine headache Syncope Dietary restriction History of IBS Former smoker Shortness of breath on exertion BiPAP (biphasic positive airway pressure) dependence History of echocardiogram History of stress test Cardiology follow-up encounter History of heart attack Hypercholesteremia Diabetes Hypertension Stroke/cerebrovascular accident Surgical History History of left-sided carotid endarterectomy History of cardiac catheterization Hx of tonsillectomy Hx of hysterectomy History of coronary artery stent placement Family History Other Asthma Breast cancer CAD (coronary artery disease) Cancer Cervical cancer Colon cancer Heart disease Kidney disease Myocardial infarction Ovarian cancer Social History Smoking Status: Former smoker how long ago did patient quit smokin yrs alcohol intake: never substance use type: does not use HPI HPI Chief Complaint: vomiting and diarrhea Details: KYRA GRANDE, is a 63 F who presents to the office today for Please advise patient labs reveal Fe deficiency and with mild duodenal villous blunting seen on upper endoscopy pathology I recommend she have labs for celaic disease. Order placed. O P negative. Fecal calprotectin is normal. She should f/u in the office 1 week after having labs completed and we will review all findings and recommendations. 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 ROS Const Constitutional: Positive for fatigue; No fever(s) or weight change ENT ENT: Positive for difficulty swallowing Cardio Cardiology: Positive for leg pain with exertion Gastro GI: Positive for abdominal pain, bloating, diarrhea, heartburn, difficulty swallowing and nausea/dyspepsia; No belching, change in bowel habits, change in stool character, coffee ground emesis, constipation, cramping, feeling full early, excessive flatus, incontinent of stools, Vomiting blood/hematemesis, Blood in stool, loose stools, Black,tarry stools, pain with swallowing, vomiting or other Musc Musculoskeletal: Positive for joint pain, back pain, numbness, tingling, restless legs, leg pain at night and leg pain with exertion Skin Skin: Positive for dry skin and itchy eyes; No yellowing of the eye Neuro Neurology: Positive for numbness, tingling and restless legs Psych Psychiatric: Positive for anxiety and No depression Endo Endocrine: Positive for fatigue; No weight change Aller/Imm Allergy/Immunologic: Positive for itchy eyes Hussain/Lymp Hematologic/Lymphatic: No easy bleeding or easy bruising Exam Const General: cooperative, healthy appearing, no acute distress and well developed Nutritional Appearance: well nourished Orientation: alert and oriented x3 HENNV Head: normocephalic Ears: hearing grossly normal bilaterally Mouth: moist mucous membranes Teeth and gingiva: dentition normal Eyes Conjunctivae: conjunctivae normal Sclera: sclerae normal Neck Neck: normal visual inspection, full ROM and trachea midline Resp Effort Inspection: normal respiratory effort, able to speak in complete sentences and symmetric chest movement Neuro General: patient alert and patient oriented x3 Cranial Nerves: other (CN's grossly intact, non-focal exam) Cognition: normal cognition Speech: speech normal G (more content not included)... Normal [facility] CELIAC COMPREHENSIVE PANEL [ CCL]on 03-05-2024 Celiac Category Category 3 Normal [facility] Comment on above: Result Comment: ROMI DON DQ HAPLOTYPE RELATIVE RISK Category 7 DQ2.2 AND DQ2.5 Extremely High Category 7 DQ2.5 AND DQ2.5 Extremely High Category 6 DQ2.2 AND DQA1*05, DQB1*03:01 Very High Category 5 DQ2.2 AND DQ8 Very High Category 5 DQ2.5 AND DQ8 Very High Category 4 DQ8 AND DQ8 High Category 3 DQ2.5 AND DQA1*05, DQB1*03:01 High Category 3 DQ2.5 AND DQA1*02:01, DQB1*03:03 High Category 3 DQ2.5 AND DQA1*03, DQB1*02 High Category 3 DQ2.5 AND OTHER LOW RISK ALLELE High Category 3 DQ2.2 AND DQA1*05, DQB1*03:03 High Category 2 DQ8 AND OTHER LOW RISK ALLELE Moderate Category 1 DQ2.2 AND OTHER LOW RISK ALLELE Low Category 0 NEGATIVE FOR DQ2.2 Negative Category 0 NEGATIVE FOR DQ2.5 Negative Category 0 NEGATIVE FOR DQ8 Negative DQ2.2 = DQA1*02:01, DQB1*02:02 DQ2.5 = DQA1*05, DQB1*02:01 DQ8 = DQA1*03, DQB1*03:02 The identification of one of these HLA-DQ genotypes is not, by itself, sufficient for the diagnosis of celiac disease, since both DQ2 and DQ8 are relatively common in the general population. The strongest reported HLA associations with celiac disease include DQ2 (DQ2.5 or DQA1*05-DQB1*02:01 T DQA2.2 or DQA1*02:01-DQB1*02:02) and DQ8 (DQA1*03:01/DQB1*03:02). This test is useful for family members of celiac patients and patients with negative serology results. This testing can rule out celiac disease with high negative predictive value (NPV) of 95-100% depending on the ethnic background. In cases of an ambiguous HLA allele assignment where multiple rare alleles cannot be excluded, the most common HLA allele is reported. References: 1. Choco L, Leroy J, Jinny K, et al. Cost-effective HLA typing with tagging SNPs predicts celiac disease risk haplotypes in the [place], [place] and [place] populations. Immunogenetics. 2009 May;61(4):247-56. 2. Brayden HAMEED. Celiac disease: dissecting a complex inflammatory disorder. Gavi Rev Immunol. 2002 Oct;2(9):647-55. 3. Leonard E, Lonnie HS, Milana CA, et al. Risk of pediatric celiac disease according to HLA haplotype and country. N Engl J Med. 2014 ;371(1):42-9. HLA typing performed by PCR-RSSOP and/or NGS. This test was developed and its performance characteristics determined by [employer]. The test has not been cleared or approved by the [place] FDA. However, FDA approval was not necessary since this lab is certified under CLIA for high complexity testing. Test performed by: [email or web address], [facility] Desk [facility] [place] [address]. CLIA [id number]. Performed By: #### 2 [id number] #### [facility],[address] [place] [address] Celiac RiskHaplotype Positive Normal [facility] Comment on above: Performed By: #### 2 [id number] #### [facility],[address] [place] [address] GLIAD DEAMIDATED IGA QUAL Negative Normal Negative, Test not Indica [facility] Comment on above: Result Comment: This is used as an aid in diagnosis of celiac disease. Clinical correlation is required. The following results were obtained with an [employer] QUANTA Lite Gliadin IgA TISHA Gliadin. Gliadin IgA values obtained with different manufacturers' assay methods may not be used interchangeably. The magnitude of the reported IgA levels cannot be correlated to an endpoint titer. Performed By: #### 2 93717 #### [facility],[address] [place] [address] Gliad IgA Ab 3 Units Normal <20 [facility] Comment on above: Performed By: #### 2 96235 #### [facility],[address] [place] [address] HLA-DQA1 Genotype HLA-DQA1*: 05, 05 Normal [facility] Comment on above: Performed By: #### 2 40429 #### [facility],[address] [place] [address] HLA-DQB1 Genotype HLA-DQB1*: 02:01, 03 Normal [facility] Comment on above: Performed By: #### 2 76420 #### [facility],[address] [place] [address] IgA [Mass/Vol] 230 mg/dL Normal 70-400 [facility] Comment on above: Performed By: #### 2 [id number] #### [facility],[address] [place] [address] Interpretation No serological evide nce of celiac disease, however, if celiac disease is clinica Normal [facility] Comment on above: Performed By: #### 2 92040 #### [facility],[address] [place] [address] Transglutaminase IgA Abs <2 Normal <4 [facility] Comment on above: Performed By: #### 2 57805 #### [facility],[address] [place] [address] Transglutaminase IgA AbsInterpretation Negative Normal Negative [facility] Comment on above: Result Comment: The following results were obtained with [employer] QUANTA Lite R h-tTG IgA TISHA.???R h-tTG IgA values obtained with different manufacturers' assay methods may not be used interchangeably. The magnitude of the reported IgA levels cannot be corelated to an endpoint???concentration. This is used as an aid in diagnosis of celiac disease. Clinical correlation is required. Performed By: #### 2 73358 #### [facility],[address] [place], [place] [id number] Bedside Glucoseon 02-21-2024 FINGERSTICK GLU 180 mg/dL High 74-106 [facility] Comment on above: Result Comment: CELI JUSTIN OF PATIENT CARE PER NURSING PROTOCOL Performed By: #### L 501.080 #### [facility] [address] [place], [address] Colonoscopy Reporton 025 Colonoscopy Report [facility] Medical Records Department [address] [place] [address] Colonoscopy Report MR#: [id number] Acct: [id number] Name: KYRA GRANDE ALEX Rep #: [id number] : 1960 63 From: Thor Galdamez DO PCP: JUAN Tidwell Status:REG [facility] Patient Name: Kyra Grande Procedure Date: 02/21/2024 7:01 AM Date of : 1960 Age: 63 Procedure: Colonoscopy Indications: Clinically significant diarrhea of unexplained origin Providers: Thor Galdamez DO Referring MD: Juan Tidwell Medicines: Monitored Anesthesia Care Patient Profile: This is a 63 year old female. Refer to note in patient chart for documentation of history and physical. Patient has symptoms of acute abdominal cramping, acute abdominal distention, acute nausea, chronic nausea and acute vomiting. Last Colonoscopy: more than 10 years ago. Complications: No immediate complications. Procedure: Pre-Anesthesia Assessment: - Prior to the procedure, a History and Physical was performed, and patient medications and allergies were reviewed. The patient is competent. The risks and benefits of the procedure and the sedation options and risks were discussed with the patient. All questions were answered and informed consent was obtained. Patient identification and proposed procedure were verified by the physician in the pre-procedure area. Mental Status Examination: alert and oriented. Airway Examination: normal oropharyngeal airway and neck mobility. Respiratory Examination: clear to auscultation. CV Examination: normal. Prophylactic Antibiotics: The patient does not require prophylactic antibiotics. Prior Anticoagulants: The patient has taken no anticoagulant or antiplatelet agents except for NSAID medication. ASA Grade Assessment: II - A patient with mild systemic disease. After reviewing the risks and benefits, the patient was deemed in satisfactory condition to undergo the procedure. The anesthesia plan was to use monitored anesthesia care (MAC). Immediately prior to administration of medications, the patient was re-assessed for adequacy to receive sedatives. The heart rate, respiratory rate, oxygen saturations, blood pressure, adequacy of pulmonary ventilation, and response to care were monitored throughout the procedure. The physical status of the patient was re-assessed after the procedure. After I obtained informed consent, the scope was passed under direct vision. Throughout the procedure, the patient's blood pressure, pulse, and oxygen saturations were monitored continuously. The Colonoscope was introduced through the anus and advanced to the terminal ileum. The colonoscopy was performed without difficulty. The patient tolerated the procedure well. The quality of the bowel preparation was fair. The terminal ileum, ileocecal valve, appendiceal orifice, and rectum were photographed. Scope In: 7:02:12 AM Scope Withdrawal Time 0 hours 11 minutes 19 seconds Scope Out: 7:16:18 AM Total Procedure Duration Time 0 hours 14 minutes 6 seconds Findings: The perianal and digital rectal examinations were normal. Stool was found in the rectum, in the recto-sigmoid colon, in the sigmoid colon, in the transverse colon and in the ascending colon. An area of mildly congested mucosa was found in the recto-sigmoid colon, in the sigmoid colon and in the descending colon. Biopsies were taken with a cold forceps for histology. Verification of patient identification for the specimen was done. Estimated blood loss was minimal. A patchy area of the distal ileum and terminal ileum was congested. Biopsies were taken with a cold forceps for histology. Verification of patient identification for the specimen was done. Estimated blood loss was minimal. Impression: - Preparation of the colon was fair. - Stool in the rectum, in the recto-sigmoid colon, in the sigmoid colon, in the transverse colon and in the ascending colon. - Congested mucosa in the recto-sigmoid colon, in the sigmoid colon and in the descending colon. Biopsied. - Congested mucosa in the distal ileum and in the terminal ileum. Biopsied. Recommendation: - Patient has a contact number available for emergencies. The signs and symptoms of potential delayed complications were discussed with the patient. Return to normal activities tomorrow. Written discharge instructions were provided to the patient. - Resume previous diet. - Continue present medications. - Await pathology results. - Repeat colonoscopy in 5 years because the bowel preparation was poor and for surveillance. Procedure Code(s): --- Professional --- 79171, Colonoscopy, flexible; with biopsy, single or multiple CPT copyright 2021 [employer]. All rights reserved. The codes documented in this report are preliminary and upon auto parker revie (more content not included)... Normal [facility] EGD Reporton 02-21-2024 EGD Report [facility] Medical Records Department [address] [place] [address] EGD Report MR#: [id number] Acct: [id number] Name: KYRA GRANDE ALEX Rep #: [id number] : 1960 63 From: Thor Galdamez DO PCP: JUAN Tidwell Status:REG [facility] Patient Name: Kyra Grande Procedure Date: 02/21/2024 6:18 AM Date of : 1960 Age: 63 Procedure: Upper GI endoscopy Indications: Epigastric abdominal pain Providers: Thor Galdamez DO Referring MD: Juan Tidwell Medicines: Monitored Anesthesia Care Patient Profile: This is a 63 year old female. Refer to note in patient chart for documentation of history and physical. Patient has symptoms of acute abdominal cramping, acute abdominal distention, acute nausea, chronic nausea and acute vomiting. Complications: No immediate complications. Procedure: Pre-Anesthesia Assessment: - Prior to the procedure, a History and Physical was performed, and patient medications and allergies were reviewed. The patient is competent. The risks and benefits of the procedure and the sedation options and risks were discussed with the patient. All questions were answered and informed consent was obtained. Patient identification and proposed procedure were verified by the physician in the pre-procedure area. Mental Status Examination: alert and oriented. Airway Examination: normal oropharyngeal airway and neck mobility. Respiratory Examination: clear to auscultation. CV Examination: normal. Prophylactic Antibiotics: The patient does not require prophylactic antibiotics. Prior Anticoagulants: The patient has taken no anticoagulant or antiplatelet agents except for NSAID medication. ASA Grade Assessment: II - A patient with mild systemic disease. After reviewing the risks and benefits, the patient was deemed in satisfactory condition to undergo the procedure. The anesthesia plan was to use monitored anesthesia care (MAC). Immediately prior to administration of medications, the patient was re-assessed for adequacy to receive sedatives. The heart rate, respiratory rate, oxygen saturations, blood pressure, adequacy of pulmonary ventilation, and response to care were monitored throughout the procedure. The physical status of the patient was re-assessed after the procedure. After obtaining informed consent, the endoscope was passed under direct vision. Throughout the procedure, the patient's blood pressure, pulse, and oxygen saturations were monitored continuously. The Colonoscope was introduced through the mouth, and advanced to the second part of duodenum. The upper GI endoscopy was accomplished without difficulty. The patient tolerated the procedure well. Scope In: 6:57:26 AM Scope Out: 7:01:02 AM Total Procedure Duration Time 0 hours 3 minutes 36 seconds Findings: LA Grade B (one or more mucosal breaks greater than 5 mm, not extending between the tops of two mucosal folds) esophagitis with no bleeding was found 38 to 40 cm from the incisors. Biopsies were taken with a cold forceps for histology. Verification of patient identification for the specimen was done. Estimated blood loss was minimal. A small hiatal hernia was present. Patchy mildly erythematous mucosa without bleeding was found in the cardia and in the gastric body. Biopsies were taken with a cold forceps for histology. Verification of patient identification for the specimen was done. Biopsies were taken with a cold forceps for Helicobacter pylori testing. Verification of patient identification for the specimen was done. Estimated blood loss was minimal. Suspect gastroparesis due to absence of peristalsis and patient symptoms. No gross lesions were noted in the duodenal bulb. Biopsies were taken with a cold forceps for histology. Verification of patient identification for the specimen was done. Estimated blood loss was minimal. Impression: - LA Grade B erosive esophagitis with no bleeding. Biopsied. - Small hiatal hernia. - Erythematous mucosa in the cardia and gastric body. Biopsied. - Gastroparesis, secondary to drug side effect. - No gross lesions in the duodenal bulb. Biopsied. Recommendation: - Discharge patient to home. - Resume previous diet. - Continue present medications. - Await pathology results. Procedure Code(s): --- Professional --- 83320, Esophagogastroduodenosc opy, flexible, transoral; with biopsy, single or multiple CPT copyright 2021 [employer]. All rights reserved. The codes documented in this report are preliminary and upon auto parker review may be revised to meet current compliance requirements. Thor Galdamez DO 02/21/2024 7:26:31 AM This report has been signed electronically. Number of Addenda: 0 Note Initiated On: 02/21/2024 6:18 AM 02/21/24 0727 Date (more content not included)... Normal [facility] H Pylori (initial)on 025 H Pylori (initial) --- Patient Age/Sex Location Account Attending Physician KYRA GRANDE ALEX 63/F EN [id number] Thor Galdamez DO Specimen: [id number] Received: 02/21/24 Status: ÁNGELA Sullivan Num: [id number] Spec Type: IMMUNO Subm Dr: Thor Galdamez DO PHYSICIAN INSTITUTION [place] [address] SPECIMEN INFORMATION: Tissue Source: B- Gastric body biopsy Clinical Info: Diarrhea, nausea/vomiting, fecal incontinence Specimen Number: [id number] CPT code: 47124 METHODOLOGY: Deparaffinized sections of prefer/formalin-fixed tissue or PAP/DQ stained slides are incubated with monoclonal/polyclonal antibodies/oligonucleot gabe probes. Localization is made via biotin free immunoperoxidase method. Appropriate controls are performed and reacted as expected. Results on target cell population are indicated in the following table: RESULTS: ANTIBODY / CLONE RESULT Block B H Pylori (polyclonal) negative These tests were developed and their performance characteristics determined by [facility]. They may not have been cleared or approved by the U.S. Food and Drug Administration. The FDA has determined that such clearance or approval is not necessary. The above immunohistochemical/ravinder Liliane markers are ordered and reviewed by the Pathologist. INTERPRETATION: B. Gastric body, biopsy: Negative for Helicobacter pylori organisms. 02/24/2024 Signed (signature on file) Dr. Kamran Leung MD 02/24/24 1342 Normal [facility] Comment on above: Performed By: #### P H.PYLORI #### [facility] [address] [place], [address] MR/POSTOP.ANEon 02-21-2024 MR/POSTOP.[facility] Medical Records Department [address] [place] [address] Anesthesia Postop Eval I 02/21/24725 MR#: [id number] Acct: [id number] Name: KYRA GRANDE ALEX Rep #: [id number] : 1960 63 From: Buck Duncan PCP: JUAN Tidwell Status:REG SDC Y Race: C Location: [place] [address] Anesthesia: Postop Eval I Current Vital Signs Temperature: 97.3 F Pulse Rate: 89 Blood Pressure: 81/51 Respiratory Rate: 16 Pulse Ox: 97 Oxygen Delivery Method: Room Air Assessment Airway patent: Yes Spontaneous unlabored respirations: Yes Mental status: Awake and Calm nausea: No Vomiting: No Anesthesia Complication: No Fluid Hydration Crystalloid volume administer (ml): 75 Total IV fluid infused: 75 Progress Note Anesthesia document: Postop Eval 1 completed: Yes 02/21/24726 Date Buck Duncan Cosignalba Signature: Date CC: Signed Normal [facility] Surgery Specimen Level Kesha 02-21-2024 Surgery Specimen Level IV Patient Age/Sex Location Account Attending Physician KYRA GRANDE 63/F EN [id number] Thor Galdamez DO Specimen: [id number] Received: 02/21/24 Status: ÁNGELA Roseirish Num: [id number] Spec Type: EGD BIOPSY Subm Dr: Thor Galdamez DO HEADER OPERATION: Colonoscopy with biopsy, EGD with biopsy PRE-OP DIAGNOSIS: Diarrhea, nausea/vomiting, fecal incontinence TISSUE SUBMITTED: A- Duodenum biopsy, B- Gastric body biopsy, C- Distal esophagus biopsy,D- Terminal ileum biopsy, E- Random colon biopsy MICROSCOPIC DIAGNOSIS A. Duodenum, biopsy: A fragment of duodenal mucosa with focal villous blunting. B. Gastric body, biopsy: Mild gastritis. See microscopic description and comment. C. Distal esophagus, biopsy: Fragments of benign squamous epithelium. D. Terminal ileum, biopsy: Fragments of small intestinal mucosa, no pathologic diagnosis. E. Colon, random biopsy: Fragments of colonic mucosa, no pathologic diagnosis. SJ.mr 02/24/2024 COMMENT B. The results of immunohistochemistry for Helicobacter pylori will be reported separately ([id number]). MICROSCOPIC DESCRIPTION Slides are reviewed. B. The specimen shows fragments of gastric mucosa with chronic inflammatory cell infiltrates in the lamina propria consisting of lymphocytes and plasma cells, consistent with mild chronic gastritis. GROSS DESCRIPTION A. Received in fixative is one container labeled with the patient's name and designated Duodenum biopsy. The specimen consists of one irregular fragment of light amato soft tissue that measures 0.5 x 0.2 x 0.1 cm. The specimen is totally submitted in one cassette. B. Received in fixative is one container labeled with the patient's name and designated Gastric body biopsy. The specimen consists of one irregular fragment of light amato soft tissue that measures 0.5 x 0.3 x 0.1 cm. The specimen is totally submitted in one cassette. C. Received in fixative is one container labeled with the patient's name and designated Distal esophagus biopsy. The specimen consists of two irregular fragments of light amato soft tissue that in aggregate measure 0.5 x 0.2 x 0.1 cm. The specimen is totally submitted Patient Age/Sex Location Account Attending Physician KYRA GRANDE 63/F EN [id number] Thor Galdamez DO in one cassette. D. Received in fixative is one container labeled with the patient's name and designated Terminal ileum biopsy. The specimen consists of two irregular fragments of light amato soft tissue that in aggregate measure 0.9 x 0.3 x 0.1 cm. The specimen is totally submitted in one cassette. E. Received in fixative is one container labeled with the patient's name and designated Random colon biopsy. The specimen consists of multiple irregular fragments of light amato soft tissue that in aggregate measure 1.2 x 0.4 x 0.1 cm. The specimen is totally submitted in one cassette. 02/21/2024 TC:3 [facility]:[id number] Patient Age/Sex Location Account Attending Physician KYRA GRANDE 63/F EN [id number] Thor Galdamez DO Signed (signature on file) Dr. Kamran Leung MD 02/24/24 1148 Normal [facility] Comment on above: Performed By: #### P SUIV #### [facility] [address] [place], [address] Calprotectin, Stoolon [address] 15 ug/g Normal 0-120 [facility] Comment on above: Result Comment: Conc entration Interpretation Follow-Up < 5 - 50 ug/g Normal None >50 -120 ug/g Borderline Re-evaluate in 4-6 weeks >120 ug/g Abnormal Repeat as clinically indicated Performed at: [address] [id number] Plate Filler: J Carlos Pedroza MD, Phone: [phone] Performed By: #### L 3410.7802, L3790.1973, L3415.6944, L3091.3839 #### [facility] [address] [place], [place], [id number] Ova and Parasites 8623on OP OVA AND PARASITES EX AM, ROUTINE These results were obtained using wet preparation(s) and trichrome stained smear. This test does not include testing for Crytosporidium parvum, Cyclospora, or Microsporidia. One negative specimen does not rule out the possibility of a parasitic infection. TESTING PERFORMED AT [facility]. ORIGINAL REPORT ON FILE IN LAB CONTAINS ADDITIONAL TEST SITE INFORMATION. Ova/Parasite Exam NO OVA, CYSTS, OR PARASITES FOUND. Normal [facility] Comment on above: Performed By: #### L 3410.2400, L3410.2970, L3410.9999, L3410.2920 #### [facility] [address] [facility] [address] [place], [place], [address] H. PYLORI STOOL AGon 024 H PYLORI STL AG Negative Normal Negative [facility] Comment on above: Result Comment: Perf ormed at: [address] [id number] Plate Filler: Dieudonne Ohara PhD, Phone: [phone] Performed By: #### L 3410.2400, L3410.2970, L3410.9999, L3410.2920 #### [facility] [address] [facility] [place], [place], [id number] ENTERIC PATHOGEN PANEL STOOL on 02-17-2024 EP PANEL CAMPYLOBACTER Not Detected Norovirus Not Detected Rotavirus Not Detected Salmonella Not Detected Shiga Toxin Not Detected Shigella sp. Not Detected VIBRIO Not Detected Yersinia Not Detected Normal [facility] Comment on above: Performed By: #### L 3410.2400, L3410.2970, L3410.9999, L3410.2920 #### [facility] [address] [place], [place], [address] MR/Bobbi 02-17-2024 /[facility] Medical Records Department [address] [place] [address] PAT - Anesthesia 02/17/24 1707 MR#: [id number] Acct: [id number] Name: KYRA GRANDE ALEX Rep #: [id number] : 1960 63 From: Xavier Cuevas MD PCP: Augusto Temple DIRECTOR OF MARKET INTELLIGENCE-Salima Status:PRE SDC Y Race: C Location: EN Pre-Assessment Diagnosis/Proposed Procedure Planned Operative Procedure(s): COLONOSCOPY/EGD Anesthesia History 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 When Was Last Pacemaker Check QUESTION #4 FULL TEXT: You/Your Family Experience fever (hyperthermia) with Anesthesia Last Oral Intake Last Oral intake: Last Oral Intake NPO since Meds taken in AM with sips of water? Meds patient instructed to take am of surgery PONV PONV - architectural model maker: PONV - architectural model maker Female Yes 02/17/24 09:12 HX of Motion Sickness No 02/17/24 09:12 HX of N/V After Surgery No 02/17/24 09:12 Non-Smoker Yes 02/17/24 09:12 Duration of Surgery greater No 02/17/24 09:12 than 60 minutes Number of Risk Factors 2 02/17/24 09:12 PONV Score Moderate Risk 02/17/24 09:12 Height Weight Height Weight: Anesthesia: Height Weight Height 5 ft 4 in 02/05/24 14:38 Respiratory Assessment Respiratory Assessment - architectural model maker: Respiratory Tract Infection Hx - architectural model maker Hx Respiratory Tract Infection No 02/17/24 09:12 STOP Sleep Apnea STOP Sleep Apnea - architectural model maker: STOP Sleep Apnea - architectural model maker Hx Hypertension Yes: CONTROLLED WITH MED 02/17/24 09:12 Hx Sleep Apnea Yes 02/17/24 09:12 CPAP No 02/17/24 09:12 BIPAP Yes 02/17/24 09:12 Do you snore loudly (louder than talking or can be heard Do you often feel tired/ fatigued/ sleepy during daytime? Has anyone observed you stop breathing during sleep? STOP Results Positive 02/17/24 09:12 QUESTION #5 FULL TEXT : Do you snore loudly (louder than talking or can be heard through closed doors)? Tobacco Use History Tobacco Use History - architectural model maker: Tobacco Use History - architectural model maker Tobacco Use Smoking Status Former smoker 02/17/24 09:12 Hx Tobacco Use No 02/17/24 09:12 Years Smoking Packs Smoked per Day Smoking Cessation Date was Yes - quit smoking within 15 02/17/24 09:12 within the last 15 years years Hx Smoking Cessation Date Hx Smoking Cessation No: 2012 quit 02/17/24 09:12 Counseling Hematologic Medial History Hematologic Hx - architectural model maker: Hematologic Medical Hx - hop separator Hx of Blood Transfusion No 02/17/24 09:12 Hx of Transfusion in last 3 No 02/17/24 09:12 Months Date of Last Transfusion (if within last 3 months) Ever experience any problems No 02/17/24 09:12 with transfusion(s)? Specify any problems Hx of Preganancy in last 3 No 02/17/24 09:12 Months Nurse Filling Out Transfusion VCHRISTIN 02/17/24 09:12 Questions: Date: 02/17/24 02/17/24 09:12 Time: 09:14 02/17/24 09:12 Patient unable to answer at this time (ie. confused, unrespo /Reproduction History /Reproductive History - architectural model maker: /Reproductive Hx- architectural model maker Hx Now Gestational Age (in weeks): EDC: Hx Hx Para Hx Section SAB PFSH Medical History (Updated 02/17/24 @ 09:12 by Juana Green) GERD (gastroesophageal reflux disease) Reflux esophagitis Kidney stones High cholesterol Generalized headaches Gout IBS (irritable bowel syndrome) Back problem Wears glasses Post-menopausal CAD (coronary artery disease) Anemia Back pain Migraine headache Syncope Dietary restriction History of IBS Former smoker Shortness of breath on exertion BiPAP (biphasic positive airway pressure) dependence History of echocardiogram History of stress test Cardiology follow-up encounter History of heart attack Hypercholesteremia Diabetes Hypertension Stroke/cerebrovascular accident Home Medications ???Medication ???Instructions ???Recorded ???Last Taken ???Type aspirin 81 mg tablet,delayed 81 mg PO DAILY@0800 HEART 02/24/15 04/29/23 History release metoprolol tartrate 100 mg tablet 10 (more content not included)... Normal [facility] CBC W/Diff, Automatedon 12- Absolute Lymph 1.06 X10 3/uL Normal 0.83-4.51 [facility] Comment on above: Performed By: #### L 503.6550, L100.0100, L503.6030 #### [facility] [address] [place], [address] Absolute Neut 8.4 X10 3/uL High 2.0-7.7 [facility] Comment on above: Performed By: #### L 503.6550, L100.0100, L503.6030 #### [facility] [address] [place], [address] Basophils/100 WBC (Bld) 0.3 % Normal 0-1 [facility] Comment on above: Performed By: #### L 503.6550, L100.0100, L503.6030 #### [facility] [address] [place], [address] Eosinophils/100 WBC (Bld) 0.2 % Normal 0-5 [facility] Comment on above: Performed By: #### L 503.6550, L100.0100, L503.6030 #### [facility] [address] [place], [address] Erythrocyte distribution width (RBC) [Ratio] 14.6 % Normal 11.6-14.6 [facility] Comment on above: Performed By: #### L 503.6550, L100.0100, L503.6030 #### [facility] [address] [place], [address] Hematocrit (Bld) [Volume fraction] 42.3 % Normal 37-47 [facility] Comment on above: Performed By: #### L 503.6550, L100.0100, L503.6030 #### [facility] [address] [place], [address] Hemoglobin (Bld) [Mass/Vol] 13.7 g/dL Normal 12.0-15.0 [facility] Comment on above: Performed By: #### L 503.6550, L100.0100, L503.6030 #### [facility] [address] [place], [address] IG% 0.600 Normal 0.0-0.9 [facility] Comment on above: Result Comment: IG% - Immature Granulocytes (promyelocytes, myelocytes and metamyelocytes) > 1% indicates that a LEFT SHIFT is Present. Performed By: #### L 503.6550, L100.0100, L503.6030 #### [facility] [address] [place], [address] Lymphocytes/100 WBC (Bld) 10.9 % Low 19-41 [facility] Comment on above: Performed By: #### L 503.6550, L100.0100, L503.6030 #### [facility] [address] [place], [address] MCH (RBC) [Entitic mass] 28.7 pg Normal 27.0-32.0 [facility] Comment on above: Performed By: #### L 503.6550, L100.0100, L503.6030 #### [facility] [address] [place], [address] MCHC (RBC) [Mass/Vol] 32.4 g/dL Normal 32-36 [facility] Comment on above: Performed By: #### L 503.6550, L100.0100, L503.6030 #### [facility] [address] [place], [address] MCV (RBC) [Entitic vol] 88.5 fL Normal 81-99 [facility] Comment on above: Performed By: #### L 503.6550, L100.0100, L503.6030 #### [facility] [address] [place], [address] Monocytes/100 WBC (Bld) 1.4 % Normal 0-10 [facility] Comment on above: Performed By: #### L 503.6550, L100.0100, L503.6030 #### [facility] [address] [place], [address] Neutrophils/100 WBC (Bld) 86.6 % High 47-70 [facility] Comment on above: Performed By: #### L 503.6550, L100.0100, L503.6030 #### [facility] [address] [place], [address] Nucleated RBC (Bld) [#/Vol] 0 10*3/uL Normal 0-5 [facility] Comment on above: Performed By: #### L 503.6550, L100.0100, L503.6030 #### [facility] [address] [place], [address] Platelet mean volume (Bld) [Entitic vol] 10.1 fL Normal 6.2-12.0 [facility] Comment on above: Performed By: #### L 503.6550, L100.0100, L503.6030 #### [facility] [address] [place], [address] Platelets (Bld) [#/Vol] 216 10*3/uL Normal 150-450 [facility] Comment on above: Performed By: #### L 503.6550, L100.0100, L503.6030 #### [facility] [address] [place], [address] RBC (Bld) [#/Vol] 4.78 10*6/uL Normal 4.2-5.4 [facility] Comment on above: Performed By: #### L 503.6550, L100.0100, L503.6030 #### [facility] [address] [place], [address] RDW SD 46.2 fl High 35.1-43.9 [facility] Comment on above: Performed By: #### L 503.6550, L100.0100, L503.6030 #### [facility] [address] [place], [address] WBC (Bld) [#/Vol] 9.7 10*3/uL Normal 4.4-11.0 [facility] Comment on above: Performed By: #### L 503.6550, L100.0100, L503.6030 #### [facility] [address] [place], [address] Ferritinon 02-05-2024 Ferritin [Mass/Vol] 27 ng/mL Normal 8-252 [facility] Comment on above: Performed By: #### L 503.6550, L100.0100, L503.6030 #### [facility] [address] [place], [address] Gastroenterology Visit Repor ton 02-05-2024 Gastroenterology Visit Report [facility] Gastroenterology [address] 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: No Allergies No Known Allergies Allergy (Verified 02/05/24 14:30) Medications ???Medication ???Instructions ???Recorded ???Confirmed ???Type aspirin 81 mg tablet,delayed 81 mg PO DAILY@0800 HEART 02/24/15 02/05/24 History release metoprolol tartrate 100 mg tablet 100 mg PO DAILY HEART 02/24/15 02/05/24 History meclizine 25 mg tablet 25 mg PO TID PRN dizziness or 04/02/23 02/05/24 Rx vertigo #20 tabs allopurinol 300 mg tablet 300 mg PO DAILY GOUT 04/17/23 02/05/24 History clopidogrel 75 mg tablet 75 mg PO DAILY CAD 04/17/23 02/05/24 History dicyclomine 20 mg tablet 20 mg PO PRN PRN IBS 04/17/23 02/05/24 History atorvastatin 80 mg tablet 80 mg PO QHS Cholesterol 04/29/23 02/05/24 History glipizide 5 mg tablet, extended 5 mg PO DAILY diabetes 04/29/23 02/05/24 History release 24 hr pramipexole 0.125 mg tablet 0.125 mg PO QDAY 09/05/23 02/05/24 History cilostazol 50 mg tablet 50 mg PO BID #60 tabs 12/03/23 02/05/24 Rx lisinopril 20 mg tablet 20 mg PO QDAY 02/05/24 02/05/24 History nitroglycerin 0.4 mg sublingual 0.4 mg sublingual Q5M PRN 02/05/24 02/05/24 History tablet ondansetron 8 mg disintegrating 8 mg PO Q8H PRN 02/05/24 02/05/24 History tablet tirzepatide 7.5 mg/0.5 mL 7.5 mg subcut QWEEK 02/05/24 02/05/24 History subcutaneous pen injector (Tiffanie) Nurse's Note: Has had vomiting and diarrhea for a month. Has started losing some weight and her appetite is poor. 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 Has had IBS for years and this is the first time she hasn't been able to calm it down. Has not had a EGD or colonoscopy, when they tried the first time her blood sugar bottomed out and the second time the doctor called it off because he had an emergency. [facility] Medical History GERD (gastroesophageal reflux disease) Reflux esophagitis Kidney stones High cholesterol Generalized headaches Gout IBS (irritable bowel syndrome) Back problem Wears glasses Post-menopausal CAD (coronary artery disease) Anemia Back pain Migraine headache Syncope Dietary restriction History of IBS Former smoker Shortness of breath on exertion BiPAP (biphasic positive airway pressure) dependence History of echocardiogram History of stress test Cardiology follow-up encounter History of heart attack Hypercholesteremia Diabetes Hypertension Stroke/cerebrovascular accident Surgical History History of left-sided carotid endarterectomy History of cardiac catheterization Hx of tonsillectomy Hx of hysterectomy History of coronary artery stent placement Family History Other Asthma Breast cancer CAD (coronary artery disease) Cancer Cervical cancer Colon cancer Heart disease Kidney disease Myocardial infarction Ovarian cancer Social History Smoking Status: Former smoker how long ago did patient quit smokin yrs alcohol intake: never substance use type: does not use HPI HPI Chief Complaint: vomiting and diarrhea Details: KYRA GRANDE, is a 63 F who presents to the office today for LABS 04/30/2023 HGB 10.6 04/02/2023 HGB 15.8 Mom with colon cancer - she does have occasional formed stools - 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[employer] - very scared to have an accident - symptoms started 1 month ago with watery diarrhea - no control - does not matter what she eats it just goes right through her - can settle down for a couple of days and then kicks back up - she is trying to stick to a bland diet - diarrhea wakes her in middle of the night - weight loss of 4lbs - denies any bleeding - vomiting can be clear liquid or food - she is on an ATB presently for bronchitis - prior to now denies any ATB in the past 6 months - denies any travel - denies any sick contact - denies any prior colonoscopy - she is diabetic x8 years - c/o nausea - denies any new medications or dose changes - she does experience HB - manages with [facility] CCX 7-8 years ago - has not had (more content not included)... Normal [facility] Iron+Iron Binding Capacityon 02-05-2024 Iron [Mass/Vol] 41 ug/dL Low 50-170 [facility] Comment on above: Performed By: #### L 503.6550, L100.0100, L503.6030 #### [facility] [address] [place], [address] IRON SATURATION 9.8 Low 15.0-55.0 [facility] Comment on above: Performed By: #### L 503.6550, L100.0100, L503.6030 #### [facility] [address] [place], [address] TIBC 418 ug/dL Normal 250-450 [facility] Comment on above: Performed By: #### L 503.6550, L100.0100, L503.6030 #### [facility] [address] [place], [address] Carotid Duplex Ultrasoundon 11-12-2023 Carotid Duplex Ultrasound [facility] [address] [place] [address] Carotid Duplex Ultrasound 11/12/23 1051 MR#: [id number] Acct: [id number] Name: KYRA GRANDE ALEX Rep #: [id number] : 1960 62 From: Reese Aguilar MD Attending Dr: FRANCES Sullivan Status: REG CLI Ordering Dr: Shasta De Los Santos Date: 11/12/23 Location: [facility] Sex: F C Admitted: Reason For Study: s/p Lt CEA Rt. Velocities/BP Lt. Velocities/BP Prox CCA 82/17 cm/sec. Prox CCA 89/20 cm/sec. Mid CCA 62/11 cm/sec. Mid CCA 87/23 cm/sec. Dist CCA 74/17 cm/sec. Dist CCA 73/20 cm/sec. Prox ICA 218/31 cm/sec. Prox ICA 79/16 cm/sec. Mid ICA 71/16 cm/sec. Mid ICA 60/22 cm/sec. Dist ICA 66/20 cm/sec. Dist ICA 71/27 cm/sec. Rt. ICA/CCA = 3.5. Lt. ICA/CCA = 0.9. Prox ECA 159/43 cm/sec. Prox ECA 105/11 cm/sec. Rt. Vert. 45/10 cm/sec. Lt. Vert. 50/17 cm/sec. Right Extracranial There is intimal thickening but no significant atherosclerotic plaque noted in the right common carotid artery. There is heterogeneous, irregular atherosclerotic plaque noted in the right internal carotid artery. There is heterogeneous, irregular atherosclerotic plaque noted in the right external carotid artery. Antegrade flow is noted in the right vertebral artery. Left Extracranial There is heterogeneous, irregular atherosclerotic plaque noted in the left common carotid artery. There is intimal thickening but no significant atherosclerotic plaque noted in the left internal carotid artery. There is no significant atherosclerotic plaque noted in the left external carotid artery. Antegrade flow is noted in the left vertebral artery. Procedure Carotid Duplex 60725. This is a Carotid Duplex examination using B-mode, color flow and specral Doppler. Exam performed in department. VL/Carotid Duplex Ultrasound Interpretation Summary Moderate (50-69%) stenosis right extracranial internal carotid. Normal left extracranial internal carotid. Patent and antegrade vertebrals bilaterally. Ordering Physician: Shasta De Los Santos Referring Physician: Augusto Temple Performed By: Rani Jones, JENNY, RVT 11/12/231940 Date Reese Aguilar MD CC: DIRECTOR OF MARKET INTELLIGENCE-C Augusto Temple; FRANCES Sullivan Date Dictated: 11/12/231050 Date Transcribed: 11/12/231940 Kennel Staff Member: Signed Normal [facility] US KIDNEY / BLADDERon 2023 KIDNEY / BLADDER [address] [place], [place] [address] Patient: KYRA GRANDE Phone#: : 1960 Age: 62 Gender: F Pt. Type: Out Account: [id number] Location: [facility] Ordering: AUGUSTO TEMPLE Exam Date: 09/16/2023/6:54 Family Phys: Charge Code: 234508 Physician: [place] Order #: [id number] Dose#: PROCEDURE: KIDNEY/BLADDER ULTRASOUND COMPARISON: None. INDICATIONS: Dysuria TECHNIQUE: Ultrasound examination was performed of the kidneys and bladder. FINDINGS: RIGHT KIDNEY: Normal. Age-appropriate size and echotexture. Right kidney size 10.1 x 4.5 x 4.7 cm. No mass or obstruction. LEFT KIDNEY: A 3.7 centimeter left renal cyst is present. The left kidney measures 10.5 x 7.0 x 5.2 centimeters. BLADDER: Normal. No visible wall thickening, mass, or calculus. OTHER: Negative. CONCLUSION: 1. 3.7 centimeter left renal cyst. 2. There is no significant postvoid residual. Prevoid bladder volume is 281 milliliters. Dictated by: Tina Leong MD on 09/16/2023 at 10:26 Approved by: Tina Leong MD on 09/16/2023 at 10:30 Normal [facility] MR/BMS.BVSon 09-05-2023 MR/BMS.BVS [facility] Vascular Surgery [address] [place], [place] [address] OFFICE VISIT Date of Service: 09/05/23 MR#: [id number] Acct: [id number] Name: KYRA GRANDE ALEX Rep #: [id number] : 1960 Provider: FRANCES Sullivan Age/Sex: 62/F Location: [facility] Status: Signed Intake Vital Signs 06/20/23 09:27 09/05/23 10:54 Height 5 ft 4 in Weight: 188 lb 194 lb BMI 32.2 BP 153/83 H 137/80 H Blood Pressure Location Lt brachial Lt brachial Position Sitting Sitting Respiration 16 16 Pulse 68 78 Pulse Source Monitor Monitor Temp 98.0 F 98 F Temp Source Temporal Temporal Pulse Oximetry (%) 98 96 Oxygen Delivery Method room air room air Intake Visit Reasons: 10-12 W F/U Chief Complaint: rt leg Is patient in pain?: No Allergies No Known Allergies Allergy (Verified 09/05/23 10:55) Medications ???Medication ???Instructions ???Recorded ???Confirmed ???Type aspirin 81 mg tablet,delayed 81 mg PO DAILY@0800 HEART 02/24/15 09/05/23 History release metformin 500 mg tablet,extended 1,000 mg PO BID DIABETIC 02/24/15 09/05/23 History release 24 hr metoprolol tartrate 100 mg tablet 100 mg PO DAILY HEART 02/24/15 09/05/23 History meclizine 25 mg tablet 25 mg PO TID PRN dizziness or 04/02/23 09/05/23 Rx vertigo #20 tabs allopurinol 300 mg tablet 300 mg PO DAILY GOUT 04/17/23 09/05/23 History clopidogrel 75 mg tablet 75 mg PO DAILY CAD 04/17/23 09/05/23 History dicyclomine 20 mg tablet 20 mg PO PRN PRN IBS 04/17/23 09/05/23 History atorvastatin 80 mg tablet 80 mg PO QHS Cholesterol 04/29/23 09/05/23 History glipizide 5 mg tablet, extended 5 mg PO DAILY diabetes 04/29/23 09/05/23 History release 24 hr cilostazol 50 mg tablet 50 mg PO BID #60 tabs 06/20/23 09/05/23 Rx pramipexole 0.125 mg tablet 0.125 mg PO QDAY 09/05/23 09/05/23 History Have you fallen in the past year?: No PFSH Medical History Wears glasses Post-menopausal CAD (coronary artery disease) Anemia Back pain Migraine headache Syncope Dietary restriction History of IBS Former smoker Shortness of breath on exertion BiPAP (biphasic positive airway pressure) dependence History of echocardiogram History of stress test Cardiology follow-up encounter History of heart attack Hypercholesteremia Diabetes Hypertension Stroke/cerebrovascular accident Surgical History History of left-sided carotid endarterectomy History of cardiac catheterization Hx of tonsillectomy Hx of hysterectomy History of coronary artery stent placement Family History Other Asthma Breast cancer CAD (coronary artery disease) Cancer Colon cancer Myocardial infarction Social History Smoking Status: Former smoker how long ago did patient quit smokin yrs alcohol intake: never substance use type: does not use HPI HPI HPI: KYRA GRANDE, is a 62 F who presents to the office today for follow-up of her RLE claudication. At last OV, we initiated pletal 50mg BID. She has not had any adverse effects from this medication. She has noticed significant improvement in her claudication. She can now walk about 1/2 mile before she gets cramping. It is still somewhat limiting for her, but much more tolerable. She also notes that her PCP started her on pramipexole for restless leg syndrome and this has significantly improved her nocturnal discomfort/muscle cramps. At last OV, she was also still having some trouble with swallowing some foods like meats. She reports she never did end up connecting with speech therapy. She reports this is better and she does not wish to pursue speech therapy referral right now. ROS General General: No weight change, appetite, fatigue, colon cancer, breast cancer or weakness HEENT HEENT: No difficulty swallowing, eye injury, eye surgery, swollen glands or hoarseness Endo Endocrine: Yes diabetes mellitus; No thyroid disease, thyroid cancer, Hair loss, heat intolerance or cold intolerance Skin Skin: No rash or changing moles Musc Musculoskeletal: Yes gout; No back problems, arthritis, rheumatoid arthritis or joint pain Cardio Cardiovascular: Yes high blood pressure, heart attack and heart stent; No murmur, pacemaker, heart disease, atrial fibrillation, palpitations, shortness of breat with exertion or chest pain Psych Psychiatric: No depression, anxiety or hearing voices Resp Respiratory: No shortness of breath, Yes sleep apnea, No cough, No COPD, No asthma, No emphysema and No wheezing Gastro Gastrointestinal: No abdominal pain, No nausea or vomiting, No diarrhea, No constipation (more content not included)... Normal [facility] NM CARDIAC STRESS (SPECT) W/ TREADMILLon 08-05-2023 NM CARDIAC STRESS (SPECT) W/TREADMILL [place] [id number] Patient: KYRA GRANDE Phone#: : 1960 Age: 62 Gender: F Pt. Type: Out Account: [id number] Location: [facility] Ordering: DANNA MALDONADO Exam Date: 08/05/2023/8:36 Family Phys: AUGUSTO TEMPLE Charge Code: [id number] Physician: [place] Order #: [id number] Dose#: PROCEDURE: CARDIAC STRESS SPECT WITH TREADMILL EXERCISE HISTORY: HYSTERECTOMY COMPARISON: None. INDICATIONS: Patient 62-year-old female with history of CAD TECHNIQUE: Resting and stress SPECT images acquired in the horizontal long, vertical long and short axis views. Protocol: Zeb Duration: 3:00 minutes Peak Heart Rate: 142 bpm, which is 89% of maximum predicted heart rate. Workload: 4.60 METs REST DOSE: 10.3 mCi Sestamibi. STRESS DOSE: 34.7 mCi Sestamibi. INTERPRETATION: Resting Images: Resting images showed mild perfusion defect in the distal anterior inferior wall which improved with stress. There is breast attenuation and diaphragmatic attenuation artifact seen which results in above perfusion defect Stress Images: Stress images showed/normal perfusion homogeneous radiotracer of the left ventricle. Gated SPECT/wall motion: Calculated ejection fraction is 72%. There are no regional wall motion abnormality seen. TID ratio is 1.09 CONCLUSION: 1. Nuclear stress test showed no conclusive evidence of reversible ischemia or infarct. 2. Calculated ejection fraction is 72% with normal wall motion. 3. TID ratio is normal. Dictated by: DANNA MALDONADO MD on 08/05/2023 at 11:22 Approved by: DANNA MALDONADO MD on 08/05/2023 at 11:26 Normal [facility] NM EXERCISE STRESS TEST (W/C ARDIAC STUDYon 08-05-2023 NM EXERCISE STRESS TEST (W/CARDIAC STUDY [place] [id number] Patient: KYRA GRANDE Phone#: : 1960 Age: 62 Gender: F Pt. Type: Out Account: [id number] Location: 010 Ordering: DANNA MALDONADO Exam Date: 08/05/2023/8:48 Family Phys: AUGUSTO TEMPLE Charge Code: [id number] Physician: Nodaway Order #: [id number] Dose#: PROCEDURE: ELECTROCARDIOGRAM STRESS TEST HISTORY: HYSTERECTOMY COMPARISON: None. INDICATIONS: CAD TECHNIQUE: Electrocardiogram stress test was performed using the protocol listed below. STRESS RESULTS: Protocol: Zeb Duration: 03:00minutes Reason for termination: leg pain Resting Heart Rate: 85 bpm. Resting Blood Pressure: 177/91 mmHg Peak Heart Rate: 142 which is 89% of maximum predicted heart rate Peak Blood Pressure: 210/85 occuring at 3:50 into recovery Workload: 4.60 METs. Symptoms with stress: Patient did not complain of any chest pain with stress. Stress test was ended due to leg pain. EKG Data EKG at Baseline: EKG at baseline showed sinus rhythm at 82 BPM. Poor R-wave progression. There are no ST or T-wave abnormality seen. EKG with Stress: EKG with stress showed sinus rhythm at 0142 BPM. There are no ST or T-wave changes from baseline to suggest inducible ischemia. CONCLUSION: 1. Patient did not complain of chest pain with stress. Stress test was ended due to leg pain. 2. Patient had appropriate heart rate and blood pressure response with stress. 3. Patient was able to achieve fair workload capacity. 4. Stress EKG is negative for inducible ischemia. 5. Nuclear images will be read reported separately. Continued Report - Page 2 of 2 Patient: KYRA GRANDE Phone#: : 1960 Age: 62 Gender: F Pt. Type: Out Account: [id number] Location: 010 Ordering: DANNA MALDONADO Exam Date: 08/05/2023/8:48 Family Phys: AUGUSTO TEMPLE Charge Code: [id number] Physician: [place] Order #: [id number] Dose#: Dictated by: DANNA MALDONADO MD on 08/05/2023 at 11:14 Approved by: DANNA MALDONADO MD on 08/05/2023 at 11:18 Normal [facility] Absolute lymphocyte countOrd ered By: Reese Aguilar on 04-30-2023 Lymphocytes Auto (Unsp spec) [#/Vol] 1.26 10*3/uL 0.83-4.51 [facility] Automated lymphocyte count a s percentage of total leukocytesOrdered By: Reese Aguilar on 04-30-2023 Lymphocytes/100 WBC Auto (Unsp spec) 14.1 % 19-41 [facility] Basophil percentageOrdered B y: Reese Aguilar on 04-30-2023 Basophils/100 WBC (Bld) 0.1 % 0-1 [facility] Eosinophils/100 WBC (Bld) 0.1 % 0-5 [facility] Hemoglobin (Bld) [Mass/Vol] 10.6 g/dL 12.0-15.0 [facility] Monocytes/100 WBC (Bld) 9.3 % 0-10 [facility] Neutrophils (Bld) [#/Vol] 6.8 10*3/uL 2.0-7.7 [facility] Neutrophils/100 WBC (Bld) 76.1 % 47-70 [facility] WBC (Bld) [#/Vol] 9.0 10*3/uL 4.4-11.0 [facility] Determination of erythrocyte mean corpuscular volume (MCV)Ordered By: Reese Aguilar on 04-30-2023 MCV (RBC) [Entitic vol] 92.0 fL 81-99 [facility] Erythrocyte distribution wid th ratioOrdered By: Reesedeneen Aguilar on 04-30-2023 Erythrocyte distribution width (RBC) [Ratio] 14.4 % 11.6-14.6 [facility] Erythrocyte distribution wid th standard deviationOrdered By: Reese Aguilar on 04-30-2023 Erythrocyte distribution width (RBC) [Entitic vol] 48.2 fL 35.1-43.9 [facility] Hematocrit Auto (Bld) [Volum e fraction]Ordered By: Reese Aguilar on 04-30-2023 Hematocrit (Bld) [Volume fraction] 32.3 % 37-47 [facility] Immature granulocytes/100 WB C Auto (Bld)Ordered By: Reese Aguilar on 04-30-2023 Immature granulocytes/100 WBC (Bld) 0.300 % 0.0-0.9 [facility] Comment on above: IG% - Immature Granu locytes (promyelocytes, myelocytes and metamyelocytes) > 1% indicates that a LEFT SHIFT is Present. Laboratory - Hematology and Cell countsOrdered By: Reese Aguilar on 04-30-2023 MCH (RBC) [Entitic mass] 30.2 pg 27.0-32.0 [facility] MCHC (RBC) [Mass/Vol] 32.8 g/dL 32-36 [facility] Nucleated RBC/100 WBC (Bld) [Ratio] 0 % 0-5 [facility] Platelet mean volume (Bld) [Entitic vol] 10.8 fL 6.2-12.0 [facility] Platelets (Bld) [#/Vol] 179 10*3/uL 150-450 [facility] RBC Auto (Bld) [#/Vol]Ordere d By: Reese Aguilar on 04-30-2023 RBC (Bld) [#/Vol] 3.51 10*6/uL 4.2-5.4 [facility] Thin prep Papanicolaou smear with manual screeningOrdered By: Reese Aguilar on 04-30-2023 Thin prep Papanicolaou smear with manual screening 137 mg/dL 74-106 [facility] Comment on above: MANAGEMENT OF PATIEN T CARE PER NURSING PROTOCOL Absolute lymphocyte countOrd ered By: Chandler Chakraborty on 04-02-2023 Lymphocytes Auto (Unsp spec) [#/Vol] 0.66 10*3/uL 0.83-4.51 [facility] Automated lymphocyte count a s percentage of total leukocytesOrdered By: Chandler Chakraborty on 04-02-2023 Lymphocytes/100 WBC Auto (Unsp spec) 4.2 % 19-41 [facility] Basophil percentageOrdered B y: Chandler Chakraborty on 04-02-2023 Basophil percentage 5-10 SEEN /hpf 0-5 [facility] Basophils/100 WBC (Bld) 0.2 % 0-1 [facility] Chloride [Moles/Vol] 109 mmol/L 98-107 [facility] Eosinophils/100 WBC (Bld) 9.8 % 0-5 [facility] Glucose [Mass/Vol] 204 mg/dL 74-106 [facility] Comment on above: Glucose result great er than or equal to 200 mg/dLsuggests DIABETES MELLITUS per A.D.A. criteria. Hemoglobin (Bld) [Mass/Vol] 15.5 g/dL 12.0-15.0 [facility] Monocytes/100 WBC (Bld) 3.6 % 0-10 [facility] Neutrophils (Bld) [#/Vol] 12.8 10*3/uL 2.0-7.7 [facility] Neutrophils/100 WBC (Bld) 80.7 % 47-70 [facility] Potassium [Moles/Vol] 4.6 mmol/L 3.5-5.1 [facility] Sodium [Moles/Vol] 143 mmol/L 136-145 [facility] WBC (Bld) [#/Vol] 15.8 10*3/uL 4.4-11.0 [facility] Bilirubin Test strip Ql (U)O rdered By: Chandler Chakraborty on 04-02-2023 Bilirubin Ql (U) 1 mg/dL Negative [facility] Comment on above: COLOR OF URINE MAY A FFECT DIPSTICK RESULTS. Blood manual differential co mment interpretation (narrative result)Ordered By: Chandler Chakraborty on 04-02-2023 Manual differential comment Alexander (Bld) [Interp] COMMENT [facility] Determination of erythrocyte mean corpuscular volume (MCV)Ordered By: Chandler Chakraborty on 04-02-2023 MCV (RBC) [Entitic vol] 90.7 fL 81-99 [facility] Erythrocyte distribution wid th ratioOrdered By: Chandler Chakraborty on 04-02-2023 Erythrocyte distribution width (RBC) [Ratio] 14.7 % 11.6-14.6 [facility] Erythrocyte distribution wid th standard deviationOrdered By: Chandler Chakraborty on 04-02-2023 Erythrocyte distribution width (RBC) [Entitic vol] 48.5 fL 35.1-43.9 [facility] Hematocrit Auto (Bld) [Volum e fraction]Ordered By: Chandler Chakraborty on 04-02-2023 Hematocrit (Bld) [Volume fraction] 48.7 % 37-47 [facility] Immature granulocytes/100 WB C Auto (Bld)Ordered By: Chandler Chakraborty on 04-02-2023 Immature granulocytes/100 WBC (Bld) 1.500 % 0.0-0.9 [facility] Comment on above: IG% - Immature Granu locytes (promyelocytes, myelocytes and metamyelocytes) > 1% indicates that a LEFT SHIFT is Present. Ketones Test strip Ql (U)Ord ered By: Chandler Chakraborty on 04-02-2023 Ketones Ql (U) 5 mg/dl Negative [facility] Laboratory - Chemistry and C hemistry - challengeOrdered By: Chandler Chakraborty on 04-02-2023 CO2 [Moles/Vol] 26.0 mmol/L 21.0-32.0 [facility] Natriuretic peptide B (Bld) [Mass/Vol] 24.7 pg/mL 0-100 [facility] Urea nitrogen/Creatinine [Mass ratio] 15.8 mg/mg 10-20 [facility] Laboratory - Hematology and Cell countsOrdered By: Chandler Chakraborty on 04-02-2023 MCH (RBC) [Entitic mass] 28.9 pg 27.0-32.0 [facility] MCHC (RBC) [Mass/Vol] 31.8 g/dL 32-36 [facility] Nucleated RBC/100 WBC (Bld) [Ratio] 0 % 0-5 [facility] Platelet mean volume (Bld) [Entitic vol] 10.8 fL 6.2-12.0 [facility] Platelets (Bld) [#/Vol] 215 10*3/uL 150-450 [facility] Laboratory - Microbiology an d Antimicrobial susceptibilityOrdered By: Chandler Chakraborty on 04-02-2023 SARS-CoV-2 (COVID-19) RNA NIMESH+probe Ql (Unsp spec) [facility] SARS-CoV-2 (COVID-19) RNA NIMESH+probe Ql (Unsp spec) [facility] Mucus LM Ql (Urine sed)Order ed By: Chandler Chakraborty on 04-02-2023 Mucus Ql (Urine sed) RARE /hpf [facility] Nitrite Test strip Ql (U)Ord ered By: Chandler Chakraborty on 04-02-2023 Nitrite Ql (U) Negative Negative [facility] No Panel InformationOrdered By: Chandler Chakraborty on 04-02-2023 Urine RBC 0-5 SEEN /hpf 0-5 [facility] Estimated Creatinine Clearance Calc 60.89 ml/min [facility] Estimated GFR (MDRD) Amer 72 mL/min >60 [facility] Comment on above: GFR Calc Estimated GFR (MDRD) Non-Af Amer 59 mL/min >60 [facility] Comment on above: Non- GFR Calc Troponin I High Sensitivity 6 pg/mL 3.0-54.0 [facility] Comment on above: Please Note: [place] t Units and Gender Specific Reference Ranges. For more information see Policy Stat Procedure [place] High Sensitivity Troponin (TNIH) and attachments. Protein Test strip Ql (U)Ord ered By: Chandler Chakraborty on 04-02-2023 Protein Ql (U) 15 mg/dl Negative [facility] RBC Auto (Bld) [#/Vol]Ordere d By: Chandler Chakraborty on 04-02-2023 RBC (Bld) [#/Vol] 5.37 10*6/uL 4.2-5.4 [facility] Serum or plasma calcium lenora urement (mass/volume)Ordered By: Chandler Chakraborty on 04-02-2023 Calcium [Mass/Vol] 9.5 mg/dL 8.5-10.1 [facility] Serum or plasma creatinine m easurement (mass/volume)Ordered By: Chandler Chakraborty on 04-02-2023 Creatinine [Mass/Vol] 1.01 mg/dL 0.55-1.02 [facility] Comment on above: The validity of the calculated GFR & GFRAA in patients over 70 years has not been determined. Clinical correlation is essential. Serum or plasma urea nitroge n measurement (mass/volume)Ordered By: Chandler Chakraborty on 04-02-2023 Urea nitrogen [Mass/Vol] 16 mg/dL 7-18 [facility] Squamous epithelial cells de tection in urine sediment by light microscopyOrdered By: Chandler Chakraborty on 04-02-2023 Epithelial cells.squamous LM Ql (Urine sed) 0-5 SEEN /hpf 5-10 [facility] Thin prep Papanicolaou smear with manual screeningOrdered By: Chandler Chakraborty on 04-02-2023 Thin prep Papanicolaou smear with manual screening 111 mg/dL 74-106 [facility] Comment on above: MANAGEMENT OF PATIEN T CARE PER NURSING PROTOCOL Thin prep Papanicolaou smear with manual screening 8 5-15 [facility] Urine blood detectionOrdered By: Chandler Chakraborty on 04-02-2023 RBC Ql (U) Negative Negative [facility] Urine clarityOrdered By: Sean Chakraborty on 04-02-2023 Clarity (U) Clear Clear [facility] Urine color determinationOrd ered By: Chandler Chakraborty on 04-02-2023 Color (U) Yellow Yellow [facility] Urine glucose detectionOrder ed By: Chandler Chakraborty on 04-02-2023 Glucose Ql (U) Normal mg/dl Normal [facility] Urine leukocyte esterase det ection by dipstickOrdered By: Chandler Chakraborty on 04-02-2023 Leukocyte esterase Test strip Ql (U) 25 /ul Negative [facility] Urine pHOrdered By: Chandler garnett on 04-02-2023 pH (U) 5.0 [pH] 5.0 - 8.0 [facility] Urine sediment bacteria coun t by microscopy (number/high power field)Ordered By: Chandler Chakraborty on 04-02-2023 Bacteria LM.HPF (Urine sed) [#/Area] 0 /[HPF] None Seen [facility] Urine specific gravity measu rementOrdered By: Chandler Chakraborty on 04-02-2023 Specific gravity (U) [Rel density] 1.020 1.002-1.030 [facility] Urine urobilinogen measureme ntOrdered By: Chandler Chakraborty on 04-02-2023 Urobilinogen Ql (U) Normal mg/dl Normal [facility] Hemoglobin A1con 01-12-2021 Glucose [Mass/Vol] 180 mg/dL Normal [facility] Comment on above: Performed By: #### H ARISTIDES #### [facility] Lab [address], [place] [address] HbA1c (Bld) [Mass fraction] 7.9 % High 4.3-5.6 [facility] Comment on above: Performed By: #### H ARISTIDES #### [facility] Routine Lab [address] [place] [id number] Vital Signs Date Time Vital Sign Value Performing Clinician Facility 06-12-2024 17:51-0400 Diastolic Blood Pressure Non-Invasive 58 mm[Hg] DEVAUGHN RUELAS MD [facility] 06-12-2024 17:51-0400 Heart rate 92 /min DEVAUGHN RUELAS MD [address] [place] [address] 06-12-2024 17:51-0400 Mean blood pressure 72 mm[Hg] DEVAUGHN RUELAS MD [address] 06-12-2024 17:51-0400 Respiratory rate 18 /min DEVAUGHN RUELAS MD [address] 06-12-2024 17:51-0400 Systolic Blood Pressure Non-Invasive 107 mm[Hg] DEVAUGHN RUELAS MD [address] 06-12-2024 15:57-0400 Diastolic Blood Pressure Non-Invasive 61 mm[Hg] DEVAUGHN RUELAS MD [address] 06-12-2024 15:57-0400 Heart rate 94 /min DEVAUGHN RUELAS MD [address] [place] [address] 06-12-2024 15:57-0400 Respiratory rate 18 /min DEVAUGHN RUELAS MD [address] [place] [address] 06-12-2024 15:57-0400 Systolic Blood Pressure Non-Invasive 126 mm[Hg] DEVAUGHN RUELAS MD [address] [place] [address] 06-12-2024 14:55-0400 Diastolic Blood Pressure Non-Invasive 52 mm[Hg] DEVAUGHN RUELAS MD [address] [place] [address] 06-12-2024 14:55-0400 Heart rate 92 /min DEVAUGHN RUELAS MD [address] [place] [address] 06-12-2024 14:55-0400 Respiratory rate 18 /min DEVAUGHN RUELAS MD [facility] 06-12-2024 14:55-0400 Systolic Blood Pressure Non-Invasive 94 mm[Hg] DEVAUGHN RUELAS MD [facility] 06-12-2024 12:18-0400 Body temperature 97.34 [degF] DEVUAGHN RUELAS MD [facility] 06-12-2024 12:18-0400 Body weight 83.8 kg DEVAUGHN RUELAS MD [facility] 04-30-2023 15:36-0400 Body height 162.56 cm DIRECTOR OF MARKET IN[employer]LL[employer]-C Augusto Temple DIRECTOR OF MARKET INTELLIGENCE Work Phone: [facility] 04-30-2023 15:36-0400 Body weight 85.9 kg DIRECTOR OF [employer]-C Augusto Temple DIRECTOR OF MARKET INTELLIGENCE Work Phone: [facility] 04-30-2023 15:00-0400 Diastolic blood pressure 67 mm[Hg] DIRECT[employer] OF [employer]LL[employer]-C Augusto Temple DIRECTOR OF MARKET INTELLIGENCE Work Phone: [facility] 04-30-2023 15:00-0400 Heart rate 75 /min [employer]-C Augusto Temple DIRECTOR OF MARK[employer] INTELLIGENCE Work Phone: [facility] 04-30-2023 15:00-0400 Respiratory rate 19 /min [employer]-C Augusto Temple DIRECTOR OF MARK[employer] INTELLIGENCE Work Phone: [facility] 04-30-2023 15:00-0400 SaO2% (BldA) [Mass fraction] 99 % [employer]-C Augusto Temple DIRECTOR OF MARKET INTELLIGENCE Work Phone: [facility] 04-30-2023 15:00-0400 Systolic blood pressure 131 mm[Hg] [employer]-C Augusto Temple DIRECTOR OF MARKET INTELLIGENCE Work Phone: [facility] 04-30-2023 12:00-0400 Body temperature 97.4 [degF] [employer]-C Augusto Temple DIRECTOR OF MARKET INTELLIGENCE Work Phone: [facility] 04-30-2023 06:00-0400 Inhaled oxygen flow rate 2 L/min [employer]-C Augusto Temple DIRECTOR OF MARKET INTELLIGENCE Work Phone: [facility] 04-30-2023 04:48-0400 Body mass index (BMI) [Ratio] 32.5 kg/m2 [employer]-C Augusto Temple DIRECTOR OF MARKET INTELLIGENCE Work Phone: [facility] 04-10-2023 15:18-0500 Body temperature 98.2 [degF] [employer]-C Augusto Temple DIRECTOR OF MARKET INTELLIGENCE Work Phone: [facility] 04-10-2023 15:18-0500 Body weight 80.73 kg DIRECTOR [employer]-C Augusto Temple DIRECTOR OF MARK[employer] INTELLIGENCE Work Phone: [facility] 04-10-2023 15:18-0500 Diastolic blood pressure 74 mm[Hg] [employer]-C Augusto Temple DIRECTOR OF MARK[employer] INTELLIGENCE Work Phone: [facility] 04-10-2023 15:18-0500 Heart rate 93 /min [employer]-C Augusto Temple DIRECTOR OF MARK[employer]TELL[employer] Work Phone: [facility] 04-10-2023 15:18-0500 Respiratory rate 16 /min [employer]-C Augusto Temple DIRECTOR OF MARK[employer] INTELLIGENCE Work Phone: [facility] 04-10-2023 15:18-0500 SaO2% (BldA) [Mass fraction] 96 % [employer]-C Augusto Temple DIRECTOR OF MARK[employer] INTELLIGENCE Work Phone: [facility] 04-10-2023 15:18-0500 Systolic blood pressure 118 mm[Hg] DIRECT[employer]-C Augusto Temple DIRECTOR OF MARKET INTELLIGENCE Work Phone: [facility] 04-02-2023 18:28-0500 Body temperature 98.7 [degF] [facility] 04-02-2023 18:28-0500 Diastolic blood pressure 100 mm[Hg] [facility] 04-02-2023 18:28-0500 Heart rate 108 /min [facility] 04-02-2023 18:28-0500 Respiratory rate 21 /min [facility] 04-02-2023 18:28-0500 SaO2% (BldA) [Mass fraction] 97 % [facility] 04-02-2023 18:28-0500 Systolic blood pressure 142 mm[Hg] [facility] 04-02-2023 13:41-0500 Body mass index (BMI) [Ratio] 31.3 kg/m2 [facility] 04-02-2023 13:41-0500 Body weight 82.8 kg [facility] 04-02-2023 13:06-0500 Body height 162.56 cm [facility] Encounters Encounter Date Encounter Type Care Provider Facility Start: 07-27-2024 ambulatory Shasta De Los Santos Facility:[facility] Start: 06-12-2024 End: 06-12-2024 Emergency department patient visit DEVAUGHN RUELAS MD [facility] Start: 06-11-2024 End: 06-11-2024 Emergency department patient visit DAVID FAITH MERRITT [facility] Start: 04-02-2024 End: 04-02-2024 Emergency department patient visit CURTIS SOOD [facility] Start: 03-12-2024 End: 03-12-2024 ambulatory Shanae Lakhani Facility:[facility] Start: 03-12-2024 End: 03-12-2024 ambulatory Shanae Lakhani Facility:[facility] Start: 03-02-2024 End: 03-02-2024 ambulatory SHANAE LAKHANI [facility] Start: 02-21-2024 ambulatory Thor Galdamez Facility :[facility] Start: 02-21-2024 End: 02-21-2024 ambulatory Thor Galdamez Facility:[facility] Start: 02-20-2024 ambulatory AUGUSTO GUILLAUME [facility] Start: 02-17-2024 End: 02-17-2024 ambulatory Shanae Lakhani Facility:[facility] Start: 02-05-2024 End: 02-05-2024 ambulatory Augusto Temple NP Facility:[facility] Start: 02-05-2024 End: 02-05-2024 ambulatory Shanae Lakhani Facility:[facility] Start: 11-12-2023 ambulatory Augusto Temple NP Facil ity:[facility] Start: 11-12-2023 End: 11-12-2023 ambulatory Augusto Temple NP Facility:[facility] Start: 09-20-2023 ambulatory [facility] Facility:[facility] Start: 09-16-2023 End: 09[facility]16[facility]20[facility]: 09-05-2023 End: 09-05-2023 ambulatory [facility] Facility:[facility] Start: 08-05-2023 End: 08-05-2023 ambulatory DANNA MALDONADO [facility] Start: 07-04-2023 End: 07-04-2023 ambulatory REMIGIO WILEY [facility] Start: 06-13-2023 ambulatory REMIGIO WILEY MD Faci lity:B Start: 04-30-2023 Non-patient / Non-visit [employer]-C Abdi Temple DIRECTOR OF MARK[employer] INTELLIGENCE Work Phone: [facility] Start: 04-29-2023 Non-patient / Non-visit [employer]-C Abdi Temple DIRECTOR OF MARK[employer]TELLIGENCE Work Phone: [facility] Start: 04-29-2023 End: 04-30-2023 Evaluation and management of inpatient DIRECTOR OF MARK[employer]IGENCE-Salima Temple DIRECTOR OF MARK[employer]TELLIGENCE Work Phone: [facility]-Intensive [facility] Unit Work Phone: Start: 04-10-2023 End: 04-10-2023 Patient encounter procedure DIRECTOR OF MARK[employer]LLIGENCE-Salima Temple DIRECTOR OF MARKET [employer]TELLIGENCE Work Phone: [facility] Work Phone: Start: 04-02-2023 End: 04-02-2023 Emergency department patient visit [facility]Emergency [facility] Work Phone: Procedures Date Procedure Procedure Detail Performing Clinician Start: 04-29-2023 Carotid endarterectomy DIRECTOR OF MARKET INTELLIGENCE-C Augusto Temple DIRECTOR OF MARKET INTELLIGENCE Work Phone: Start: 04-29-2023 Carotid endarterectomy DEVAUGHN RUELAS MD Start: 04-02-2023 CT angiography of he ad and neck Start: 04-02-2023 Plain chest X-ray Start: 04-02-2023 SARS-CoV-2, Influenz a & RSV (PCR) Start: 07-25-2017 Cardiac catheterization DEVAUGHN RUELAS MD Start: 02-03-2014 Cholecystectomy DEVAUGHN RUELAS MD Start: 03-06-2013 Percutaneous translu mook balloon angioplasty with insertion of stent into coronary artery DEVAUGHN RUELAS MD Start: 02-18-1997 Abdominal hysterectomy DEVAUGHN RUELAS MD Plan of Treatment Date Care Activity Detail Author Start: 04-30-2023 Patient discharge [facility] Start: 04-29-2023 [facility] Start: 04-29-2023 Following clinical pathway protocol [facility] Start: 04-29-2023 Assessment of risk of venous thromboembolism [facility] Start: 04-29-2023 Bedrest [facility] Start: 04-29-2023 Care regimes management [facility] Start: 04-29-2023 Catheterization of vein [facility] Start: 04-29-2023 Continuous pulse oximetry [facility] Start: 04-29-2023 Deep breathing and coughing exercises [facility] Start: 04-29-2023 Elevation of head of bed [facility] Start: 04-29-2023 Incentive spirometry [facility] Start: 04-29-2023 Insertion of catheter into peripheral vein [facility] Start: 04-29-2023 Measuring intake and output [facility] Start: 04-29-2023 Notification of physician [facility] Start: 04-29-2023 Oxygen therapy [facility] Start: 04-29-2023 Patient referral to dietitian [facility] Start: 04-29-2023 Providing care according to standard [facility] Start: 04-29-2023 Referral to occupational therapist [facility] Start: 04-29-2023 Referral to service [facility] Start: 04-29-2023 Vital signs measurements [facility] Start: 04-29-2023 [facility] Start: 04-29-2023 Verification routine [facility] Start: 04-29-2023 Admission procedure [facility] Start: 04-29-2023 Maintenance of invasive device [facility] Start: 04-02-2023 End: 04-02-2023 [facility] Patient Education ED Headache Unspecified ED Vertigo, Unspecified [facility] Work Phone: Patient referral [facility] Work Phone: Payers Date Payer Category Payer Self-pay [id number] 2023 Unknown [id number] 2021 Unknown [id number] 1960 Unknown [id number] 2.16.8 40.1.106931.3.579.2.627 1960 Unknown [id number] 2.16.8 40.1.614037.3.579.2.627 1960 Unknown [id number] 2.16.8 40.1.653840.3.579.2.651 1960 Unknown [id number] 2.16.8 40.1.707803.3.579.2.651 1960 Unknown [id number] 2.16.8 40.1.674140.3.579.2.651 1960 Unknown [id number] 2.16.8 40.1.750552.3.579.2.651 1960 Unknown [id number] 2.16.8 40.1.459018.3.579.2.651 1960 Unknown [id number] 2.16.8 40.1.747477.3.579.2.651 1960 Unknown [id number] 2.16.8 40.1.326312.3.579.2.651 Unknown [id number] 2.16.8 40.1.290600.3.579.2.462 Unknown [id number] 2.16.8 40.1.024779.3.579.2.462 Unknown [id number] 2.16.8 40.1.658178.3.579.2.462 Unknown [id number] 2.16.8 40.1.481052.3.579.2.462 Unknown [id number] 2.16.8 40.1.647037.3.579.2.462 Unknown [id number] 2.16.8 40.1.050364.3.579.2.462 Unknown [id number] 2.16.8 40.1.949259.3.579.2.462 Unknown [id number] 2.16.8 40.1.111704.3.579.2.462 Unknown [id number] 2.16.8 40.1.673600.3.579.2.462 Unknown [id number] 2.16.8 40.1.169058.3.579.2.462 Unknown [id number] 2.16.8 40.1.393234.3.579.2.462 Unknown [id number] 2.16.8 40.1.813410.3.579.2.462 Social History Date Type Detail Facility Start: 04-02-2023 End: 04-17-2023 Tobacco smoking status HIIS Unknown if ever smoked [facility] Start: 1960 Sex Assigned At Female W [facility] Start: 12-02-2019 Tobacco smoking status Ex-smoker (fi nding) [facility] Comment on above: quit 2012 Sexual Orientation [facility] Start: 01-13-2019 Sex Female (finding) [facility] NEGATED: Highlighted row [facility] Medical Equipment Procedure Code Equipment Code Equipment Origin al Text Equipment Identifier Dates Endarterectomy, carotid Cardiovascular patch, animal-derived ()[id number] FDA Start: 04-29-2023 Endarterectomy, carotid Ligation clip, metallic ()[id number] FDA Start: 04-29-2023 Endarterectomy, carotid Ligation clip, metallic ()[id number] FDA Start: 04-29-2023 Goals Date Patient Goal Desired Activity /State Functional Status Date Assessment Result Facility 06-12-2024 Functional Status Independent [facility] 06-12-2024 Functional Status Room check performed [facility] 06-12-2024 Functional Status [facility] 04-30-2023 Functional status Ambulates;Up ad [facility] Work Phone: Mental Status Date Assessment Result Facility 06-12-2024 Mental Status Orientation Orie nted x 4, Follows simple commands [facility] 06-12-2024 Mental Status [facility] 04-30-2023 Cognitive function Voice/Name [facility] Work Phone: 04-02-2023 Cognitive function Level Of Cons ciousness Awake;Alert;Appropriate [facility] Work Phone: Clinical Notes 04-02-2023 to 06-17-2024 Note Date & Type Note Facility 06-17-2024 Note . MICRO - Microbiology PROCEDURE: Blood Culture (bacterial) [*1] SOURCE: Blood BODY SITE: COLLECTED DATE/TIME: 06/12/2024 13:09 EDT RECEIVED DATE/TIME: 06/12/2024 13:33 EDT START DATE/TIME: 06/12/2024 13:33 EDT FREE TEXT SOURCE: FINAL REPORTS Final Report [] Verified Date/Time/Personnel: 06/17/2024 13:59 EDT Blood Culture: No Growth at 5 days. PRELIMINARY REPORTS Preliminary Report [] Verified Date/Time/Personnel: 06/12/2024 14:59 EDT Culture has been received in lab and is no growth to date. Routine cultures are held for 5 days. Performing Locations *1: This test was performed at: [address], [id number] [place] [address] 06-17-2024 Note . MICRO - Microbiology PROCEDURE: Blood Culture (bacterial) [*1] SOURCE: Blood BODY SITE: COLLECTED DATE/TIME: 06/12/2024 13:06 EDT RECEIVED DATE/TIME: 06/12/2024 13:33 EDT START DATE/TIME: 06/12/2024 13:33 EDT FREE TEXT SOURCE: FINAL REPORTS Final Report [] Verified Date/Time/Personnel: 06/17/2024 13:59 EDT Blood Culture: No Growth at 5 days. PRELIMINARY REPORTS Preliminary Report [] Verified Date/Time/Personnel: 06/12/2024 14:59 EDT Culture has been received in lab and is no growth to date. Routine cultures are held for 5 days. Performing Locations *1: This test was performed at: [address], [address] [place] [address] 06-12-2024 Hospital Discharge instructions Patient Education 06/12/2024 17:38:24 Dental Abscess Dental Abscess An abscess is a pocket of pus at the tip of a tooth root in your jaw bone. It is caused by an infection at the root of the tooth. It can cause pain and swelling of the gum, cheek, or jaw. Pain may spread from the tooth to your ear or the area of your jaw on the same side. If the abscess isn t treated, it appears as a bubble or swelling on the gum near the tooth. The pressure that builds in this swelling is the source of the pain. More serious infections cause your face to swell. An abscess can be caused by a crack in the tooth, a cavity, a gum infection, or a combination of these. Once the pulp of the tooth is exposed, bacteria can spread down the roots to the tip. If the bacteria are not stopped, they can damage the bone and soft tissue, and an abscess can form. Home care Follow these guidelines when caring for yourself at home: Don't have hot and cold foods and drinks. Your tooth may be sensitive to changes in temperature. Don t chew on the side of the infected tooth. If your tooth is chipped or cracked, or if there is a large open cavity, put oil of cloves directly on the tooth to relieve pain. You can buy oil of cloves at drugstores. Some pharmacies carry an kvnd-ghn-zscimzy toothache kit. This contains a paste that you can put on the exposed tooth to make it less sensitive. Put a cold pack on your jaw over the sore area to help reduce pain. You may use lsru-mjh-cvmudrt medicine to ease pain, unless another medicine was prescribed. If you have chronic liver or kidney disease, talk with your healthcare provider before using acetaminophen or ibuprofen. Also talk with your provider if you ve had a stomach ulcer or GI bleeding. An antibiotic will be prescribed. Take it until finished, even if you are feeling better after a few days. Follow-up care Follow up with your dentist or an oral surgeon, or as advised. Once an infection occurs in a tooth, it will continue to be a problem until the infection is drained. This is done through surgery or a root canal. Or you may need to have your tooth pulled. Call 911 Call 911 if any of these occur: Unusual drowsiness Headache or stiff neck Weakness or fainting Difficulty swallowing, breathing, or opening your mouth Swollen eyelids When to seek medical advice Call your healthcare provider right away if any of these occur: Your face becomes more swollen or red Pain gets worse or spreads to your neck Fever of 100.4 F (38.0 C) or higher, or as directed by your healthcare provider Pus drains from the tooth [id number] [employer] [place] [address]. All rights reserved. This information is not intended as a substitute for professional medical care. Always follow your healthcare professional's instructions. Follow Up Care 06/12/2024 12:17:19 With:BUCK RING Address: [address] [place] [address]- [facility] (1) When:06/15/2024 Comments:Schedule appointment as soon as possibleReturn to ED if symptoms worsenStart new antibiotic take probiotics dailyStart steroid pack in the a.m.Return for symptoms as describedCall Saturday morning to be seen in clinic With:AUGUSTO TEMPLE Address: [address] [place] [address]- [phone] Business (1) When:2-4 days [facility] 06-12-2024 Emergency department Discharge summary Discharge Instructions Thank you for allowing [facility] to assist you with your healthcare needs. The following is important discharge information regarding your hospital visit. Diagnosis from Today's Visit Tooth pain What to Do Next Instructions from Your Care Team No qualifying data available. Post Acute Orders No qualifying data available. You Need to Schedule the Following Appointments Follow Up with AUGUSTO TEMPLE When:Within 2-4 days Where:[address] [place], [place] [id number]- [phone] Business (1) Follow Up with BUCK RING When:In 3 days 06/15/2024 EDT Where:[address] [place] [address]- Business (1) Additional Information: Schedule appointment as soon as possible Return to ED if symptoms worsen Start new antibiotic take probiotics daily Start steroid pack in the a.m. Return for symptoms as described Call Saturday to be seen in clinic Allergies NKA Medications Please ask your primary doctor or pharmacist before taking any other medication not listed, including over the counter drugs, herbal medications, vitamins and or supplements as they may interact with your home medications. What How Much When Instructions Last Dose New amoxicillin-clavulanate (amoxicillin-clavulanate 500 mg-125 mg oral tablet) 1 tab(s) by mouth Every 8 hours Duration: 10 Days Printed Prescription New methylPREDNISolone (Medrol Dosepak 4 mg oral tablet) Per Dosepak Instructions by mouth Every day Duration: 6 Days as directed on package labeling Printed Prescription Unchanged allopurinol (allopurinol 300 mg oral tablet) 1 tab(s) TAKE 1 TABLET BY MOUTH ONCE DAILY Unchanged aspirin (Dirk Childrens Aspirin 81 mg oral tablet, (chewable)) 1 tab(s) by mouth Once a day with a meal Unchanged atorvastatin (atorvastatin 80 mg oral tablet) 1 tab(s) by mouth Every day Unchanged cilostazol (cilostazol 50 mg oral tablet) TAKE 1 TABLET BY MOUTH TWICE DAILY Unchanged clopidogrel (clopidogrel 75 mg oral tablet) 1 tab(s) TAKE 1 TABLET BY MOUTH ONCE DAILY Unchanged dicyclomine (dicyclomine 20 mg oral tablet) 1 tab(s) by mouth Four (4) times a day as needed for abdominal discomfort Unchanged glipiZIDE (glipiZIDE 5 mg oral tablet) 1 tab(s) by mouth Once a day before a meal Unchanged lisinopril (lisinopril 20 mg oral tablet) 1 tab(s) by mouth Every day Unchanged metFORMIN (metFORMIN 500 mg oral tablet) 2 tab(s) by mouth Twice daily with meals Unchanged metoprolol (metoprolol succinate 100 mg oral tablet, extended release) 1 tab(s) by mouth Once a day with a meal Unchanged nitroGLYcerin (Nitrostat 0.4 mg sublingual tablet) 1 tab(s) under the tongue Every 5 minutes as needed for as needed for chest pain Unchanged pramipexole (pramipexole 0.125 mg oral tablet) 1 tab(s) Unchanged tirzepatide (Mounjaro 5 mg/ 0.5 mL subcutaneous solution) 5 Milligram Subcutaneous Every week rotate injection sites Please take this list to your next doctor s visit. Bring all medications you take, including over the counter medications, herbals and other supplements with you to your doctor s visit. Patients and families are reminded to discard old lists and to update any records with all medication providers or retail pharmacies. Education Materials Dental Abscess An abscess is a pocket of pus at the tip of a tooth root in your jaw bone. It is caused by an infection at the root of the tooth. It can cause pain and swelling of the gum, cheek, or jaw. Pain may spread from the tooth to your ear or the area of your jaw on the same side. If the abscess isn t treated, it appears as a bubble or swelling on the gum near the tooth. The pressure that builds in this swelling is the source of the pain. More serious infections cause your face to swell. An abscess can be caused by a crack in the tooth, a cavity, a gum infection, or a combination of these. Once the pulp of the tooth is exposed, bacteria can spread down the roots to the tip. If the bacteria are not stopped, they can damage the bone and soft tissue, and an abscess can form. Home care Follow these guidelines when caring for yourself at home: Don't have hot and cold foods and drinks. Your tooth may be sensitive to changes in temperature. Don t chew on the side of the infected tooth. If your tooth is chipped or cracked, or if there is a large open cavity, put oil of cloves directly on the tooth to relieve pain. You can buy oil of cloves at drugstores. Some pharmacies carry an oqib-wsh-enmhtbf toothache kit. This contains a paste that you can put on the exposed tooth to make it less sensitive. Put a cold pack on your jaw over the sore area to help reduce pain. You may use mnmd-jlg-vtgeorc medicine to ease pain, unless another medicine was prescribed. If you have chronic liver or kidney disease, talk with your healthcare provider before using acetaminophen or ibuprofen. Also talk with your provider if you ve had a stomach ulcer or GI bleeding. An antibiotic will be prescribed. Take it until finished, even if you are feeling better after a few days. Follow-up care Follow up with your dentist or an oral surgeon, or as advised. Once an infection occurs in a tooth, it will continue to be a problem until the infection is drained. This is done through surgery or a root canal. Or you may need to have your tooth pulled. Call 911 Call 911 if any of these occur: Unusual drowsiness Headache or stiff neck Weakness or fainting Difficulty swallowing, breathing, or opening your mouth Swollen eyelids When to seek medical advice Call your healthcare provider right away if any of these occur: Your face becomes more swollen or red Pain gets worse or spreads to your neck Fever of 100.4 F (38.0 C) or higher, or as directed by your healthcare provider Pus drains from the tooth [id number] [employer]. [address] [place] [address]. All rights reserved. This information is not intended as a substitute for professional medical care. Always follow your healthcare professional's instructions. Additional Information VACCINATE! IT SAVES LIVES! Members of the community who have not yet received the COVID-19 vaccine and would like to receive it can visit one of [facility] vaccine clinics. There are many vaccine clinic locations within the [facility]. For locations and available times, please visit [email or web address] [email or web address] It is important to note that some COVID mobile vaccine clinics are held outdoors and may be canceled in rainy or stormy conditions. To learn more about pediatric vaccinations (ages 5-11), we invite you to visit the [facility] webpage. https://www.[email or web address].org/pag es/5334-Crmro-Xojsqltmczu-Frequent ij-Hqazj-Qxrsvwohx.html To learn more about the COVID-19 vaccine, we invite you to visit the CDC website for a list of frequently asked questions. https://www.cdc.gov/coronavirus/ 19-ncov/vaccines/faq.html [facility] Patient Portal Access Instructions: Stay connected with your healthcare team and access your personal medical information anytime with the [facility] Patient Portal. If you would like a full copy of your medical records please contact the [facility] Medical Records Department Saturday through Saturday between 8a.m. and 4:30p.m. Please follow the directions below to access the portal: 1.Access the email account you provided upon registration to the [facility].2.Look for an invitation email from [facility].3.Open the email and access the invitation link: Accept Invitation to [facility]4.Fill in the required olguin to create your account. Sign into www.[employer] with your username and password that you created in the above steps to stay up to date. You can then view a summary of results, a summary of your visits, and the ability to download your summaries to your computer or send the information securely to a physician. Remember that your healthcare information is confidential, so carefully consider who you will allow to register on the [facility] Patient Portal for access to your information. You can also access the [facility] Patient Portal on the [employer] darren. Simply click on Health Records under Health Data and then click on the [employer] logo. HOW TO SAFELY DISPOSE OF PRESCRIPTION MEDICATIONS Please use one of the following methods to safely dispose of your unused medications. 1.Use a drug disposal kit: the drug disposal pouch allows you to safely discard your old and unused drugs. Ask your nurse to give you one when you are discharged.2.Visit a local take-back location: Many local pharmacies and police departments have programs that collect old and unwanted prescription drugs. Call your local pharmacy or go to http://bit.ly/2J1Kh1w to find one close to you.3.Make use of household items: Use cat litter or old coffee grounds to dispose medications if other options are not available. Mix your drugs with these household products, seal them in an airtight container and throw it into the garbage. Call [facility]: [phone] to be sure your drugs can be disposed of in this way. Some medicines may require a different approach.4.Never flush your medications down the toilet. IF YOU HAVE BEEN PRESCRIBED AN OPIOIDS FOR PAIN If you have been prescribed an opioid (such as hydrocodone, oxycodone or morphine), it is critical to understand the possible side effects and risks of opioid pain medications. Even when taken as directed, opioids can have several side effects including: Tolerance, meaning you might need to take more of a medication for the same pain relief. Nausea, vomiting and/or constipation. Sleepiness, dizziness, dry mouth, confusion, depression or itching. Physical dependence, meaning you have withdrawal symptoms when a medication is stopped ? this can develop within a few days. KNOW YOUR RESPONSIBILITIES It is important to know exactly how much and how often to take the opioid pain medications you are prescribed. Never take opioids in higher amounts or more often than prescribed. Do not combine opioids with alcohol or other drugs that cause drowsiness, such as benzodiazepines, also known as benzos, including diazepam and alprazolam, muscle relaxants or sleep aids. Never sell or share prescription opioids. This is illegal. Store opioids in a secure place and out of reach of others (including children, family, friends and visitors). The last page(s) of this document has been signed and retained as a CHART COPY Signatures Patient Education Materials Dental Abscess Medication Leaflets My discharge plan and instructions have been reviewed and explained to me and ICHRISTIANE TRUDI A understand my current condition and have read and understand these discharge instructions. I have received a written copy of the plan/instructions. If I have questions, I am aware that I should contact my doctor. Patient/Cv/Cvn Cv Tsc System Operator Signature: Date/Time: Relationship to Patient: ___ Witness Name/Signature: Date/Time: [facility] 06-12-2024 Note Exam Date Time Procedure Performing Provider Status 06/12/24 3:[address] Maxillofacial w/ Contrast STEPHANY BROWN MD; Auth (Verified) [id number] ORIGINAL EXAMINATION: CT OF THE FACE WITH CONTRAST 06/12/2024 TECHNIQUE: CT of the face was performed with the administration of intravenous contrast. Multiplanar reformatted images are provided for review. Automated exposure control, iterative reconstruction, and/or weight based adjustment of the mA/kV was utilized to reduce the radiation dose to as low as reasonably achievable. COMPARISON: None. HISTORY: ORDERING SYSTEM PROVIDED HISTORY: Reason for Exam: impacted left wisdom teeth, w abscess and infection in left jaw, left facial swelling left dental abscess FINDINGS: Periapical lucency of the left maxillary 2nd premolar, with a buccal sided subperiosteal abscess measuring 1.6 x 0.6 cm in the axial plane and 1.7 cm cranio caudally. Overlying phlegmonous changes. Soft tissue swelling and edema, which extends into the infraorbital, left cheek and mandibular/submandibular region. Multiple dental caries and periapical lucencies, including of the left mandibular 2nd molar with lingual sided cortical dehiscence although without subjacent fluid collection. Mucosal thickening in the left maxillary sinus inferiorly, presumably odontogenic. IMPRESSION: Periapical lucency of the left maxillary 2nd premolar, with a buccal sided subperiosteal abscess. Interpreted by: Stephany Brown Preliminary Report By: Stephany Brown Electronically signed By Stephany Brown Dictated Date: 06/12/2024 4:01:15 PM Prelim Date: 06/12/2024 4:06:15 PM Sign Date: 06/12/2024 4:06:15 PM Ordering Provider: [facility]02-13-2025 NoteDischarge Instructions Discharge Summary [address] [place] [id number] 04/02/2024 Patient: KYRA GRANDE Sex: Female : 1960 Age: 63y Thank you for visiting [facility]. You have been evaluated today by Curtis Sood D.O. for the following condition(s): Principal Diagnosis Bronchitis. INSTRUCTIONS Prescription Medications: albuterol sulfate HFA 90 mcg/actuation aerosol inhaler: Inhale 2 puff using inhaler every six hoursas needed for sob, dispense 6.7 gram. Refills 0. Pharmacy: [facility] [id number] [place] [address]. doxycycline hyclate 100 mg capsule: Take 1 capsule by mouth twice a day for 7 days, dispense 14 capsule. Refills 0. Pharmacy: [facility] [id number] [place] [address]. prednisone 20 mg tablet: Take 2 tablet by mouth once a day for 5 days, dispense 10 tablet. Refills 0. Pharmacy: [facility] [id number] [place] [address]. Follow-up: Follow up with your healthcare provider in two days. Call for an appointment. 1 of 5 Discharge Instructions You have been given the following additional information: Bronchitis, Antibiotic Treatment (Adult) Patient Signature Facility Cv/Cvn Cv Tsc System Operator Date/Time General Instructions with ExitWriter [address] [place] [address] [phone] 04/02/2024 Patient: KYRA GRANDE Sex: Female : 1960 Age: 63y Thank you for visiting [facility]. You have been evaluated today by Curtis Sood D.O. for the following condition(s): Principal Diagnosis Bronchitis. INSTRUCTIONS Prescription Medications: albuterol sulfate HFA 90 mcg/actuation aerosol inhaler: Inhale 2 puff using inhaler every six hoursas needed for sob, dispense 6.7 gram. Refills 0. Pharmacy: [facility] [id number] [place] [address]. doxycycline hyclate 100 mg capsule: Take 1 capsule by mouth twice a day for 7 days, dispense 14 capsule. Refills 0. Pharmacy: [facility] [id number] [place] [address]. 2 of 5 Discharge Instructions prednisone 20 mg tablet: Take 2 tablet by mouth once a day for 5 days, dispense 10 tablet. Refills 0. Pharmacy: [facility] [id number] [place] [address]. Follow-up: Follow up with your healthcare provider in two days. Call for an appointment. ADDITIONAL INFORMATION Bronchitis, Antibiotic Treatment (Adult) Bronchitis is an infection of the air passages (bronchial tubes) in your lungs. It often occurs when you have a cold. This illness is contagious during the first few days and is spread through the air by coughing and sneezing, or by direct contact (touching the sick person and then touching your own eyes, nose, or mouth). 3 of 5 Discharge Instructions Symptoms of bronchitis include cough with mucus (phlegm) and low-grade fever. Bronchitis usually lasts 7 to 14 days. Mild cases can be treated with simple home remedies. More severe infection is treated with anantibiotic. Home care Follow these guidelines when caring for yourself at home: If your symptoms are severe, rest at home for the first 2 to 3 days. When you go back to your usual activities, don't let yourself get too tired. Don't smoke. Also stay away from secondhand smoke. You may use qqjj-spo-mefoqsb medicines to control fever or pain, unless another medicine was prescribed. If you have chronic liver or kidney disease or have ever had a stomach ulcer or gastrointestinal bleeding, talk with your healthcare provider before using these medicines. Also talk to your provider if you are taking medicine to prevent blood clots. Aspirin should never be given to anyone younger than 18 who is illwith a viral infection or fever. It may cause severe liver or brain damage. Your appetite may be low, so a light diet is fine. Stay well hydrated by drinking 6 to 8 glasses offluids per day. This includes water, soft drinks, sports drinks, juices, tea, or soup. Extra fluids will help loosen mucus in your nose and lungs. Xnxc-kgr-ejdlrwa cough, cold, and sore-throat medicines will not shorten the length of the illness,but they may be helpful to reduce your symptoms. Don't use decongestants if you have high blood pressure. Finish all antibiotic medicine. Do this even if you are feeling better after only a few days. Follow-up care Follow up with your healthcare provider, or as advised. If you had an X-ray or ECG (electrocardiogram), a specialist will review it. You will be told of any new test resu (more content not included)...[facility]01-03-2025 [facility] Medical Records Department [address] [place] [address] History Physical Exam 02/21/24 0647 MR#: [id number] Acct: [id number] Name: KYRA GRANDE ALEX Rep #: [id number] : 1960 63 From: Thor Galdamez DO PCP: JUAN Tidwell Status:[facility] Location: [place] [address] HPI - General General Date of Admission: 02/21/24 Date of Service: 02/21/24 Chief Complaint: nausea and diarrhea HPI Narrative KYRA GRANDE, is a 63 F who presents Chief Complaint: vomiting and diarrhea Details: KYRA GRANDE, is a 63 F who presents to the office today for LABS 04/30/2023 HGB 10.6 04/02/2023 HGB 15.8 Mom with colon cancer - she does have occasional formed stools - 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 - very scared to have an accident - symptoms started 1 month ago with watery diarrhea - no control - does not matter what she eats it just goes right through her - can settle down for a couple of days and then kicks back up - she is trying to stick to a bland diet - diarrhea wakes her in middle of the night - weight loss of 4lbs - denies any bleeding - vomiting can be clear liquid or food - she is on an ATB presently for bronchitis - prior to now denies any ATB in the past 6 months - denies any travel - denies any sick contact - denies any prior colonoscopy - she is diabetic x8 years - c/o nausea - denies any new medications or dose changes - she does experience HB - manages with [facility] 7-8 years ago - has not had issues with diarrhea post [facility] Medical History GERD (gastroesophageal reflux disease) Reflux esophagitis Kidney stones High cholesterol Generalized headaches Gout IBS (irritable bowel syndrome) Back problem Wears glasses Post-menopausal CAD (coronary artery disease) Anemia Back pain Migraine headache Syncope Dietary restriction History of IBS Former smoker Shortness of breath on exertion BiPAP (biphasic positive airway pressure) dependence History of echocardiogram History of stress test Cardiology follow-up encounter History of heart attack Hypercholesteremia Diabetes Hypertension Stroke/cerebrovascular accident Home Medications ???Medication ???Instructions ???Recorded ???Last Taken ???Type aspirin 81 mg tablet,delayed 81 mg PO DAILY@0800 HEART 02/24/15 02/16/24 History release metoprolol tartrate 100 mg tablet 100 mg PO DAILY HEART 02/24/15 02/21/24 History meclizine 25 mg tablet 25 mg PO TID PRN dizziness or 04/02/23 Unknown Rx vertigo #20 tabs allopurinol 300 mg tablet 300 mg PO DAILY GOUT 04/17/23 04/28/23 History clopidogrel 75 mg tablet 75 mg PO DAILY CAD 04/17/23 02/16/24 History dicyclomine 20 mg tablet 20 mg PO PRN PRN IBS 04/17/23 04/28/23 History atorvastatin 80 mg tablet 80 mg PO QHS Cholesterol 04/29/23 04/28/23 History glipizide 5 mg tablet, extended 5 mg PO DAILY diabetes 04/29/23 04/28/23 History release 24 hr pramipexole 0.125 mg tablet 0.125 mg PO QDAY 09/05/23 Unknown History cilostazol 50 mg tablet 50 mg PO BID #60 tabs 12/03/23 Unknown Rx lisinopril 20 mg tablet 20 mg PO QDAY 02/05/24 Unknown History nitroglycerin 0.4 mg sublingual 0.4 mg sublingual Q5M PRN chest 02/05/24 Unknown History tablet pain ondansetron 8 mg disintegrating 8 mg PO Q8H PRN nausea and vomiting 02/05/24 Unknown History tablet tirzepatide 7.5 mg/0.5 mL 7.5 mg subcut QWEEK 02/05/24 02/14/24 History subcutaneous pen injector (Mounjaro) Allergy/AdvReac Type Severity Reaction Status Date / Time No Known Allergies Allergy Verified 02/21/24 05:49 Family History Other Asthma Breast cancer CAD (coronary artery disease) Cancer Cervical cancer Colon cancer Heart disease Kidney disease Myocardial infarction Ovarian cancer Surgical History History of left-sided carotid endarterectomy History of cardiac catheterization Hx of tonsillectomy Hx of hysterectomy History of coronary artery stent placement Social History Smoking Status: Former smoker how long ago did patient quit smokin yrs alcohol intake: never substance use type: does not use ROS Constitutional Constitutional: Denies fatigue, fever(s), poor appetite, weight gain or weight loss Gastrointestinal Gastrointestinal: Denies belching, bloating, change in bowel habits, change in stool character, chewing difficulty, coffee ground emesis, constipation, cramping, diarrhea, dyspepsia, dysphagia, early satiety, excessive flatus, fecal incontinence, heartburn, hematemesis, hematochezia, hemorrhoids, loose stools, melena, nausea, odynophagia, rectal bleeding, tenes (more content not included)...[facility]03-11-[address] [facility]03-11-2024 History and physical note Author Reese Aguilar [facility] April 29, 2023 7:28am Note Date/Time April 29, 2023 7:2 8am [facility] Medical Records Department [address] [place] [address] History & Physical Exam 04/29/23 0728 MR#: [id number] Acct: [id number] Name: KYRA GRANDE Rep #:[id number] : 1960 62 From: Reese Aguilar MD PCP: JUAN Tidwell Status:ADM I N Location: [facility] A-1 History and Physical Allergies No Known Allergies Allergy (Verified 04/10/23 15:19) Medications aspirin 81 mg tablet,delayed release 81 mg PO DAILY@0800 02/24/15 [History Confirmed 04/10/23] atorvastatin 20 mg tablet 20 mg PO QHS 02/24/15 [History Confirmed 04/10/23] glipizide 10 mg tablet 10 mg PO BIDAC 02/24/15 [History Confirmed 04/10/23] metformin 500 mg tablet,extended release 24 hr 1,000 mg PO BID 02/24/15 [History Confirmed 04/10/23] metoprolol tartrate 100 mg tablet 100 mg PO DAILY 02/24/15 [History Confirmed 04/10/23] meclizine 25 mg tablet 25 mg PO TID PRN dizziness or vertigo #20 tabs 04/02/23 [Rx Confirmed 04/10/23] ondansetron 4 mg disintegrating tablet 4 mg PO Q8H PRN PRN Nausea #14 tabs 04/02/23 [Rx Confirmed 04/10/23] PFSH Medical History Diabetes Hypercholesteremia Hypertension Stroke/cerebrovascular accident Surgical History History of coronary artery stent placement Family History Other Asthma Breast cancer CAD (coronary artery disease) Cancer Colon cancer Myocardial infarction Social History Smoking Status: Former smoker how long ago did patient quit smokin yrs HPI HPI HPI: KYRA GRANDE, is a 62 F who presents to the office today for evaluation of symptomatic left carotid stenosis. On ~ Mar she awoke not feeling well and with right hand numbness/weakness. She was taken to outside hospital where MRI revealed 2 left parietal infarcts and duplex revealed >70% left ICA stenosis. She was discharged and referred to vascular surgery but was unable to get connected with them. She subsequently was further evaluated with CTA neck here and referred to us for evaluation. No prior similar events, symptoms have fully resolved. She thinks she might have had more hand numbness intermittently that was brief in duration. She has been on ASA/plavix since cardiac stents several years ago. ROS General General: No weight change, appetite, fatigue, colon cancer, breast cancer or weakness HEENT HEENT: No difficulty swallowing, eye injury, eye surgery, swollen glands or hoarseness Endo Endocrine: Yes diabetes mellitus; No thyroid disease, thyroid cancer, Hair loss, heat intolerance or cold intolerance Skin Skin: No rash or changing moles Musc Musculoskeletal: Yes gout; No back problems, arthritis, rheumatoid arthritis or joint pain Cardio Cardiovascular: Yes high blood pressure, heart attack and heart stent; No murmur, pacemaker, heart disease, atrial fibrillation, palpitations, shortness of breat with exertion or chest pain Psych Psychiatric: No depression, anxiety or hearing voices Resp Respiratory: No shortness of breath, Yes sleep apnea, No cough, No COPD, No asthma, No emphysema and No wheezing Gastro Gastrointestinal: No abdominal pain, Yes nausea or vomiting, Yes diarrhea, No constipation, No blood in stool, No acid reflux, No hemorrhoids, No ulcers, No gallbladder problem and No black,tarry stools Hussain Hematologic: No blood thinners, No blood disorders, No bleeding, No anemia and No blood clots Neuro Neurologic: No system reviewed and no additional complaints, except as documented, No as per HPI, No abnormal gait, No abnormal hearing, No abnormal movements, No abnormal speech, No behavioral changes, No burning sensations, No confusion, No convulsions, Yes disequilibrium, Yes dizziness, No localized weakness, No frequent falls, Yes headache(s), No lack of coordination, No loss of vision, No memory loss, Yes numbness, No other visual disturbances, No radicular pain, No restless legs, No sensory deficit, No syncope, Yes tingling, No tremor(s), No weakness and No other Exam Const General: cooperative, healthy appearing, comfortable, no acute distress and welldeveloped Nutritional Appearance: well nourished Orientation: alert, awake and oriented x3 [facility] Head: normocephalic and atraumatic Ears: hearing grossly normal bilaterally Nose: external nose normal Eyes General: appearance normal, both eyes and all related structures EOM: EOM intact bilaterally Neck Neck: normal visual inspection, full ROM, no lymphadenopathy and trachea midline Thyroid: thyroid normal Lymphatic: no lymphadenopathy noted Resp Effort & Inspection: normal respiratory effort, able to speak in complete sentences, symmetric chest movement, no audible wheezes, not labored, no stridorand no use of accessory muscles Cardio Rate: regular rate Rhythm: regular rhythm Pulses: brachial pulses present, radial pulses present, posterior tibial pulses present and dorsalis pedis present Skin General: no rashes or lesions noted and no erythema Wounds: no wounds Neuro Cranial Nerves: CN's II-XI intact bilaterally and EOM intact bilaterally Speech: speech normal Gait: normal gait Motor: strength 5/5 throughout Sensory Exam: no sensory deficits noted Psych Appearance: grossly normal and well kempt Mental Status: mental status grossly normal Mood: congruent mood Speech and Movement: speech and movement normal Thought Content: normal Judgment: judgment good Coding Level of Care Code Off vis,new,level 4 Diagnoses Stenosis of left internal carotid artery with cerebral infarction I63.232 Assessment and Plan Assessment and Plan (1) Stenosis of left internal carotid artery with cerebral infarction: Status: Chronic Comment: CTA- images reviewed, left ICA 83% stenosis by NASCET, right 51% NASCET Plan: -symptomatic left ICA stenosis with severe stenosis -significant calcification -plan CEA 04/29/23 0728 <Electronically signed by Reese Aguilar MD> Cosigner Signature (if applicable): CC: JUAN Temple; Dr. Reese Aguilar MD~ Signed [facility] Work Phone: [phone] Discharge summary Author Chandler Chakraborty [facility] April 02, 2023 6:26pm Note Date/Time April 02, 2023 2:40pm [facility] Medical Records Department [address] [place] [address] Emergency Department Summary 04/02/23 MR#: [id number] Acct: [id number] Name: KYRA GRANDE Rep #:[id number] : 1960 62 From: Chandler Chakraborty DO PCP: JUAN Tidwell Status:REG E R Location: ED HPI History of Present Illness Chief Complaint: Dizziness Narrative Narrative: 75-year-old female presenting with dizziness, nausea, vomiting. She states she presented to [facility] on the seventh with dizziness, headaches, nausea and vomiting and states she was about 4 days with symptoms until she was seen there. She had been admitted to the hospital admitted vascular studies that she had mixed plaques bilaterally in the carotids. There was significant stenosis in the right ICA of 70%. In the left ICA there was near occlusion. Patient discharged home to follow-up with [facility] but states nobody was callingher back. Today she has been having lightheadedness which is different than herdizziness. She originally had some double vision but now she states she has visual flashes when she moves her eyes around. She still has mild headache. She still vomiting periodically. She is able to hold down some food and fluids. She complains now of having diarrhea. No new foods or change in diet. Patientis on aspirin 81 mg daily. Patient overall feels somewhat better as her double vision is better but now concern for probably dehydration. Denies chest pain orshortness of breath. No fevers or chills. No abdominal pain. [facility] Medical History Diabetes Hypercholesteremia Hypertension Stroke/cerebrovascular accident Home Medications aspirin 81 mg tablet,delayed release 81 mg PO DAILY@0800 02/24/15 [History Last Taken Unknown] atorvastatin 20 mg tablet 20 mg PO QHS 02/24/15 [History Last Taken Unknown] glipizide 10 mg tablet 10 mg PO BIDAC 02/24/15 [History Last Taken Unknown] lisinopril 20 mg tablet 20 mg PO DAILY 02/24/15 [History Last Taken 02/25/15 04:30] metformin 500 mg tablet,extended release 24 hr 1,000 mg PO BID 02/24/15 [History Last Taken Unknown] metoprolol tartrate 100 mg tablet 100 mg PO DAILY 02/24/15 [History Last Taken 02/25/15 04:30] meclizine 25 mg tablet 25 mg PO TID PRN dizziness or vertigo #20 tabs 04/02/23 [Rx Last Taken Unknown] ondansetron 4 mg disintegrating tablet 4 mg PO Q8H PRN PRN Nausea #14 tabs 04/02/23 [Rx Last Taken Unknown] Allergy/AdvReac Type Severity Reaction Status Date / Time No Known Allergies Allergy Verified 04/02/23 13:06 Surgical History History of coronary artery stent placement Social History Smoking Status: Former smoker ROS ROS ED Constitutional Constitutional ED: Denies chills, fever(s) or sweats Eyes Eyes: Denies blurry vision or change in vision ENT ENT ED: Denies ear pain or sore throat Cardiovascular Cardiovascular: Denies chest pain, palpitations or racing heartbeat Respiratory/Chest Respiratory/Chest: Denies cough, dyspnea or sputum Gastrointestinal Gastrointestinal: Reports diarrhea, nausea and vomiting; Denies abdominal pain or constipation Genitourinary Genitourinary ED: Denies dysuria, hematuria or urinary frequency Musculoskeletal Musculoskeletal: Denies arthralgias, myalgias or neck pain Integumentary Denies abscess, Abrasions or rash Neurologic Neurologic: Reports headache(s); Denies paresthesias or weakness Psychiatric Psychiatric: Denies anxiety, depression, suicidal ideation or suicidal thoughts Endocrine Endocrinology: Denies polydipsia or polyuria EXAM Physical Exam Const Vital Signs: 04/02/23 13:06 04/02/23 14:20 04/02/23 15:00 Temperature 98.5 F Temperature Source Temporal Pulse Rate 130 H 124 H 115 H Respiratory Rate 18 21 H 29 H Blood Pressure 111/74 144/92 H Blood Pressure Mean 86 106 Pulse Ox 100 Oxygen Delivery Method Room Air 04/02/23 16:06 04/02/23 16:00 04/02/23 17:00 Temperature Temperature Source Pulse Rate 105 H 104 H Respiratory Rate 19 H 20 H Blood Pressure 137/82 H 142/100 H Blood Pressure Mean 96 113 Pulse Ox 96 95 Oxygen Delivery Method Room Air Positive well nourished General Appearance ED: NAD HEENT Reports normocephalic atraumatic Eyes PERRL and EOMs intact bilaterally Neck no lymphadenopathy Resp normal respiratory effort Auscultation: Negative for rales, rhonchi or wheezes Cardio regular rhythm Rate: tachycardic GI non-tender and non-distended Neuro oriented x3 and CN's II-XII intact bilaterally Neuro Narrative: No focal neurologic deficits or lateralizing signs or symptoms. Sensorium / Orientation: awake and alert Motor Exam: strength 5/5 throughout Psych mental status grossly normal MDM MDM MDM Narrative Medical decision making narrative: Patient presenting with nausea, vomiting, diarrhea. Recent stroke workup and discharge. She had posterior circulation stroke and some findings of carotid vessel disease. She is to follow-up with [facility] however now she is having nausea, vomiting, diarrhea. She still having headache and lightheadedness more than vertiginous dizziness symptoms. Differential includesstroke, intracranial hemorrhage, dehydration, anemia, electrolyte abnormalities,COVID, flu, influenza. Will obtain CT brain and CTA to rule out stroke or occlusive vessel disease. CBC to assess white blood cell count, hemoglobin, platelets. BMP to assess renal function, electrolytes, glucose. High-sensitivitytroponin EKG to rule out dysrhythmia. BNP to rule out CHF. Urinalysis to rule out UTI. COVID, influenza, RSV all obtained. Patient given IV fluids and meclizine help with her dizziness. CBC shows leukocytosis of 15.8. Hemoglobin 15.5. Platelets are normal at 215. Renal function and electrolytes within normal limits. Troponin 6. BNP 24.7. EKG on my interpretation showed sinus tachycardia ventricular rate of 119 bpm without sign of ischemic change. Chest ray my interpretation shows no acute process. CT of the brain she is negative for acute findings. CT brain negative. Ultimately patient counseled that we did not find anything acute for her symptoms. She feels well enough to go home and does not require rehab or inpatient care. This was offered. Patient also asked if she could follow-up with vascular surgery here at [facility] so Idid discuss with her that I would give her Dr. Aguilar's name. I do not believe she is in an urgent consult and we do not have vascular surgery on-call today. Patient amenable to this. She discharged home in stable condition. Impression: 1. History of posterior cerebellar stroke 2. Dizziness 3. Leukocytosis 4. Headache 5. Tachycardia Lab Data Attestation: I reviewed the patient's lab results. Labs: Laboratory Results - last 24 hr 04/02/23 04/02/23 04/02/23 14:25 15:25 17:41 WBC 15.8 H RBC 5.37 Hgb 15.5 H Hct 48.7 H MCV 90.7 MCH 28.9 MCHC 31.8 L RDW Std Deviation 48.5 H RDW Coeff of Afsaneh 14.7 H Plt Count 215 MPV 10.8 Immature Gran % (Auto) 1.500 H Neut % (Auto) 80.7 H Lymph % (Auto) 4.2 L [place] % (Auto) 3.6 Eos % (Auto) 9.8 H Baso % (Auto) 0.2 Absolute Neuts (auto) 12.8 H Absolute Lymphs (auto) 0.66 L Nucleated RBC % 0 Differential Comment COMMENT Sodium 143 Potassium 4.6 Chloride 109 H Carbon Dioxide 26.0 Anion Gap 8 BUN 16 Creatinine 1.01 Estim Creat Clear Calc 60.89 Est GFR (MDRD) Af Amer 72 Est GFR (MDRD) Non-Af 59 L BUN/Creatinine Ratio 15.8 Glucose 204 H Calcium 9.5 Troponin I High Sens 6 B-Natriuretic Peptide 24.7 Urine Color Yellow Urine Clarity Clear Urine pH 5.0 Ur Specific [place] 1.020 Urine Protein 15 H Urine Glucose (UA) Normal Urine Ketones 5 H Urine Occult Blood Negative Urine Nitrite Negative Urine Bilirubin 1 H Urine Urobilinogen Normal Ur Leukocyte Esterase 25 H Urine RBC 0-5 SEEN Urine WBC 5-10 SEEN Ur Squamous Epith Cells 0-5 SEEN Urine Bacteria 0 SEEN Urine Mucus RARE POC Glucose 111 H Radiography Diagnostic Testing: Clinical Impression(s) from Imaging Studies Chest X-Ray 04/02/23 14:15 IMPRESSION: No acute abnormality seen. Calcific tendinitis of the right shoulder. Electronically Signed: Darrel Knight MD at 14:33 EST , Head/Neck CTA 04/02/23 14:39 IMPRESSION: Dense calcification in the left carotid bulb and origin of the left internal carotid artery with the left internal carotid artery is narrowed greater than 50% at its origin. No other stenoses are identified. Electronically Signed: Garfield Soto MD at 17:16 EST , Discharge Plan Triage Chief Complaint: Dizziness Other Complaint: Headache Nausea/Vomiting/Diarrhea ED Provider: Chandler Chakraborty Dx/Rx/DC Orders Instructions: ED Headache Unspecified, ED Vertigo, Unspecified Prescriptions: New ondansetron 4 mg tablet,disintegrating 4 mg PO Q8H PRN PRN (Reason: Nausea) Qty: 14 0RF meclizine 25 mg tablet 25 mg PO TID PRN (Reason: dizziness or vertigo) Qty: 20 0RF No Action atorvastatin 20 MG tablet 20 mg PO QHS metoprolol tartrate 100 MG tablet 100 mg PO DAILY lisinopril 20 MG tablet 20 mg PO DAILY glipizide 10 MG tablet 10 mg PO BIDAC aspirin 81 MG tablet 81 mg PO DAILY@0800 metformin 500 MG tablet 1,000 mg PO BID Primary Care Provider: Augusto Temple NP Referrals: Reese Aguilar MD [Med Staff - Active Staff] - 3-5 Days Josephine Celaya MD [Med Staff - Fresh Food Manager] - Disposition Disposition: Home, Self Care What to do if you have Problems For any increased pain, shortness of breath, bleeding, nausea or vomiting, chestpain, or any unexpected problems, contact your Primary Care Provider. Call [facility] ([phone]) or report to the closest Emergency Room. Call 911 if necessary. 04/02/23 1826 <Electronically signed by Chandler Chakraborty DO> Cosigner Signature (if applicable): CC: DIRECTOR OF MARKET INTELLIGENCE-C Augusto Temple ~ Signed [facility] Hospital Work Phone: Discharge summary Author Reese Aguilar [facility] April 30, 2023 4:35pm Note Date/Time April 30, 2023 4:2 0pm [facility] Medical Records Department [address] [place] [address] Discharge Summary 04/30/23 1606 MR#: [id number] Acct: [id number] Name: OZIEL GRANDECARLOS Stern Rep #:[id number] : 1960 62 From: Shasta DANIELS PCP: JUAN Tidwell Status:ADM I N Location: ICU CVICU 3-1 Providers Date of Admission: 04/29/23 Date of Discharge: 04/30/23 Primary Care Physician: JUAN Tidwell Reason For Visit: Carotid Endarterectomy Medications at Discharge Home Medications aspirin 81 mg tablet,delayed release 81 mg PO DAILY@0800 HEART 02/24/15 metformin 500 mg tablet,extended release 24 hr 1,000 mg PO BID DIABETIC 02/24/15 metoprolol tartrate 100 mg tablet 100 mg PO DAILY HEART 02/24/15 meclizine 25 mg tablet 25 mg PO TID PRN dizziness or vertigo #20 tabs 04/02/23 ondansetron 4 mg disintegrating tablet 4 mg PO Q8H PRN PRN Nausea #14 tabs 04/02/23 allopurinol 300 mg tablet 300 mg PO DAILY GOUT 04/17/23 clopidogrel 75 mg tablet 75 mg PO DAILY CAD 04/17/23 dicyclomine 20 mg tablet 20 mg PO PRN PRN IBS 04/17/23 atorvastatin 80 mg tablet 80 mg PO QHS Cholesterol 04/29/23 glipizide 5 mg tablet, extended release 24 hr 5 mg PO DAILY diabetes 04/29/23 oxycodone 5 mg tablet 5 mg PO Q8H PRN PRN Pain Score 4-10 5 days #15 tabs 04/30/23 Hospital Course Summary of Care Provided Hospital Course: Mrs. Kyra Grande is a 62 y/o female who underwent L CEA on 04/29/23. Postoperatively, she was routinely admitted to the ICU for neurologic and hemodynamic monitoring. Following surgery she was noted to have tongue deviationwhich has somewhat improved overnight. The hypoglossal nerve was identified and protected during surgery, but was manipulated for necessary exposure so this tongue deviation was not unexpected. She did pass a bedside dysphagia screen. Otherwise, she has remained neurologically stable. She has remained hemodynamically stable throughout her admission. TJ drain was removed today without issue. The incision site is satisfactory in appearance. She had some urinary retention postoperatively which has improved to her baseline. She is ambulating well and her pain is well controlled. She is medically stable for discharge home today with anticipated follow-up in the office on 05/16/23. Physical Exam Const oriented x3 and no apparent distress HEENT normocephalic, head/scalp atraumatic, hearing grossly normal bilaterally, external ears normal and external nose normal Eyes EOMs intact bilaterally General Eye: normal appearance of both eyes Neck Neck Narrative: L CEA incision site with surgical glue intact. No focal swelling, erythema, ecchymosis. Resp normal respiratory effort and clear to auscultation bilaterally Cardio regular rate and regular rhythm Extremity no clubbing, cyanosis or edema Skin no rashes or lesions noted and no wounds General Skin Exam: no breakdown Neuro Neuro Narrative: Tongue deviation as noted but otherwise neurologically intact Psych mental status grossly normal Appearance: grossly normal Attitude: calm and engaged Activity / Motor Behavior: appropriate eye contact Mood & Affect: euthymic mood Judgement: judgement good Weight / BMI Weight Weight: 189 lb 6.033 oz Body Mass Index (BMI) 32.5 ABG / Lab / Microbiology Data 04/30/23 02:45 Laboratory: Laboratory Results - last 24 hr 04/29/23 17:02: POC Glucose 149 H 04/29/23 20:42: POC Glucose 191 H 04/30/23 02:42: POC Glucose 134 H 04/30/23 02:45: WBC 9.0, RBC 3.51 L, Hgb 10.6 L, Hct 32.3 L, MCV 92.0, MCH 30.2,MCHC 32.8, RDW Std Deviation 48.2 H, RDW Coeff of Afsaneh 14.4, Plt Count 179, MPV 10.8, Immature Gran % (Auto) 0.300, Neut % (Auto) 76.1 H, Lymph % (Auto) 14.1 L,[place] % (Auto) 9.3, Eos % (Auto) 0.1, Baso % (Auto) 0.1, Absolute Neuts (auto) 6.8, Absolute Lymphs (auto) 1.26, Nucleated RBC % 0 04/30/23 08:12: POC Glucose 137 H D/C Instructions Discharge Diet: No restrictions May shower in (days): 1 Weight Bearing Status: Weight bearing as tolerated Lifting Restricted to (Lbs): 20 Lifting Restrictions: Do not lift greater than 20 pounds for 3 weeks Call your doctor if your incision/area has: Sudden Increased Bleeding, IncreasedPain/ Swelling and Foul Smelling Discharge Call your doctor if you observe: Fever of 101 or Higher and Uncontrolled pain Additional Instructions: You have a small bandage over the site from which the surgical drain was removed. You may remove this bandage tomorrow. As long as there is no residual drainage, you may leave this open to air. If you do notice some continued drainage, you may re- cover with a Band-Aid. Your incision site is covered with surgical glue which will continue to protect it. The surgical glue will peel/flake off on its own over the next few weeks. Please do not pick at it. You may shower tomorrow. It is okay for soap and water to rinse over the incision site, pat to dry. Do not submerge the incision site in water such as to take a bath or [facility]. for 3 weeks. Do not lift greater than 20 pounds for 3 weeks. Otherwise, please continue withactivity as tolerated. Do not drive until you can turn your head well enough to safely check your blindspots. I have prescribed a prescription pain medication oxycodone 5 mg tablets to be taken by mouth every 8 hours as needed for pain. This is an opioid pain medication and is to be taken only as directed and as needed. Do not take in combination with any other prescription pain medications. You may take this in addition to Tylenol or ibuprofen as allowed. Follow-up in the office in 2 to 4 weeks. If an appointment has not already beenscheduled then please contact the office at [phone] to make your appointment. Please call or return to the office sooner as needed. Please Follow Up With: Shasta De Los Santos PA When: 05/16/2023 Meaningful Use Info Meaningful Use Diagnoses (Choose all that apply): None applicable Discharge Plan Admission Admit Date/Time: 04/29/23 05:28 Primary Reason for Your Visit: Left Carotid Endarterectomy Attending Provider: Reese Aguilar Primary Care Provider: Augusto Temple NP Instructions Additional Instructions / Restrictions: You have a small bandage over the site from which the surgical drain was removed. You may remove this bandage tomorrow. As long as there is no residual drainage, you may leave this open to air. If you do notice some continued drainage, you may re- cover with a Band-Aid. Your incision site is covered with surgical glue which will continue to protect it. The surgical glue will peel/flake off on its own over the next few weeks. Please do not pick at it. You may shower tomorrow. It is okay for soap and water to rinse over the incision site, pat to dry. Do not submerge the incision site in water such as to take a bath or go swimmingetc. for 3 weeks. Do not lift greater than 20 pounds for 3 weeks. Otherwise, please continue withactivity as tolerated. Do not drive until you can turn your head well enough to safely check your blindspots. I have prescribed a prescription pain medication oxycodone 5 mg tablets to be taken by mouth every 8 hours as needed for pain. This is an opioid pain medication and is to be taken only as directed and as needed. Do not take in combination with any other prescription pain medications. You may take this in addition to Tylenol or ibuprofen as allowed. Your follow-up appointment is scheduled for 05/16/2023. If you need to change this appointment or have any other questions/concerns, please contact the officeat [phone]. Discharge Orders/Prescriptions Prescriptions: New oxycodone 5 mg Tablet 5 mg PO Q8H PRN PRN (Reason: Pain Score 4-10) 5 Days Qty: 15 0RF Continued metoprolol tartrate 100 MG tablet 100 mg PO DAILY aspirin 81 MG tablet 81 mg PO DAILY@0800 metformin 500 MG tablet 1,000 mg PO BID ondansetron 4 mg tablet,disintegrating 4 mg PO Q8H PRN PRN (Reason: Nausea) Qty: 14 0RF meclizine 25 mg tablet 25 mg PO TID PRN (Reason: dizziness or vertigo) Qty: 20 0RF allopurinol 300 mg tablet 300 mg PO DAILY Patient Comments: TAKE 1 TABLET BY MOUTH ONCE DAILY dicyclomine 20 mg tablet 20 mg PO PRN PRN (Reason: IBS) Patient Comments: TAKE 1 TABLET BY MOUTH 4 TIMES DAILY NEEDED clopidogrel 75 mg tablet 75 mg PO DAILY Patient Comments: TAKE 1 TABLET BY MOUTH ONCE DAILY atorvastatin 80 mg tablet 80 mg PO QHS glipizide 5 mg tablet extended release 24hr 5 mg PO DAILY Discontinued atorvastatin 20 MG tablet 20 mg PO QHS glipizide 10 MG tablet 10 mg PO BIDAC Referrals / Follow Up: Augusto Temple DIRECTOR OF MARKET INTELLIGENCE, DIRECTOR OF MARKET INTELLIGENCE-C [Primary Care Provider] - Disposition Disposition (needs filled in before D/C Order can be placed): Home, Self Care 04/30/23 1624 <Electronically signed by Shasta DANIELS> Cosigner Signature (if applicable): 04/30/23 163 <Electronically signed by Reese Aguilar MD> CC: DIRECTOR OF MARKET INTELLIGENCE-C Augusto Temple; FRANCES Sullivan; Dr. Reese Aguilar MD~ Signed [facility] Work Phone: Evaluation + Plan note Future Appointments Appointment Date:06/16/2024 02:15:00 PM Scheduled Provider:PABLO MALDONADO Location:[facility] Appointment Type:CV OV Appointment Date:11/18/2024 01:00:00 PM Scheduled Provider:PABLO MALDONADO Location:[facility] Appointment Type:CV OV Future Scheduled Tests Radiology* MRI Spine Cervical w/ + w/o Contrast 06/17/23 * NM Myocardial Spect Rest/Stress 07/29/23 [facility] Evaluation noteNo assessment information available [facility] Work Phone: Evaluation note* Diagnosis Onset Date Resolution Status Stenosis of left internal ca rotid artery with cerebral infarction chronic [facility] Work Phone: Hospital course Narrative No data available for this section [facility] Summary Purpose Family History No Family History Records Found Relationship Condition Age at Onset Recorded Date/T bart Not Specified Malignant neoplasm of colon Unknown Coronary artery disease Unknown Myocardial infarction Unknown Malignant neoplasm of breast Unknown Malignant neoplasm Unknown Asthma Unknown Advance Directives No Advanced Directives Records Found Advance Directive Response Recorded Date/ Time Advance Directives No February 24, 2015 3:51pm Living Will No April 02, 024 1:41pm Power of Linen Clerk No April 02, 2023 1:41pm Advance Directive Response Recorded Date/ Time Advance Directives No February 24, 2015 4:51pm Living Will No April 29, 2023 1:25pm Power of Linen Clerk No April 28 1:25pm Chief Complaint and Reason for Visit Chief Complaint dizziness, vomitting , diarrhea Chief Complaint dizziness, vomitting , diarrhea CONSULT-STROKE F/U CAROTID Carotid Endarterectomy Carotid Endarterectomy Carotid Endarterectomy Reason for Visit Stenosis of left int ernal carotid artery with cerebral infarction Additional Source Comments INFORMATION SOURCE (unrecogn ized section and content) DATE CREATED AUTHOR 01/13/2021 [facility] DATE CREATED AUTHOR AUTHOR'S ORGANIZ ATION 06/15/2023 [facility] ([place]) DATE CREATED AUTHOR AUTHOR'S ORGANIZ ATION 06/12/2024 [facility] DATE CREATED AUTHOR AUTHOR'S ORGANIZ ATION 06/28/2024 [facility] DATE CREATED AUTHOR AUTHOR'S ORGANIZ ATION 07/24/2024 [facility] Care Teams (unrecognized sec tion and content) Team Status: Active Member Role Status Dates Dr. Josephine Celaya MD Family Provider Active Augusto Temple DIRECTOR OF MARKET INTELLIGENCE, DIRECTOR OF MARKET INTELLIGENCE-C Primary Care Provider Active Team Status: Inactive Member Role Status Dates Dr. Chandler Chakraborty , Emergency Provider Active Augusto Temple NP, DIRECTOR OF [employer] INTELLIGENCE-C Primary Care Provider Active Team Status: Inactive Member Role Status Dates Augusto Temple NP, DIRECTOR OF [employer] INTELLIGENCE-C Primary Care Provider, Referri ng Provider Active Dr. Reese Aguilar MD Attending Provider Active Team Status: Active Member Role Status Dates Augusto Temple NP, DIRECTOR OF [employer]TELLIGENCE-C Primary Care Provider Active Dr. Reese Aguilar MD Admit Provider, Att ending Provider, Other Provider Active Team Status: Active Member Role Status Dates Augusto Temple NP, DIRECTOR OF [employer] INTELLIGENCE-C Primary Care Provider Active Dr. Reese Aguilar MD Admit Provider, Other Provider Ac FRANCES Quijano Attending Provider Active Team Status: Inactive Member Role Status Dates Dr. Chandler Chakraborty , Attending Provider, Emergency Provider Active Augusto Temple NP, DIRECTOR OF [employer] INTELLIGENCE-C Primary Care Provider Active Team Status: Inactive Member Role Status Dates Augusto Temple NP, DIRECTOR OF [employer] INTELLIGENCE-C Primary Care Provider Active Dr. Reese Aguilar MD Admit Provider, Attending Provide r Active Goals (unrecognized section and content) Goals may be documented in a n alternate section No data available for this section FOR RECORDS PERTAINING TO PATIENTS WHO ARE [...] BE BASED ON THE PRIMARY CLINICAL RECORDS. [employer] provides no warranty or guarantee of the accuracy or completeness of information in this document.
== END | disposition home or self-care (01) ==
LOC: CVS 08:42
PROVIDERS: PCP Nurse Practitioner Family; Referring Provider Physician Assistant; Visit Provider Physician Assistant
DX: Z48.812 Encounter for surgical aftercare following surgery on the circulatory system (principal); Z98.890 Other specified postprocedural states
CPT/HCPCS: 93880

== ENCOUNTER → 2024-08-24 | Outpatient (CLI) | payer OTHER, SELFPAY | END | disposition home or self-care (01) | PROVIDERS: PCP Nurse Practitioner Family; Referring Provider Physician Assistant; Visit Provider Physician Assistant | DX: I70.211 Atherosclerosis of native arteries of extremities with intermittent claudication, right leg (principal) | CPT/HCPCS: 93924 ==